=== PATIENT | female | born 1995 | race Caucasian/White ===

== ENCOUNTER 2017-07-06 20:31 | Inpatient (IN) | payer SELFPAY ==
[2017-07-06] MEDS ORDERED: NORMAL SALINE 1000 ML 1,000 ML IV PRN (21:15)
--- NOTE | 2017-07-06 21:25 | ER Document Report ---
ED Blood Sugar Problem - General Chief Complaint: High Blood Sugar Stated Complaint: BLOOD SUGAR PROBLEMS Time Seen by Provider: 07/06/17 21:23 Mode of Arrival: Ambulatory Information source: Patient TRAVEL OUTSIDE OF THE [place] IN LAST 30 DAYS: No - HPI Patient complains to provider of: Elevated blood sugar Onset: This morning Quality of pain: No pain Associated symptoms: Increased thirst, Frequent urination, Nausea Similar symptoms previously: Yes Recently seen / treated by doctor: Yes Notes: Patient is a 21-year-old female with a history of type 1 diabetes since age 7, who presents to the emergency room today complaining of elevated blood sugar which she knows is elevated because she is increased thirst and urination, feels tired and cold, she does not have glucose test strips at home so she does not know what her blood sugar actually is, she did take 20 units of NovoLog today and 20 units of Lantus yesterday evening, patient recently moved to the area from [place], has an appointment with the [facility] on July 29, and this is now her third visit to the emergency room for elevated blood sugar with on admission within the past week as well - Related Data Allergies/Adverse Reactions: latex Allergy (Verified 07/01/17 11:09) Sulfa (Sulfonamide Antibiotics) Allergy (Verified 07/01/17 11:09) Past Medical History - General Information source: Patient - Social History Smoking Status: Current Every Day Smoker Family History: Reviewed & Not Pertinent Patient has suicidal ideation: No Patient has homicidal ideation: No Endocrine Medical History: Reports: Hx Diabetes Mellitus Type 1 Renal/ Medical History: Denies: Hx Peritoneal Dialysis Psychiatric Medical History: Reports: Hx Bipolar Disorder, Hx Depression, Hx Post Traumatic Stress Disorder Past Surgical History: Reports: Other - bilateral hernia repair as a child - Immunizations Hx Diphtheria, Pertussis, Tetanus Vaccination: Yes Review of Systems - Review of Systems Constitutional: No symptoms reported EENT: No symptoms reported Cardiovascular: No symptoms reported Respiratory: No symptoms reported Gastrointestinal: No symptoms reported Genitourinary: See HPI Female Genitourinary: No symptoms reported Musculoskeletal: No symptoms reported Skin: No symptoms reported Hematologic/Lymphatic: No symptoms reported Neurological/Psychological: No symptoms reported -: Yes All other systems reviewed and negative Physical Exam - Vital signs Vitals: Temp Pulse Resp BP Pulse Ox 98.1 F 91 18 131/82 H 100 07/06/17 20:34 07/06/17 20:34 07/06/17 20:34 07/06/17 20:34 07/06/17 20:34 Interpretation: Normal - General General appearance: Appears well, Alert - HEENT Head: Normocephalic, Atraumatic Eyes: Normal Pupils: PERRL - Respiratory Respiratory status: No respiratory distress Chest status: Nontender Breath sounds: Normal Chest palpation: Normal - Cardiovascular Rhythm: Regular Heart sounds: Normal auscultation Murmur: No - Abdominal Inspection: Normal Distension: No distension Bowel sounds: Normal Tenderness: Nontender Organomegaly: No organomegaly - Back Back: Normal, Nontender - Extremities General upper extremity: Normal inspection, Nontender, Normal color, Normal ROM , Normal temperature General lower extremity: Normal inspection, Nontender, Normal color, Normal ROM , Normal temperature, Normal weight bearing. No: Stuart's sign - Neurological Neuro grossly intact: Yes Cognition: Normal Orientation: AAOx4 [place] Coma Scale Eye Opening: Spontaneous [place] Coma Scale Verbal: Oriented [place] Coma Scale Motor: Obeys Commands [place] Coma Scale Total: 15 Speech: Normal Motor strength normal: LUE, RUE, LLE, RLE Sensory: Normal - Psychological Associated symptoms: Tearful - Skin Skin Temperature: Warm Skin Moisture: Dry Skin Color: Normal Course - Re-evaluation Re-evalutation: 07/06/17 22:51 Patient with signs and symptoms of diabetic ketoacidosis, lab values confirm this, insulin drip is started and patient will be admitted to the hospitalist service for further evaluation and treatment - Vital Signs Vital signs: Temp Pulse Resp BP Pulse Ox 98.1 F 91 18 131/82 H 100 07/06/17 20:34 07/06/17 20:34 07/06/17 20:34 07/06/17 20:34 07/06/17 20:34 - Laboratory Result Diagrams: 07/06/17 21:20 07/06/17 21:20 Laboratory results interpreted by me: 07/06/17 07/06/17 07/06/17 21:20 21:20 21:20 MCV 102 H D MCHC 31.8 L Plt Count 138 L VBG pH VBG HCO3 Sodium 125.8 L Chloride 85 L Carbon Dioxide 17 L Anion Gap 24 H Glucose 1189 H* Serum Osmolality 327 H Urine Glucose (UA) Urine Ketones 07/06/17 07/06/17 21:20 21:35 MCV MCHC Plt Count VBG pH 7.28 L VBG HCO3 16.2 L Sodium Chloride Carbon Dioxide Anion Gap Glucose Serum Osmolality Urine Glucose (UA) >=500 H Urine Ketones TRACE H Discharge - Discharge Clinical Impression: Diabetic ketoacidosis Qualifiers: Diabetes mellitus type: type 1 Diabetes mellitus complication detail: without coma Qualified Code(s): E10.10 - Type 1 diabetes mellitus with ketoacidosis without coma Condition: Fair Disposition: ADMITTED INPATIENT Admitting Provider: Hospitalist Unit Admitted: IMCU
[2017-07-06 21:47] LABS: ALANINE AMINOTRANSFERASE 31 U/L (9-52); ALKALINE PHOSPHATASE 114 U/L (38-126); ASPARTATE AMINO TRANSFERASE 31 U/L (14-36); BILIRUBIN,DIRECT 0.4 mg/dL (0.0-0.4); BILIRUBIN,TOTAL 0.9 mg/dL (0.2-1.3); BLOOD UREA NITROGEN 16 mg/dL (7-20); CALCIUM 9.7 mg/dL (8.4-10.2); CARBON DIOXIDE 17 mmol/L (22-30); CHLORIDE 85 mmol/L (98-107); CREATININE RESULT 0.77 mg/dL (0.52-1.25); POTASSIUM 4.2 mmol/L (3.6-5.0); SODIUM 125.8 mmol/L (137-145); TOTAL PROTEIN 7.7 g/dL (6.3-8.2)
[2017-07-06 21:49] LABS: VENOUS BLOOD BASE EXCESS -9.6 mmol/L; VENOUS BLOOD HCO3 16.2 mmol/L (20-32); VENOUS BLOOD PCO2 35.1 mmHg (35-63); VENOUS BLOOD PH 7.28 (7.30-7.42)
[2017-07-06 21:50] LABS: ABSOLUTE EOSINOPHILS # (AUTO) 0.1 10^3/uL (0.0-0.6); ABSOLUTE LYMPHOCYTES (AUTO) 1.7 10^3/uL (0.5-4.7); ABSOLUTE MONOCYTES (AUTO) 0.4 10^3/uL (0.1-1.4); ABSOLUTE NEUT (AUTO) 3.3 10^3/uL (1.7-8.2); BASOPHILS % (AUTO) 0.7 % (0-2); HEMATOCRIT 46.2 % (36.0-47.0); HEMOGLOBIN 14.7 g/dL (12.0-15.5); HGB HCT DIFFERENCE -2.1; LYMPHOCYTES % (AUTO) 30.6 % (13-45); MEAN CORPUSCULAR HEMOGLOBIN 32.6 pg (27.0-33.4); MEAN CORPUSCULAR HGB CONC 31.8 g/dL (32.0-36.0); MONOCYTES % (AUTO) 6.4 % (3-13); RED BLOOD COUNT 4.51 10^6/uL (3.72-5.28); RED CELL DISTRIBUTION WIDTH 13.5 % (11.5-14.0); SEGMENTED NEUTROPHILS % (AUTO) 61.3 % (42-78); WHITE BLOOD COUNT 5.4 10^3/uL (4.0-10.5)
[2017-07-06 21:54] LABS: MEAN CORPUSCULAR VOLUME 102 fl (80-97)
[2017-07-06 22:16] LABS: ANION GAP 24 (5-19)
[2017-07-06 22:17] LABS: GLUCOSE 1189 mg/dL (75-110)
[2017-07-06] MEDS ORDERED: NORMAL SALINE 100 ML with INSULIN REGULAR, HUMAN 100 UNIT IV PRN ×4 (22:19→22:26)
[2017-07-06] MEDS ORDERED: DEXTROSE 50%-WATER 25 GM/50 ML DISP.SYRIN IV PRN ×4 (22:19→22:26)
[2017-07-06] MEDS ORDERED: GLUCAGON,HUMAN RECOMB 1 MG INJ IM PRN ×2 (22:19→22:26)
[2017-07-06] MEDS ORDERED: DEXTROSE 40% GEL 15 GM TUBE PO PRN ×4 (22:19→22:26)
[2017-07-06] MEDS ORDERED: MAG HYDROX/AL HYDROX/SIMETH SUSP 30 ML UDCUP PO PRN (22:26)
[2017-07-06] MEDS ORDERED: ACETAMINOPHEN 325 MG TABLET PO PRN (22:26)
[2017-07-06] MEDS ORDERED: IPRATROPIUM/ALBUTEROL 0.5-2.5 MG/3 ML AMPUL NEB PRN (22:26)
[2017-07-06 22:35] LABS: APPEARANCE,URINE CLEAR; BILIRUBIN,URINE NEGATIVE (NEGATIVE); GLUCOSE, URINE >=500 mg/dL (NEGATIVE); KETONES,URINE TRACE mg/dL (NEGATIVE); LEUKOCYTE ESTERASE,URINE NEGATIVE (NEGATIVE); NITRITE,URINE NEGATIVE (NEGATIVE); PROTEIN,URINE NEGATIVE (NEGATIVE); URINE SPECIFIC GRAVITY 1.026; UROBILINOGEN,URINE NEGATIVE mg/dL (<2.0)
[2017-07-06] MEDS ORDERED: (PENDING PHARMACY ID) (Aripiprazole [Abilify 15 Mg Tablet] 15 MG) PO SCH (22:45)
[2017-07-06] MEDS ORDERED: INSULIN REG, HUMAN 100 UNIT/ML 3 ML VIAL (PYX) ONE (22:49)
[2017-07-06] MEDS ORDERED: TOPIRAMATE 100 MG TABLET PO ONE (23:00)
[2017-07-06] MEDS ORDERED: ARIPIPRAZOLE 5 MG TABLET PO ONE (23:00)
[2017-07-06] MEDS ORDERED: TOPIRAMATE 100 MG TABLET ONE (23:10)
[2017-07-06] MEDS ORDERED: ARIPIPRAZOLE 5 MG TABLET ONE (23:10)
[2017-07-06] MEDS: NORMAL SALINE 1000 ML 1,000 ML IV SCH (23:14)
[2017-07-06] MEDS ORDERED: HALOPERIDOL LACTATE INJ 5 MG/1 ML VIAL IV ONE (23:24)
[2017-07-06] MEDS ORDERED: HALOPERIDOL LACTATE INJ 5 MG/1 ML VIAL ONE (23:30)
[2017-07-06] MEDS ORDERED: POTASSIUM CHLORIDE 10 MEQ TABLET.SA PO ONE (23:43)
[2017-07-07 00:49] LABS: ANION GAP 14 (5-19); BLOOD UREA NITROGEN 11 mg/dL (7-20); CALCIUM 8.9 mg/dL (8.4-10.2); CARBON DIOXIDE 20 mmol/L (22-30); CHLORIDE 103 mmol/L (98-107); CREATININE RESULT 0.56 mg/dL (0.52-1.25); SODIUM 137.1 mmol/L (137-145)
[2017-07-07 01:11] LABS: GLUCOSE 394 mg/dL (75-110)
[2017-07-07] MEDS ORDERED: POTASSIUM CHLORIDE 10 MEQ TABLET.SA PO ONE (01:26)
[2017-07-07] MEDS: NORMAL SALINE 1000 ML 1,000 ML IV SCH (01:51)
[2017-07-07] MEDS: POTASSI CL 20 MEQ/50 ML RIDER 20 MEQ/50 ML RTUPB IV SCH ×2 (02:14→03:11)
[2017-07-07 05:00] LABS: ABSOLUTE EOSINOPHILS # (AUTO) 0.2 10^3/uL (0.0-0.6); ABSOLUTE LYMPHOCYTES (AUTO) 3.1 10^3/uL (0.5-4.7); ABSOLUTE MONOCYTES (AUTO) 0.6 10^3/uL (0.1-1.4); ABSOLUTE NEUT (AUTO) 2.2 10^3/uL (1.7-8.2); BASOPHILS % (AUTO) 0.7 % (0-2); EOSINOPHILS % (AUTO) 2.5 % (0-6); HEMATOCRIT 33.8 % (36.0-47.0); HGB HCT DIFFERENCE 1.9; LYMPHOCYTES % (AUTO) 51.1 % (13-45); MEAN CORPUSCULAR HEMOGLOBIN 32.5 pg (27.0-33.4); MEAN CORPUSCULAR HGB CONC 35.1 g/dL (32.0-36.0); MONOCYTES % (AUTO) 9.9 % (3-13); RED BLOOD COUNT 3.66 10^6/uL (3.72-5.28); RED CELL DISTRIBUTION WIDTH 12.2 % (11.5-14.0); SEGMENTED NEUTROPHILS % (AUTO) 35.8 % (42-78); WHITE BLOOD COUNT 6.1 10^3/uL (4.0-10.5)
[2017-07-07 05:13] LABS: MEAN CORPUSCULAR VOLUME 93 fl (80-97)
[2017-07-07 05:15] LABS: ANION GAP 10 (5-19); BLOOD UREA NITROGEN 10 mg/dL (7-20); CALCIUM 8.4 mg/dL (8.4-10.2); CARBON DIOXIDE 18 mmol/L (22-30); CHLORIDE 112 mmol/L (98-107); GLUCOSE 197 mg/dL (75-110); HEMOGLOBIN 11.9 g/dL (12.0-15.5); SODIUM 139.7 mmol/L (137-145)
[2017-07-07] MEDS ORDERED: DEXTROSE 40% GEL 15 GM TUBE PO PRN ×2 (05:39)
[2017-07-07] MEDS ORDERED: INSULIN LISPRO 100 UNIT/ML 3 ML VIAL SUBCUT PRN (05:39)
[2017-07-07] MEDS ORDERED: DEXTROSE 50%-WATER 25 GM/50 ML DISP.SYRIN IV PRN ×2 (05:39)
[2017-07-07] MEDS ORDERED: GLUCAGON,HUMAN RECOMB 1 MG INJ IM PRN (05:39)
[2017-07-07] MEDS ORDERED: HUM INSULIN NPH/REG INSULIN HM 100 UNIT/1 ML 3 ML SUBCUT ONE (05:43)
--- NOTE | 2017-07-07 06:01 | PDOC H&P ---
History of Present Illness Admission Date/PCP: 07/06/17 22:26 Patient complains of: Nausea History of Present Illness: RONIT FELIPE is a 21 year old female with a past medical history of insulin-dependent diabetes from age 7, bipolar depression and tobacco. She is recently relocated to the area and unable to fill prescriptions for insulin or diabetic supplies. Over the last 10 days she has had polyuria polydipsia and nausea prompting her to seek evaluation emergency room where she was hospitalized for severe hyperglycemia and hyperosmolar state on July 01 and discharged July 02. However she is been unsuccessful in filling her NovoLog insulin which she requires 20 units q. before meals 3 times daily. She returns with similar symptoms and found to have a blood sugar of 1189 and metabolic acidosis. She started on IV insulin and referred to the hospitalist for admission. At which time she states she hates the hospital and is leaving AGAINST MEDICAL ADVICE. Given her history of bipolar, recent outpatient failure and current critical illness of DKA and hyperosmolar state she is administered Haldol 5 mg IV 1 and warned for involuntary commitment. Patient agrees to stay overnight. She otherwise denies fever, cough, back pain or dysuria. She admits recent hospitalization for diabetic ketoacidosis. Past Medical History Cardiac Medical History: Reports: None Pulmonary Medical History: Reports: None Neurological Medical History: Reports: None Endocrine Medical History: Reports: Diabetes Mellitus Type 1 Renal/ Medical History: Reports: None Malignancy Medical History: Reports: None GI Medical History: Reports: None Musculoskeltal Medical History: Reports: None Skin Medical History: Reports: None Psychiatric Medical History: Reports: Bipolar Disorder, Depression, Post Traumatic Stress Disorder Traumatic Medical History: Reports: None Hematology: Reports: None Infectious Medical History: Reports: None Past Surgical History Past Surgical History: Reports: Other - bilateral hernia repair as a child Social History Information Source: Patient Smoking Status: Current Every Day Smoker Cigarettes Packs Per Day: 1 Frequency of Alcohol Use: None Hx Recreational Drug Use: No Drugs: None Hx Prescription Drug Abuse: No - Advance Directive Resuscitation Status: Full Code Family History 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 Parental Family History Reviewed: Yes Children Family History Reviewed: Yes Sibling(s) Family History Reviewed.: Yes Medication/Allergy Home Medications: Insulin Aspart [Novolog Flexpen] 0 unit SUBCUT .SLD SCALE #1 pen 06/27/17 Aripiprazole [Abilify 15 mg Tablet] 15 mg PO QHS 07/01/17 Insulin Glargine,Hum.rec.anlog [Lantus Solostar] 20 units SQ QHS 07/01/17 Topiramate [Topamax] 200 mg PO BID 07/01/17 Blood Sugar Diagnostic [True Metrix Glucose Test Strip] 1 each [facility] #120 strip 07/02/17 Allergies/Adverse Reactions: latex Allergy (Verified 07/01/17 11:09) Sulfa (Sulfonamide Antibiotics) Allergy (Verified 07/01/17 11:09) Review of Systems Constitutional: PRESENT: as per HPI, fatigue. ABSENT: fever(s), headache(s) Eyes: ABSENT: visual disturbances Ears: ABSENT: hearing changes Cardiovascular: ABSENT: chest pain, dyspnea on exertion, edema, orthropnea, palpitations Respiratory: ABSENT: cough, hemoptysis Gastrointestinal: ABSENT: abdominal pain, constipation, diarrhea, hematemesis, hematochezia, nausea, vomiting Genitourinary: ABSENT: dysuria, hematuria Musculoskeletal: ABSENT: joint swelling Integumentary: ABSENT: rash, wounds Neurological: ABSENT: abnormal gait, abnormal speech, confusion, dizziness, focal weakness, syncope Psychiatric: PRESENT: depression Endocrine: PRESENT: as per HPI, polydipsia, polyphagia, polyuria. ABSENT: cold intolerance, heat intolerance Hematologic/Lymphatic: ABSENT: easy bleeding, easy bruising Physical Exam Vital Signs: Temp Pulse Resp BP Pulse Ox 98.0 F 72 20 91/52 L 99 07/07/17 04:46 07/07/17 04:46 07/07/17 04:46 07/07/17 04:46 07/07/17 04:46 Intake & Output 07/05/17 07/06/17 07/07/17 11:59 11:59 11:59 Weight 50.8 kg General appearance: PRESENT: no acute distress, well-developed, well-nourished Head exam: PRESENT: atraumatic, normocephalic Eye exam: PRESENT: conjunctiva pink, EOMI, PERRLA. ABSENT: scleral icterus Ear exam: PRESENT: normal external ear exam Mouth exam: PRESENT: moist, tongue midline Neck exam: ABSENT: carotid bruit, JVD, lymphadenopathy, thyromegaly Respiratory exam: PRESENT: clear to auscultation hui. ABSENT: rales, rhonchi, wheezes Cardiovascular exam: PRESENT: RRR. ABSENT: diastolic murmur, rubs, systolic murmur Pulses: PRESENT: normal dorsalis pedis pul Vascular exam: PRESENT: normal capillary refill GI/Abdominal exam: PRESENT: normal bowel sounds, soft. ABSENT: distended, guarding, mass, organolmegaly, rebound, tenderness Rectal exam: PRESENT: deferred Extremities exam: PRESENT: full ROM. ABSENT: calf tenderness, clubbing, pedal edema Neurological exam: PRESENT: alert, awake, oriented to person, oriented to place , oriented to time, oriented to situation, CN II-XII grossly intact. ABSENT: motor sensory deficit Psychiatric exam: PRESENT: appropriate affect, normal mood. ABSENT: homicidal ideation, suicidal ideation Skin exam: PRESENT: dry, intact, warm. ABSENT: cyanosis, rash Results Laboratory Results: 07/07/17 04:18 07/07/17 04:18 07/07/17 07/07/17 07/07/17 00:24 00:24 04:18 WBC RBC Hgb Hct MCV MCH MCHC RDW Plt Count Seg Neutrophils % Lymphocytes % Monocytes % Eosinophils % Basophils % Absolute Neutrophils Absolute Lymphocytes Absolute Monocytes Absolute Eosinophils Absolute Basophils Sodium 137.1 139.7 Potassium 3.0 L* D 4.0 D Chloride 103 112 H Carbon Dioxide 20 L 18 L Anion Gap 14 10 BUN 11 10 Creatinine 0.56 0.50 L Est GFR ( Amer) > 60 > 60 Est GFR (Non-Af Amer) > 60 > 60 Glucose 394 H 197 H Calcium 8.9 8.4 Magnesium 1.8 07/07/17 04:18 WBC 6.1 RBC 3.66 L Hgb 11.9 L D Hct 33.8 L MCV 93 D MCH 32.5 MCHC 35.1 RDW 12.2 Plt Count 115 L Seg Neutrophils % 35.8 L Lymphocytes % 51.1 H Monocytes % 9.9 Eosinophils % 2.5 Basophils % 0.7 Absolute Neutrophils 2.2 Absolute Lymphocytes 3.1 Absolute Monocytes 0.6 Absolute Eosinophils 0.2 Absolute Basophils 0.0 Sodium Potassium Chloride Carbon Dioxide Anion Gap BUN Creatinine Est GFR ( Amer) Est GFR (Non-Af Amer) Glucose Calcium Magnesium Assessment & Plan - Diagnosis (1) Diabetic ketoacidosis Qualifiers: Diabetes mellitus type: type 1 Diabetes mellitus complication detail: without coma Qualified Code(s): E10.10 - Type 1 diabetes mellitus with ketoacidosis without coma Is this a current diagnosis for this admission?: Yes Plan: Diabetic ketoacidosis patient has had some degree of polyuria polydipsia with nausea and uncontrolled hyperglycemia with supporting labs. Patient will receive IV fluids IV insulin serial chemistries every 6 hours for evaluation for electrolyte repletion. Continued evaluation for underlying cause if not found Patient will require diabetic education and consideration of mental health evaluation given poor insight, recurrent admission and A1c greater than 14. (2) Dehydration Is this a current diagnosis for this admission?: Yes Plan: IV fluid hydration follow-up chemistry (3) Hyperglycemia Is this a current diagnosis for this admission?: Yes Plan: With hyperosmolar state, IV fluids IV insulin serial chemistries every 6 hours for evaluation for electrolyte repletion. Continued evaluation for underlying cause if not found Patient will require diabetic education and consideration of mental health evaluation. (4) Hyponatremia Is this a current diagnosis for this admission?: Yes Plan: Pseudohyponatremia secondary to severe hyperglycemia reevaluate with following chemistry for correction (5) Bipolar 1 disorder Is this a current diagnosis for this admission?: Yes Plan: Abi Servin consult mental health ordered (6) Tobacco abuse Is this a current diagnosis for this admission?: Yes Plan: Tobacco Dependence patient received tobacco cessation counseling and offered nicotine replacement options - Time Time Spent: 50 to 70 Minutes - Inpatient Certification Medical Necessity: Need Close Monitoring Due to Risk of Patient Decompensation
[2017-07-07] MEDS: HEPARIN SOD (PORCINE) 5,000 UNIT/ML 1 ML SYRINGE SUBCUT SCH ×2 (06:24→14:33)
[2017-07-07] MEDS: INSULIN LISPRO 100 UNIT/ML 3 ML VIAL SUBCUT SCH ×2 (08:00→12:07)
[2017-07-07] MEDS ORDERED: TOPIRAMATE 100 MG TABLET PO SCH ×2 (10:00)
[2017-07-07] MEDS ORDERED: (PENDING PHARMACY ID) (Topiramate [Topamax] 200 MG) PO SCH (10:00)
[2017-07-07] MEDS ORDERED: DOCUSATE SODIUM 100 MG CAPSULE PO SCH (10:00)
[2017-07-07] MEDS ORDERED: INSULIN GLARGINE,HUM.REC.ANLOG 300 UNIT/3 ML INSULN.PEN SUBCUT ONE (15:00)
--- NOTE | 2017-07-07 15:06 | PDOC DISCHARGE SUMMARY ---
General - Admit/Disc Date/PCP Admission Date/Primary Care Provider: 07/06/17 22:26 Discharge Date: 07/07/17 - Discharge Diagnosis (1) Diabetic ketoacidosis Is this a current diagnosis for this admission?: Yes (2) Dehydration Is this a current diagnosis for this admission?: Yes (3) Bipolar 1 disorder Is this a current diagnosis for this admission?: Yes - Additional Information Resuscitation Status: Full Code Discharge Diet: Diabetic Discharge Activity: Activity As Tolerated Home Medications: Aripiprazole [Abilify 15 mg Tablet] 15 mg PO QHS 07/07/17 Insulin Aspart [Novolog Insulin (Aspart) 100 unit/mL] 0 unit SUBCUT .SLD SCALE 07/07/17 Insulin Glargine,Hum.rec.anlog [Lantus Solostar] 20 unit SQ QHS #1 insuln.pen Topiramate [Topamax] 200 mg PO BID 07/07/17 History of Present Illness History of Present Illness: RONIT FELIPE is a 21 year old female with a history of type 1 diabetes since age 7 as well as bipolar depression who presented with complaints of polyuria and polydipsia along with nausea and vomiting. The patient has been unable to afford her insulin or diabetic supplies. The patient recently was admitted on July 01 discharge July 02 with hyperosmolar state. Patient did not have any fevers or chills. Patient has no evidence for infection and is admitted for IV fluids as well as insulin. Hospital Course Hospital Course: 21-year-old female with type 1 diabetes who presented with diabetic ketoacidosis. The patient had not been taking her medicine for the last several days because of inability to afford them. She was given IV fluids along with IV insulin and had resolution of her DKA. The patient has been instructed to go to the [facility] for help with her medications. Discharge planning also suggested that she apply for Medicaid. The patient is tolerating p.o. well and her dehydration has resolved. We will give her the Lantus pen that she used here and will be discharged home. Physical Exam Vital Signs: Temp Pulse Resp BP Pulse Ox 98.8 F 76 18 90/48 L 100 07/07/17 12:24 07/07/17 12:24 07/07/17 12:24 07/07/17 12:24 07/07/17 12:24 Intake & Output 07/06/17 07/07/17 07/08/17 06:59 06:59 06:59 Intake Total 50 591 Output Total 0 Balance 50 591 Weight 52.3 kg General appearance: PRESENT: no acute distress Eye exam: PRESENT: conjunctiva pink. ABSENT: scleral icterus Neck exam: ABSENT: JVD Respiratory exam: PRESENT: clear to auscultation hui. ABSENT: rales, rhonchi, wheezes Cardiovascular exam: PRESENT: RRR. ABSENT: diastolic murmur, rubs, systolic murmur GI/Abdominal exam: PRESENT: normal bowel sounds, soft. ABSENT: distended, guarding, mass, organolmegaly, rebound, tenderness Neurological exam: PRESENT: alert, awake, oriented to person, oriented to place , oriented to time, oriented to situation, CN II-XII grossly intact. ABSENT: motor sensory deficit Skin exam: PRESENT: dry, intact, warm. ABSENT: cyanosis, rash Results Laboratory Results: 07/07/17 04:18 07/07/17 04:18 07/07/17 07/07/17 07/07/17 00:24 00:24 04:18 WBC RBC Hgb Hct MCV MCH MCHC RDW Plt Count Seg Neutrophils % Lymphocytes % Monocytes % Eosinophils % Basophils % Absolute Neutrophils Absolute Lymphocytes Absolute Monocytes Absolute Eosinophils Absolute Basophils Sodium 137.1 139.7 Potassium 3.0 L* D 4.0 D Chloride 103 112 H Carbon Dioxide 20 L 18 L Anion Gap 14 10 BUN 11 10 Creatinine 0.56 0.50 L Est GFR ( Amer) > 60 > 60 Est GFR (Non-Af Amer) > 60 > 60 Glucose 394 H 197 H Calcium 8.9 8.4 Magnesium 1.8 07/07/17 04:18 WBC 6.1 RBC 3.66 L Hgb 11.9 L D Hct 33.8 L MCV 93 D MCH 32.5 MCHC 35.1 RDW 12.2 Plt Count 115 L Seg Neutrophils % 35.8 L Lymphocytes % 51.1 H Monocytes % 9.9 Eosinophils % 2.5 Basophils % 0.7 Absolute Neutrophils 2.2 Absolute Lymphocytes 3.1 Absolute Monocytes 0.6 Absolute Eosinophils 0.2 Absolute Basophils 0.0 Sodium Potassium Chloride Carbon Dioxide Anion Gap BUN Creatinine Est GFR ( Amer) Est GFR (Non-Af Amer) Glucose Calcium Magnesium Qualifiers [place] BEING DISCHARGED WITH ANY OF THE FOLLOWING DIAGNOSIS?: No Plan Discharge Plan: Patient is discharged home. [facility]. Time Spent: Less than 30 Minutes
[2017-07-07 15:21] VITALS: BP 100/56
[2017-07-07] MEDS ORDERED: INSULIN GLARGINE,HUM.REC.ANLOG 300 UNIT/3 ML INSULN.PEN SUBCUT SCH (22:00)
[2017-07-07] MEDS ORDERED: ARIPIPRAZOLE 5 MG TABLET PO SCH (22:00)
[2017-07-08] MEDS ORDERED: INSULIN GLARGINE,HUM.REC.ANLOG 300 UNIT/3 ML INSULN.PEN SUBCUT SCH (10:00)
== END 2017-07-07 15:59 | disposition home or self-care (01) | DRG 638 ==
LOC: ER 20:31 → EH 22:26 → UNDOADMIN 22:30 → EH 22:30 → 3W 07-07 00:45
PROVIDERS: ADMIT Internal Medicine; ATTEND Internal Medicine
DX: E10.10 Type 1 diabetes mellitus with ketoacidosis without coma (principal); E87.1 Hypo-osmolality and hyponatremia; T38.3X6A Underdosing of insulin and oral hypoglycemic [antidiabetic] drugs, initial encounter; E86.0 Dehydration; F32.9 Major depressive disorder, single episode, unspecified; Z79.4 Long term (current) use of insulin; Z59.7 Insufficient social insurance and welfare support; Z91.138 Patient's unintentional underdosing of medication regimen for other reason; F43.10 Post-traumatic stress disorder, unspecified; F17.210 Nicotine dependence, cigarettes, uncomplicated; Z88.2 Allergy status to sulfonamides; Z91.040 Latex allergy status
CPT/HCPCS: 36415; 80048; 80053; 81001; 81025; 82803; 82962; 83735; 83930; 85025; 96360; 99285; J1630; J1815; J3480; J3490; J7030

== ENCOUNTER 2017-07-22 20:54 | Emergency (ER) | payer SELFPAY ==
[2017-07-22] MEDS ORDERED: RINGERS SOLUTION,LACTATED 2,000 ML IV ONE (22:24)
[2017-07-22] MEDS ORDERED: FLUCONAZOLE 100 MG TABLET PO ONE (22:40)
--- NOTE | 2017-07-22 22:40 | ER Document Report ---
ED General - General Chief Complaint: High Blood Sugar Stated Complaint: BLOOD SUGAR PROBLEM Time Seen by Provider: 07/22/17 22:24 Notes: Patient is a 21-year-old female with past medical history of insulin-dependent type 1 diabetes who presents with hypoglycemia. Patient states that her blood sugars have been reading high at home and she was concerned about again going into diabetic ketoacidosis that she has come back to the hospital. She states that she has been rationing her insulin as she does not have access to insurance and is concerned that she will run out. She does note that she has had some mild dysuria but otherwise denies any focal complaints. Nothing improves or worsens or dysuria. She denies any fever, vomiting, flank pain, headache or neck pain. She does also state that she think she currently has a yeast infection. She has a scheduled appointment at the end of the week with the [facility]. TRAVEL OUTSIDE OF THE [place] 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 HENT: Negative for sore throat. Eyes: Negative for visual changes. Cardiovascular: Negative for chest pain. Respiratory: Negative for shortness of breath. Gastrointestinal: Negative for abdominal pain, vomiting or diarrhea. Genitourinary: Positive for dysuria. Musculoskeletal: Negative for back pain. Skin: Negative for rash. Neurological: Negative for headaches, weakness or numbness. 10 point ROS negative except as marked above and in HPI. Physical Exam - Vital signs Vitals: Temp Pulse Resp BP Pulse Ox 97.6 F 99 18 116/71 95 07/22/17 21:14 07/22/17 21:14 07/22/17 21:14 07/22/17 21:14 07/22/17 21:14 Notes: PHYSICAL EXAMINATION: GENERAL: Well-appearing, well-nourished and in no acute distress. HEAD: Atraumatic, normocephalic. EYES: Pupils equal round and reactive to light, extraocular movements intact, sclera anicteric, conjunctiva are normal. ENT: nares patent, oropharynx clear without exudates. Moist mucous membranes. NECK: Normal range of motion, supple without lymphadenopathy LUNGS: Breath sounds clear to auscultation bilaterally and equal. No wheezes rales or rhonchi. HEART: Regular rate and rhythm without murmurs ABDOMEN: Soft, nontender, normoactive bowel sounds. No guarding, no rebound. No masses appreciated. EXTREMITIES: Normal range of motion, no pitting or edema. No cyanosis. NEUROLOGICAL: No focal neurological deficits. Moves all extremities spontaneously and on command. PSYCH: Normal mood, normal affect. SKIN: Warm, Dry, normal turgor, no rashes or lesions noted. Course - Re-evaluation Re-evalutation: 07/22/17 22:39 Patient presents with hyperglycemia and associated dysuria as well as concerns of having a yeast infection. Patient knows that she is rationing her insulin and she does not have medical insurance and is trying to extend the insulin she does have to prevent herself from going back into diabetic ketoacidosis. Patient is overall nontoxic appearance, vitals within normal limits and she is in no distress. She does appear mildly dehydrated. Will obtain laboratories to evaluate for diabetic ketoacidosis as well as concern of possible urinary tract infection. Patient does report that she has symptoms of a yeast infections will treat with a single dose of fluconazole. Will begin rehydration with 2 L of IV lactated Ringer's. 07/23/17 00:44 Blood sugar is elevated at 798 although there is no evidence of diabetic ketoacidosis, blood gas is normal. Will administer 15 units of IV regular insulin, continue with fluids and recheck 07/23/17 02:21 Blood sugar has reduced down to 430. Patient has continued to tolerate oral intake. Urinalysis does show findings consistent with a possible urinary tract infection and patient will be started on cephalexin. Urine culture has been sent. Patient has been instructed to follow-up with the clinic with which she has a scheduled appointment to continue management of her chronic diabetes. We have also provided her with lancets so that she can test her blood sugar at home. I have instructed her not to ration her insulin intake and as directed. At this time will discharge with return precautions and follow-up recommendations. Verbal discharge instructions given a the bedside and opportunity for questions given. Medication warnings reviewed. Patient is in agreement with this plan and has verbalized understanding of return precautions and the need for primary care follow-up in the next 24-72 hours. - Vital Signs Vital signs: Temp Pulse Resp BP Pulse Ox 97.6 F 74 18 114/62 97 07/22/17 21:14 07/23/17 02:50 07/23/17 02:50 07/23/17 02:50 07/23/17 02:50 - Laboratory Result Diagrams: 07/22/17 23:03 07/23/17 00:05 Laboratory results interpreted by me: 07/22/17 07/22/17 07/23/17 21:19 23:03 00:05 MCV 101 H D MCHC 31.4 L Plt Count 131 L Sodium 128.6 L Chloride 95 L Carbon Dioxide 15 L BUN 28 H Glucose 794 H* POC Glucose Urine Glucose (UA) >=500 H Urine Ketones 20 H Urine Blood LARGE H 07/23/17 02:14 MCV MCHC Plt Count Sodium Chloride Carbon Dioxide BUN Glucose POC Glucose 431 H* Urine Glucose (UA) Urine Ketones Urine Blood Discharge - Discharge Clinical Impression: Hyperglycemia, Yeast infection of the vagina, Dehydration Urinary tract infection Qualifiers: Urinary tract infection type: acute cystitis Hematuria presence: without hematuria Qualified Code(s): N30.00 - Acute cystitis without hematuria Condition: Good Disposition: HOME, SELF-CARE Additional Instructions: Your urine shows findings consistent with a urinary tract infection. Please take all the antibiotics as directed even if your symptoms have improved. Please follow-up with your primary care physician as needed. Return to emergency room if you develop fever >101F, persistent vomiting, become lethargic , have severe pain in your sides, or any other symptoms that are concerning to you. You need to followup urgently with your primary care doctor as your blood sugars were dangerously high today. You did not have any evidence of a dangerous condition associated with these blood sugars at this time. However, it is very important that you get your blood sugars under control. Please take all of your medications exactly as directed. You should avoid foods that are high in carbohydrates and sugary foods. Please return to emergency department immediately if you develop weakness, persistent vomiting, confusion, or any other symptoms that are concerning to you. Prescriptions: Cephalexin Monohydrate [Keflex 500 mg Capsule] 500 mg PO Q6H 5 Days capsule
[2017-07-22 23:17] LABS: VENOUS BLOOD BASE EXCESS -5.7 mmol/L; VENOUS BLOOD HCO3 20.2 mmol/L (20-32); VENOUS BLOOD PH 7.31 (7.30-7.42)
[2017-07-22 23:25] LABS: ABSOLUTE EOSINOPHILS # (AUTO) 0.1 10^3/uL (0.0-0.6); ABSOLUTE MONOCYTES (AUTO) 0.5 10^3/uL (0.1-1.4); BASOPHILS % (AUTO) 0.6 % (0-2)
[2017-07-22 23:28] LABS: APPEARANCE,URINE SLIGHTLY-CLOUDY; BILIRUBIN,URINE NEGATIVE (NEGATIVE); GLUCOSE, URINE >=500 mg/dL (NEGATIVE); KETONES,URINE 20 mg/dL (NEGATIVE); LEUKOCYTE ESTERASE,URINE NEGATIVE (NEGATIVE); NITRITE,URINE NEGATIVE (NEGATIVE); PROTEIN,URINE NEGATIVE (NEGATIVE); URINE SPECIFIC GRAVITY 1.027; UROBILINOGEN,URINE NEGATIVE mg/dL (<2.0)
[2017-07-22 23:38] LABS: ABSOLUTE NEUT (AUTO) 4.6 10^3/uL (1.7-8.2); EOSINOPHILS % (AUTO) 0.8 % (0-6); HEMATOCRIT 44.9 % (36.0-47.0); HEMOGLOBIN 14.1 g/dL (12.0-15.5); HGB HCT DIFFERENCE -2.6; LYMPHOCYTES % (AUTO) 27.8 % (13-45); MEAN CORPUSCULAR HEMOGLOBIN 31.7 pg (27.0-33.4); MEAN CORPUSCULAR HGB CONC 31.4 g/dL (32.0-36.0); MONOCYTES % (AUTO) 7.2 % (3-13); RED BLOOD COUNT 4.45 10^6/uL (3.72-5.28); RED CELL DISTRIBUTION WIDTH 13.5 % (11.5-14.0); SEGMENTED NEUTROPHILS % (AUTO) 63.6 % (42-78); WHITE BLOOD COUNT 7.2 10^3/uL (4.0-10.5)
[2017-07-22 23:43] LABS: MEAN CORPUSCULAR VOLUME 101 fl (80-97)
[2017-07-23 00:31] LABS: ANION GAP 19 (5-19); BLOOD UREA NITROGEN 28 mg/dL (7-20); CARBON DIOXIDE 15 mmol/L (22-30); CHLORIDE 95 mmol/L (98-107); CREATININE RESULT 0.76 mg/dL (0.52-1.25); POTASSIUM 4.4 mmol/L (3.6-5.0); SODIUM 128.6 mmol/L (137-145)
[2017-07-23 00:43] LABS: GLUCOSE 794 mg/dL (75-110)
[2017-07-23] MEDS ORDERED: INSULIN REG, HUMAN 100 UNIT/ML 3 ML VIAL (PYX) IV ONE (00:43)
[2017-07-23] MEDS ORDERED: CEPHALEXIN 500 MG CAPSULE PO ONE (02:22)
[2017-07-23 02:50] VITALS: BP 114/62
== END 2017-07-23 02:50 | disposition home or self-care (01) ==
LOC: ER 20:54
DX: N30.00 Acute cystitis without hematuria (principal); E10.65 Type 1 diabetes mellitus with hyperglycemia; B37.3 Candidiasis of vulva and vagina; E86.0 Dehydration; R30.0 Dysuria
CPT/HCPCS: 99285; 96365; 96366; 36415; 87086; 82962; 85025; 81025; 80048; 81001; 82803; J1815; J7120

== ENCOUNTER 2017-07-25 21:29 | Emergency (ER) | payer OTHER ==
[2017-07-25] MEDS ORDERED: HYDROCODONE/ACETAMINOPHEN 5-325 MG TABLET PO ONE (23:14)
[2017-07-26 00:10] LABS: APPEARANCE,URINE CLEAR; BILIRUBIN,URINE NEGATIVE (NEGATIVE); GLUCOSE, URINE >=500 mg/dL (NEGATIVE); KETONES,URINE 80 mg/dL (NEGATIVE); LEUKOCYTE ESTERASE,URINE NEGATIVE (NEGATIVE); NITRITE,URINE NEGATIVE (NEGATIVE); PROTEIN,URINE NEGATIVE (NEGATIVE); URINE SPECIFIC GRAVITY 1.023; UROBILINOGEN,URINE NEGATIVE mg/dL (<2.0)
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
[2017-07-26 01:19] LABS: URINE BARBITURATES SCREEN NEGATIVE; URINE METHADONE SCREEN NEGATIVE; URINE OPIATES LOW NEGATIVE; URINE PHENCYCLIDINE SCREEN NEGATIVE
[2017-07-26 01:36] VITALS: BP 134/97
== END 2017-07-26 01:37 | disposition home or self-care (01) ==
LOC: ER 21:29
DX: F41.9 Anxiety disorder, unspecified (principal); M54.2 Cervicalgia; M54.9 Dorsalgia, unspecified; V87.7XXA Person injured in collision between other specified motor vehicles (traffic), initial encounter
CPT/HCPCS: 99284; 81025; 81001; 80307; 72125; 72128; 72131; L0120

== ENCOUNTER 2017-08-07 11:11 | Emergency (ER) | payer SELFPAY ==
[2017-08-07 11:19] VITALS: BP 113/69
--- NOTE | 2017-08-07 11:41 | ER Document Report ---
ED GI/ - General Chief Complaint: STD Exposure Stated Complaint: STD CHECK Time Seen by Provider: 08/07/17 11:18 Mode of Arrival: Ambulatory Information source: Patient Notes: 21-year-old female presents to ED for complaint of STD exposure. She states she has a fishy odor from her vaginal area. She states she does not have any is itching or discharge. TRAVEL OUTSIDE OF THE [place] IN LAST 30 DAYS: No - HPI Patient complains to provider of: Other - Vaginal discharge Onset: Other - Several days Quality of pain: No pain Pain Level: Denies Vaginal bleeding (Compared to normal period): None Sexual history: Active, Unprotected intercourse, STD exposure Associated symptoms: Other - Vaginal odor Exacerbated by: Denies Relieved by: Denies Similar symptoms previously: Yes Recently seen / treated by doctor: No - Related Data Allergies/Adverse Reactions: latex Allergy (Verified 07/22/17 21:14) Sulfa (Sulfonamide Antibiotics) Allergy (Verified 07/22/17 21:14) Past Medical History - General Information source: Patient - Social History Smoking Status: Current Every Day Smoker Cigarette use (# per day): Yes - 2 cigarettes a day Chew tobacco use (# tins/day): No Smoking Education Provided: Yes - Less than 1 minute Frequency of alcohol use: Social Drug Abuse: None Occupation: None Lives with: Spouse/Significant other Family 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, 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 Patient has suicidal ideation: No Patient has homicidal ideation: No - Past Medical History Cardiac Medical History: Reports: None Pulmonary Medical History: Reports: None EENT Medical History: Reports: None Neurological Medical History: Reports: None Endocrine Medical History: Reports: Hx Diabetes Mellitus Type 1 Renal/ Medical History: Reports: None Malignancy Medical History: Reports: None GI Medical History: Reports: None Musculoskeltal Medical History: Reports None Skin Medical History: Reports None Psychiatric Medical History: Reports: Hx Anxiety, Hx Bipolar Disorder, Hx Depression, Hx Post Traumatic Stress Disorder Traumatic Medical History: Reports: None Past Surgical History: Reports: Hx Inguinal Hernia - Immunizations Immunizations up to date: Yes Hx Diphtheria, Pertussis, Tetanus Vaccination: Yes Review of Systems - Review of Systems Constitutional: No symptoms reported EENT: No symptoms reported Cardiovascular: No symptoms reported Respiratory: No symptoms reported Gastrointestinal: No symptoms reported Genitourinary: No symptoms reported Female Genitourinary: Vaginal odor Musculoskeletal: No symptoms reported Skin: No symptoms reported Hematologic/Lymphatic: No symptoms reported Neurological/Psychological: No symptoms reported -: Yes All other systems reviewed and negative Physical Exam - Vital signs Vitals: Temp Pulse BP Pulse Ox 97.8 F 80 113/69 97 08/07/17 11:16 12 11:16 08/07/17 11:16 08/07/17 11:16 Interpretation: Normal - General General appearance: Appears well, Alert - HEENT Head: Normocephalic, Atraumatic Eyes: Normal Pupils: PERRL - Respiratory Respiratory status: No respiratory distress Chest status: Nontender Breath sounds: Normal Chest palpation: Normal - Cardiovascular Rhythm: Regular Heart sounds: Normal auscultation Murmur: No - Abdominal Inspection: Normal Distension: No distension Bowel sounds: Normal Tenderness: Nontender. No: Tender - No pelvic tenderness either Organomegaly: No organomegaly - Genitourinary External exam: Normal Speculum exam: Other - Patient did self swabs for GC and chlamydia and wet mount - Back Back: Normal, Nontender - Extremities General upper extremity: Normal inspection, Nontender, Normal color, Normal ROM , Normal temperature General lower extremity: Normal inspection, Nontender, Normal color, Normal ROM , Normal temperature, Normal weight bearing. No: Stuart's sign - Neurological Neuro grossly intact: Yes Cognition: Normal Orientation: AAOx4 [place] Coma Scale Eye Opening: Spontaneous Shira Coma Scale Verbal: Oriented [place] Coma Scale Motor: Obeys Commands [place] Coma Scale Total: 15 Speech: Normal Motor strength normal: LUE, RUE, LLE, RLE Sensory: Normal - Psychological Associated symptoms: Normal affect, Normal mood - Skin Skin Temperature: Warm Skin Moisture: Dry Skin Color: Normal Course - Vital Signs Vital signs: Temp Pulse Resp BP Pulse Ox 97.8 F 80 113/69 97 08/07/17 11:16 08/07/17 11:16 08/07/17 11:16 08/07/17 11:16 - Laboratory Laboratory results interpreted by me: 08/07/17 11:35 Urine Glucose (UA) >=500 H Urine Ketones TRACE H Urine Nitrite POSITIVE H Discharge - Discharge Clinical Impression: Vaginitis Qualifiers: Chronicity: acute Qualified Code(s): N76.0 - Acute vaginitis UTI (urinary tract infection) Qualifiers: Urinary tract infection type: acute cystitis Hematuria presence: with hematuria Qualified Code(s): N30.01 - Acute cystitis with hematuria Condition: Stable Disposition: HOME, SELF-CARE Instructions: Family Physicians / Practices, [facility] Additional Instructions: VAGINITIS: Your exam shows that you have vaginitis, a vaginal infection. The infection can be caused by a many different organisms, including trichomonas or Gardnerella. The usual symptoms are vaginal irritation and discharge. The treatment is usually antibiotics such as Flagyl. Laboratory tests can determine which germ is responsible. Use the medication as prescribed. Because this infection can be transmitted sexually, your sexual partner may need to be checked and treated also. If your physician has not discussed this with you, please check before resuming sexual relations. If a culture shows gonorrhea or chlamydia, the infection must be reported to the health department. Call the doctor if you develop pelvic pain, fever, or problems with urination, or if you don't improve as expected. VAGINOSIS, BACTERIAL: Your exam shows you have bacterial vaginosis. This condition is due to an overgrowth of bacteria in the vagina. Symptoms may include vaginal itching or pain, a smelly discharge, and sometimes burning with urination. Normally this is not transmitted by sexual contact. Vaginosis can be treated with oral or topical antibiotics. Metronidazole ( Flagyl) pills are usually effective. Topical vaginal creams include Cleocin and Metro-Gel. You should avoid sexual contact until your symptoms are all better. Call the doctor if you develop pelvic pain, fever, or problems with urination, or if you don't improve as expected. CEPHALOSPORINS: An antibiotic of the cephalosporin class has been prescribed. This type of antibiotic covers a wide variety of infections, including those of the skin, lungs, middle ear, and urinary tract. This antibiotic is somewhat similar to the penicillin family. In rare cases , a person who is allergic to penicillin will also be allergic to this medication. If you have had a severe allergic reaction to penicillin, and have not taken this antibiotic since that time, notify your doctor. Antibiotics which cover many germs ("broad spectrum" antibiotics) are more likely to cause diarrhea or "yeast" infections. Women prone to vaginal yeast problems may suffer an attack after taking this antibiotic. In infants, oral thrush (white spots "stuck" on the cheek) or yeast diaper rash may result. See your doctor if these problems occur. Call the doctor at once if you develop hives, itching, shortness of breath , or lightheadedness. DOXYCYCLINE: Doxycycline (Vibramycin, Doryx) is an antibiotic of the tetracycline family. This type of drug is useful for infections of the respiratory tract and genital tract, and is sometimes used for intestinal infections. Unlike most tetracyclines, doxycycline can be taken with food. It is longer acting, and (usually) less prone to side effects than regular tetracycline. Tetracycline antibiotics can stain immature teeth and SHOULD NOT BE TAKEN BY CHILDREN, NURSING MOTHERS, OR WOMEN. Tetracyclines can make you more prone to sunburn. Abdominal cramping, nausea, and diarrhea are occasional side effects. Women may experience vaginal yeast infections. Call the doctor at once if you develop hives, itching, shortness of breath , or lightheadedness. AZITHROMYCIN: Azithromycin (Zithromax) is a broad spectrum antibiotic in the same class as erythromycin. It can treat a variety of bacterial infections, but is most frequently used for respiratory infections. Azithromycin is extremely long-lasting. It accumulates in body tissues and continues to kill bacteria for many days. In order to improve absorption, Azithromycin should be taken at least one hour before or two hours after a meal. It does not have the same strong tendency to upset the stomach as erythromycin and is usually very well tolerated. Patients who have had a rash or other true allergic reactions to erythromycin should not take this medication. Call if you develop gastrointestinal distress, severe diarrhea, rash, hives, itching, or shortness of breath. METRONIDAZOLE: Metronidazole (Flagyl) has been prescribed. This medication is used to kill a type of bacteria called anaerobes, and protozoan parasites such as trichomonas and Giardia. Flagyl often causes a metallic taste in the mouth and mild nausea. Do not use alcohol in any form with Flagyl (including alcohol in medication elixirs). Flagyl interacts with alcohol to cause flushing, palpitations, headache, stomach cramps, and vomiting. Do not use Flagyl if you are taking Antabuse (disulfiram). Call the doctor at once if you develop rash, shortness of breath, itching, or lightheadedness. FOLLOW-UP CARE: If you have been referred to a physician for follow-up care, call the physician s office for an appointment as you were instructed or within the next two days. If you experience worsening or a significant change in your symptoms, notify the physician immediately or return to the Emergency Department at any time for re-evaluation. Prescriptions: Promethazine HCl [Phenergan 25 mg Tablet] 25 mg PO Q6HP PRN #10 tablet PRN Reason: Ciprofloxacin HCl [Cipro 500 mg Tablet] 500 mg PO BID #20 tablet Nitrofurantoin/Nitrofuran Mac [Macrobid 100 mg Capsule] 1 tab PO BID #20 capsule Referrals: [facility] [Provider Group] - Follow up as needed
[2017-08-07 11:53] LABS: AMORPHOUS SEDIMENT,URINE TRACE /HPF; APPEARANCE,URINE CLOUDY; BILIRUBIN,URINE NEGATIVE (NEGATIVE); GLUCOSE, URINE >=500 mg/dL (NEGATIVE); KETONES,URINE TRACE mg/dL (NEGATIVE); LEUKOCYTE ESTERASE,URINE NEGATIVE (NEGATIVE); NITRITE,URINE POSITIVE (NEGATIVE); PROTEIN,URINE NEGATIVE (NEGATIVE); URINE SPECIFIC GRAVITY 1.021; UROBILINOGEN,URINE NEGATIVE mg/dL (<2.0)
[2017-08-07] MEDS ORDERED: AZITHROMYCIN 250 MG TABLET PO ONE (11:53)
[2017-08-07] MEDS ORDERED: CEFTRIAXONE INJ 250 MG VIAL IM ONE (11:53)
[2017-08-07] MEDS ORDERED: LIDOCAINE 1% INJ-PF (10 MG/ML) 30 ML SDV INJ ONE (11:53)
[2017-08-07] MEDS ORDERED: NITROFURANTOIN MONOHYD/M-CRYST 100 MG CAPSULE PO ONE (11:54)
[2017-08-07] MEDS ORDERED: METRONIDAZOLE 500 MG TABLET PO ONE (11:56)
== END 2017-08-07 12:18 | disposition home or self-care (01) ==
LOC: ER 11:11
DX: N76.0 Acute vaginitis (principal); N30.01 Acute cystitis with hematuria; Z20.2 Contact with and (suspected) exposure to infections with a predominantly sexual mode of transmission; E10.9 Type 1 diabetes mellitus without complications; F17.210 Nicotine dependence, cigarettes, uncomplicated; Z71.6 Tobacco abuse counseling; Z91.040 Latex allergy status; Z88.2 Allergy status to sulfonamides
CPT/HCPCS: 99283; 96372; 87210; 81025; 81001; 87491; 87591; J3490; J0696; J8499

== ENCOUNTER 2017-08-15 11:16 | Inpatient (IN) | payer SELFPAY ==
[2017-08-15] MEDS ORDERED: NORMAL SALINE 1000 ML 1,000 ML IV ONE ×2 (11:57→21:47)
[2017-08-15] MEDS ORDERED: RINGERS SOLUTION,LACTATED 1,000 ML IV ONE (11:57)
--- NOTE | 2017-08-15 11:59 | ER Document Report ---
ED General - General Chief Complaint: High Blood Sugar Stated Complaint: BLOOD SUGAR ISSUES Time Seen by Provider: 08/15/17 11:56 Mode of Arrival: Medic Information source: Patient Notes: This is a 21-year-old female with a history of type 1 diabetes, PTSD, bipolar affective disorder who presents to the emergency room with elevated blood sugar. Patient states she ran out of her insulin yesterday (does not have insurance). Patient denies any recent illnesses. She does state she had 2 beers and a few shots last night and vomited on her friend's rug. Allergies: Sulfa and latex TRAVEL OUTSIDE OF THE [place] IN LAST 30 DAYS: No - HPI Onset: Just prior to arrival Onset/Duration: Gradual Quality of pain: No pain Severity: None Pain Level: Denies Associated symptoms: Nausea, Vomiting Exacerbated by: Denies Relieved by: Denies Similar symptoms previously: Yes Recently seen / treated by doctor: No - Related Data Allergies/Adverse Reactions: latex Allergy (Verified 07/22/17 21:14) Sulfa (Sulfonamide Antibiotics) Allergy (Verified 07/22/17 21:14) Home Medications: Current Home Medications Aripiprazole [Abilify 15 mg Tablet] 7.5 mg PO DAILY 08/15/17 [History] Insulin Aspart [Novolog Flexpen] 0 unit SUBCUT .SLD SCALE 08/15/17 [History] Insulin Glargine,Hum.rec.anlog [Lantus Solostar] 15 unit SUBCUT QHS 08/15/17 [ History] Topiramate [Topamax 100 Mg Tablet] 200 mg PO Q12 08/15/17 [History] Past Medical History - General Information source: Patient - Social History Smoking Status: Never Smoker Cigarette use (# per day): No Chew tobacco use (# tins/day): No Frequency of alcohol use: Occasional Drug Abuse: None Lives with: Friend Family 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, 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 Patient has suicidal ideation: No Patient has homicidal ideation: No Endocrine Medical History: Reports: Hx Diabetes Mellitus Type 1 Renal/ Medical History: Denies: Hx Peritoneal Dialysis Psychiatric Medical History: Reports: Hx Anxiety, Hx Bipolar Disorder, Hx Depression, Hx Post Traumatic Stress Disorder Past Surgical History: Reports: Hx Abdominal Surgery - hernia repair, Hx Inguinal Hernia - Immunizations Immunizations up to date: Yes Hx Diphtheria, Pertussis, Tetanus Vaccination: Yes Review of Systems - Review of Systems Constitutional: denies: Chills, Fever EENT: No symptoms reported Cardiovascular: No symptoms reported Respiratory: No symptoms reported Gastrointestinal: See HPI Genitourinary: No symptoms reported Female Genitourinary: No symptoms reported Musculoskeletal: No symptoms reported Skin: No symptoms reported Hematologic/Lymphatic: No symptoms reported Neurological/Psychological: No symptoms reported Physical Exam - Vital signs Vitals: Resp BP Pulse Ox 18 120/84 98 08/15/17 11:34 08/15/17 11:34 08/15/17 11:34 Notes: Physical exam: GENERAL: A 1-year-old female, alert and oriented 3, appears dehydrated HEAD: Atraumatic, normocephalic. EYES: Pupils equal round and reactive to light, extraocular movements intact, sclera anicteric, conjunctiva are normal. ENT: TMs normal, nares patent, oropharynx clear without exudates. Dry mucous membranes. NECK: Normal range of motion, supple without obvious mass or JVD. LUNGS: Breath sounds clear to auscultation bilaterally and equal. No wheezes rales or rhonchi. HEART: Regular rate and rhythm without murmurs, rubs or gallops. ABDOMEN: Soft, normoactive bowel sounds. No tenderness to palpation. No guarding, no rebound. No masses appreciated. EXTREMITIES: Normal range of motion, no pitting or edema. No clubbing or cyanosis. NEUROLOGICAL: Cranial nerves II through XII grossly intact. Normal speech, moving all extremities. PSYCH: Normal mood, normal affect. SKIN: Warm, Dry, normal turgor, no rashes or lesions noted. Course - Re-evaluation Re-evalutation: 08/15/17 13:37 The patient is given 20 cc/kg of IV fluids. Her potassium is 4.9. She has been started on an insulin drip. The plan will be admitted to the hospitalist. - Vital Signs Vital signs: Temp Pulse Resp BP Pulse Ox 98.1 F 110 H 18 117/64 97 08/15/17 16:09 08/15/17 16:40 08/15/17 16:09 08/15/17 16:09 08/15/17 16:09 - Laboratory Result Diagrams: 08/15/17 12:25 08/15/17 18:03 Laboratory results interpreted by me: 08/15/17 08/15/17 08/15/17 12:25 12:25 12:25 Hgb 15.9 H Hct 48.5 H MCV 99 H Plt Count 149 L Seg Neutrophils % 86.4 H Lymphocytes % 8.8 L VBG pH 7.13 L* VBG HCO3 14.4 L Carbon Dioxide 8 L* Anion Gap 36 H Glucose 589 H* Calcium 10.4 H AST 37 H Total Protein 8.9 H Albumin 5.4 H Urine Glucose (UA) Urine Ketones 08/15/17 12:31 Hgb Hct MCV Plt Count Seg Neutrophils % Lymphocytes % VBG pH VBG HCO3 Carbon Dioxide Anion Gap Glucose Calcium AST Total Protein Albumin Urine Glucose (UA) >=500 H Urine Ketones 80 H Critical Care Note - Critical Care Note Total time excluding time spent on procedures (mins): 60 Discharge - Discharge Clinical Impression: DKA Condition: Serious Disposition: ADMITTED INPATIENT Admitting Provider: Hospitalist - Dr Zepeda Unit Admitted: [facility]
[2017-08-15 12:34] LABS: VENOUS BLOOD BASE EXCESS -14.6 mmol/L; VENOUS BLOOD HCO3 14.4 mmol/L (20-32); VENOUS BLOOD PCO2 44.8 mmHg (35-63)
[2017-08-15 12:36] LABS: VENOUS BLOOD PH 7.13 (7.30-7.42)
[2017-08-15 12:38] LABS: ABSOLUTE BASOPHILS # (AUTO) 0.1 10^3/uL (0.0-0.2); ABSOLUTE LYMPHOCYTES (AUTO) 0.8 10^3/uL (0.5-4.7); ABSOLUTE MONOCYTES (AUTO) 0.4 10^3/uL (0.1-1.4); ABSOLUTE NEUT (AUTO) 8.1 10^3/uL (1.7-8.2); BASOPHILS % (AUTO) 0.6 % (0-2); EOSINOPHILS % (AUTO) 0.1 % (0-6); HEMATOCRIT 48.5 % (36.0-47.0); HEMOGLOBIN 15.9 g/dL (12.0-15.5); HGB HCT DIFFERENCE -0.8; LYMPHOCYTES % (AUTO) 8.8 % (13-45); MEAN CORPUSCULAR HEMOGLOBIN 32.4 pg (27.0-33.4); MEAN CORPUSCULAR HGB CONC 32.8 g/dL (32.0-36.0); MEAN CORPUSCULAR VOLUME 99 fl (80-97); MONOCYTES % (AUTO) 4.1 % (3-13); RED BLOOD COUNT 4.91 10^6/uL (3.72-5.28); RED CELL DISTRIBUTION WIDTH 13.6 % (11.5-14.0); SEGMENTED NEUTROPHILS % (AUTO) 86.4 % (42-78); WHITE BLOOD COUNT 9.3 10^3/uL (4.0-10.5)
[2017-08-15 12:48] LABS: APPEARANCE,URINE CLEAR; BILIRUBIN,URINE NEGATIVE (NEGATIVE); GLUCOSE, URINE >=500 mg/dL (NEGATIVE); KETONES,URINE 80 mg/dL (NEGATIVE); LEUKOCYTE ESTERASE,URINE NEGATIVE (NEGATIVE); NITRITE,URINE NEGATIVE (NEGATIVE); PROTEIN,URINE NEGATIVE (NEGATIVE); URINE SPECIFIC GRAVITY 1.026; UROBILINOGEN,URINE NEGATIVE mg/dL (<2.0)
[2017-08-15 12:51] LABS: ALANINE AMINOTRANSFERASE 48 U/L (9-52); ALBUMIN 5.4 g/dL (3.5-5.0); ALKALINE PHOSPHATASE 116 U/L (38-126); ASPARTATE AMINO TRANSFERASE 37 U/L (14-36); BILIRUBIN,DIRECT 0.4 mg/dL (0.0-0.4); BILIRUBIN,TOTAL 0.5 mg/dL (0.2-1.3); BLOOD UREA NITROGEN 18 mg/dL (7-20); CALCIUM 10.4 mg/dL (8.4-10.2); CHLORIDE 101 mmol/L (98-107); CREATININE RESULT 0.75 mg/dL (0.52-1.25); POTASSIUM 4.9 mmol/L (3.6-5.0); TOTAL PROTEIN 8.9 g/dL (6.3-8.2)
[2017-08-15 13:01] LABS: ANION GAP 36 (5-19); GLUCOSE 589 mg/dL (75-110)
[2017-08-15 13:02] LABS: CARBON DIOXIDE 8 mmol/L (22-30)
[2017-08-15] MEDS ORDERED: NORMAL SALINE 100 ML with INSULIN REGULAR, HUMAN 100 UNIT IV PRN ×2 (13:18)
[2017-08-15] MEDS ORDERED: NORMAL SALINE 1000 ML 1,000 ML IV PRN ×2 (14:42→21:47)
[2017-08-15] MEDS ORDERED: METOCLOPRAMIDE HCL INJ/PF 10 MG/2 ML SDV IV PRN (14:42)
[2017-08-15] MEDS ORDERED: ACETAMINOPHEN 325 MG TABLET PO PRN (14:42)
[2017-08-15] MEDS ORDERED: DEXTROSE 50%-WATER 25 GM/50 ML DISP.SYRIN IV PRN ×2 (14:49)
[2017-08-15] MEDS ORDERED: GLUCAGON,HUMAN RECOMB 1 MG INJ IM PRN (14:49)
[2017-08-15] MEDS ORDERED: DEXTROSE 40% GEL 15 GM TUBE PO PRN ×2 (14:49)
[2017-08-15] MEDS ORDERED: DEXTROSE 5%-1/2 NORMAL SALINE 1,000 ML IV ONE (15:12)
[2017-08-15] MEDS ORDERED: DEXTROSE 5%-NORMAL SALINE 1,000 ML IV PRN (15:17)
[2017-08-15] MEDS ORDERED: POTASSI CL 20 MEQ/D5-1/2NS 1L 1000 ML IV PRN (16:18)
[2017-08-15] MEDS ORDERED: INSULIN, REGULAR 100 UNIT/100 ML NORMAL SALINE IV PRN ×2 (16:18)
--- NOTE | 2017-08-15 16:18 | PDOC H&P ---
History of Present Illness Admission Date/PCP: 08/15/17 13:45 History of Present Illness: RONIT FELIPE is a 21 year old white female with a past medical history of type 1 diabetes mellitus who presents with DKA. The patient states that she began throwing up early this morning. She went out last night with some friends of hers and had a couple of beers and a couple of shots. She states that she has not been sick with any fevers or chills. She denies any diarrhea, chest pain or shortness of breath. She states that she is no longer nauseous and has not thrown up. She recently moved here from [place] about a month ago. She ran out of her insulin as of yesterday. Past Medical History Endocrine Medical History: Reports: Diabetes Mellitus Type 1 Psychiatric Medical History: Reports: Bipolar Disorder, Depression, Post Traumatic Stress Disorder Past Surgical History Past Surgical History: Reports: Herniorrhaphy Social History Information Source: Patient Smoking Status: Never Smoker Frequency of Alcohol Use: None Hx Recreational Drug Use: No Drugs: None Hx Prescription Drug Abuse: No - Advance Directive Resuscitation Status: Do Not Resuscitate Family History Family 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, Other - OPERATIONS ASST malignancy Parental Family History Reviewed: Yes Children Family History Reviewed: NA Sibling(s) Family History Reviewed.: Yes Medication/Allergy Home Medications: Aripiprazole [Abilify 15 mg Tablet] 7.5 mg PO DAILY 08/15/17 Insulin Aspart [Novolog Flexpen] 0 unit SUBCUT .SLD SCALE 08/15/17 Insulin Glargine,Hum.rec.anlog [Lantus Solostar] 15 unit SUBCUT QHS 08/15/17 Topiramate [Topamax 100 Mg Tablet] 200 mg PO Q12 08/15/17 Allergies/Adverse Reactions: latex Allergy (Verified 07/22/17 21:14) Sulfa (Sulfonamide Antibiotics) Allergy (Verified 07/22/17 21:14) Review of Systems Review of Systems: Patient admits to chills. She denies fevers. She has nausea and vomiting but this has subsided. She denies blood in the urine, blood in the stool, coughing up blood or throwing up blood. She has not been around any sick contacts. She denies constipation or diarrhea or abdominal pain. She denies chest pain but reports some occasional shortness of breath. She denies loss of appetite and feels that she has lost weight but cannot quantify how much. Physical Exam Vital Signs: Temp Pulse Resp BP Pulse Ox 23 H 99/60 L 97 08/15/17 14:01 08/15/17 14:01 08/15/17 14:01 GENERAL: This is a well-developed well-nourished thin white female resting in bed currently in no acute distress. HEENT normocephalic atraumatic. Trachea is midline. Moist mucous membranes. Sclera are anicteric. HEART: Tachycardic. No murmurs, rubs or gallops. LUNGS: Clear to auscultation bilaterally with equal rise and fall of the chest. ABDOMEN: Soft, nontender, nondistended with normoactive bowel sounds EXTREMETIES: No clubbing, cyanosis or edema. 2+ peripheral pulses bilaterally. NEURO: Awake, alert and oriented 3. Cranial nerves II through XII are grossly intact. Psych: Disgruntled Assessment & Plan - Diagnosis (1) Diabetic ketoacidosis Qualifiers: Diabetes mellitus type: type 1 Diabetes mellitus complication detail: without coma Qualified Code(s): E10.10 - Type 1 diabetes mellitus with ketoacidosis without coma Is this a current diagnosis for this admission?: Yes Plan: Begin DKA protocol. Every hour Accu-Cheks with every 2 hour BMPs. Continue insulin drip on the floor. Monitor electrolytes. (2) Bipolar 1 disorder Is this a current diagnosis for this admission?: Yes - Time Time Spent: 50 to 70 Minutes
[2017-08-15 16:43] LABS: BLOOD UREA NITROGEN 14 mg/dL (7-20); CALCIUM 9.1 mg/dL (8.4-10.2); CHLORIDE 102 mmol/L (98-107); CREATININE RESULT 0.52 mg/dL (0.52-1.25); GLUCOSE 293 mg/dL (75-110); POTASSIUM 4.4 mmol/L (3.6-5.0); SODIUM 137.1 mmol/L (137-145)
[2017-08-15 16:59] LABS: ANION GAP 15 (5-19)
[2017-08-15 17:02] LABS: CARBON DIOXIDE 20 mmol/L (22-30)
[2017-08-15] MEDS ORDERED: INFLUENZA ADLT QUAD (36MOS+) 2017-18 VAC 0.5 ML SYR IM PRN (17:22)
[2017-08-15 18:24] LABS: ANION GAP 16 (5-19); BLOOD UREA NITROGEN 15 mg/dL (7-20); CARBON DIOXIDE 19 mmol/L (22-30); CHLORIDE 100 mmol/L (98-107); CREATININE RESULT 0.67 mg/dL (0.52-1.25); POTASSIUM 4.6 mmol/L (3.6-5.0); SODIUM 134.8 mmol/L (137-145)
[2017-08-15 18:42] LABS: GLUCOSE 535 mg/dL (75-110)
[2017-08-15 20:52] LABS: ANION GAP 18 (5-19); BLOOD UREA NITROGEN 14 mg/dL (7-20); CALCIUM 9.2 mg/dL (8.4-10.2); CARBON DIOXIDE 16 mmol/L (22-30); CHLORIDE 103 mmol/L (98-107); CREATININE RESULT 0.62 mg/dL (0.52-1.25); GLUCOSE 341 mg/dL (75-110); POTASSIUM 4.3 mmol/L (3.6-5.0); SODIUM 136.9 mmol/L (137-145)
[2017-08-15] MEDS: TOPIRAMATE 100 MG TABLET PO SCH (22:35)
[2017-08-16] MEDS: POTASSI CL 20 MEQ/D5-1/2NS 1L 1,000 ML IV PRN ×2 (00:12→05:19)
[2017-08-16 01:04] LABS: ANION GAP 11 (5-19); BLOOD UREA NITROGEN 13 mg/dL (7-20); CARBON DIOXIDE 21 mmol/L (22-30); CHLORIDE 107 mmol/L (98-107); CREATININE RESULT 0.51 mg/dL (0.52-1.25); GLUCOSE 134 mg/dL (75-110); SODIUM 138.8 mmol/L (137-145)
[2017-08-16 01:23] LABS: POTASSIUM 3.3 mmol/L (3.6-5.0)
[2017-08-16 06:00] LABS: HEMATOCRIT 34.4 % (36.0-47.0); HGB HCT DIFFERENCE 1.6; MEAN CORPUSCULAR HEMOGLOBIN 32.4 pg (27.0-33.4); MEAN CORPUSCULAR HGB CONC 34.9 g/dL (32.0-36.0); RED BLOOD COUNT 3.69 10^6/uL (3.72-5.28); RED CELL DISTRIBUTION WIDTH 13.6 % (11.5-14.0); WHITE BLOOD COUNT 7.1 10^3/uL (4.0-10.5)
[2017-08-16 06:06] LABS: MEAN CORPUSCULAR VOLUME 93 fl (80-97)
[2017-08-16 06:16] LABS: ANION GAP 10 (5-19); BLOOD UREA NITROGEN 11 mg/dL (7-20); CALCIUM 8.5 mg/dL (8.4-10.2); CARBON DIOXIDE 22 mmol/L (22-30); CHLORIDE 108 mmol/L (98-107); CREATININE RESULT 0.55 mg/dL (0.52-1.25); GLUCOSE 133 mg/dL (75-110); POTASSIUM 3.6 mmol/L (3.6-5.0); SODIUM 140.4 mmol/L (137-145)
[2017-08-16] MEDS ORDERED: ARIPIPRAZOLE 7.5 MG PO SCH (10:00)
[2017-08-16] MEDS ORDERED: ARIPIPRAZOLE 5 MG TABLET PO SCH ×2 (10:00→22:00)
[2017-08-16 10:17] LABS: ANION GAP 10 (5-19); BLOOD UREA NITROGEN 8 mg/dL (7-20); CARBON DIOXIDE 18 mmol/L (22-30); CHLORIDE 113 mmol/L (98-107); CREATININE RESULT 0.56 mg/dL (0.52-1.25); GLUCOSE 119 mg/dL (75-110); POTASSIUM 3.3 mmol/L (3.6-5.0); SODIUM 141.4 mmol/L (137-145)
[2017-08-16] MEDS ORDERED: POTASSI CL 20 MEQ/50 ML RIDER 20 MEQ/50 ML RTUPB IV ONE (11:12)
--- NOTE | 2017-08-16 12:35 | PDOC PROGRESS REPORT ---
Subjective Progress Note for:: 08/16/17 Subjective:: There is a follow-up visit for DKA. The patient's gap has closed at this point. Blood sugars are in the 100s. The patient usually takes Lantus 20 in the evening as well as sliding scale insulin throughout the day at meals. She tells me that she will not be able to afford Lantus on discharge and that she can likely afford 70/30. The patient is hungry and would like to eat. Reason For Visit: DKA Physical Exam Vital Signs: Temp Pulse Resp BP Pulse Ox 97.9 F 94 18 107/66 98 08/16/17 12:24 08/16/17 12:24 08/16/17 12:24 08/16/17 12:24 08/16/17 12:24 Intake & Output 08/15/17 08/16/17 08/17/17 06:59 06:59 06:59 Intake Total 4606 Output Total 1200 Balance 3406 Weight 50.3 kg GENERAL: This is a well-developed well-nourished thin white female resting in bed currently in no acute distress. HEENT normocephalic atraumatic. Trachea is midline. Moist mucous membranes. Sclera are anicteric. HEART: Tachycardic. No murmurs, rubs or gallops. LUNGS: Clear to auscultation bilaterally with equal rise and fall of the chest. ABDOMEN: Soft, nontender, nondistended with normoactive bowel sounds EXTREMETIES: No clubbing, cyanosis or edema. 2+ peripheral pulses bilaterally. NEURO: Awake, alert and oriented 3. Cranial nerves II through XII are grossly intact. Psych: Disgruntled Results Laboratory Results: 08/16/17 04:25 08/16/17 09:17 08/15/17 08/15/17 08/15/17 16:15 18:03 20:28 WBC RBC Hgb Hct MCV MCH MCHC RDW Plt Count Sodium 137.1 134.8 L 136.9 L Potassium 4.4 4.6 4.3 Chloride 102 100 103 Carbon Dioxide 20 L D 19 L 16 L Anion Gap 15 16 18 BUN 14 15 14 Creatinine 0.52 0.67 0.62 Est GFR ( Amer) > 60 > 60 > 60 Est GFR (Non-Af Amer) > 60 > 60 > 60 Glucose 293 H 535 H* 341 H Calcium 9.1 9.0 9.2 Magnesium TSH 08/16/17 08/16/17 08/16/17 00:30 04:25 04:25 WBC 7.1 RBC 3.69 L Hgb 12.0 D Hct 34.4 L MCV 93 D MCH 32.4 MCHC 34.9 RDW 13.6 Plt Count 115 L Sodium 138.8 140.4 Potassium 3.3 L D 3.6 Chloride 107 108 H Carbon Dioxide 21 L 22 Anion Gap 11 10 BUN 13 11 Creatinine 0.51 L 0.55 Est GFR ( Amer) > 60 > 60 Est GFR (Non-Af Amer) > 60 > 60 Glucose 134 H 133 H Calcium 9.0 8.5 Magnesium 2.0 TSH 08/16/17 08/16/17 04:25 09:17 WBC RBC Hgb Hct MCV MCH MCHC RDW Plt Count Sodium 141.4 Potassium 3.3 L Chloride 113 H Carbon Dioxide 18 L Anion Gap 10 BUN 8 Creatinine 0.56 Est GFR ( Amer) > 60 Est GFR (Non-Af Amer) > 60 Glucose 119 H Calcium 9.0 Magnesium TSH 0.86 Assessment & Plan - Diagnosis (1) Diabetic ketoacidosis Qualifiers: Diabetes mellitus type: type 1 Diabetes mellitus complication detail: without coma Qualified Code(s): E10.10 - Type 1 diabetes mellitus with ketoacidosis without coma Is this a current diagnosis for this admission?: Yes Plan: Discontinue insulin and discontinue IV fluids. Replace potassium. The patient may have an ADA diet. Monitor blood sugars before meals at bedtime. We will need to decide about what type of insulin for long-acting control to use considering the patient's finances. (2) Bipolar 1 disorder Is this a current diagnosis for this admission?: Yes Plan: Continue Abilify in the evening. The patient states that she does not have her Abilify that her bipolar will get so out of control that she will start to feel as though she would like to kill herself. - Time Time Spent with patient: 15-24 minutes Anticipated discharge: Home Within: within 24 hours
[2017-08-16] MEDS: INSULIN REG, HUMAN 100 UNIT/ML 3 ML VIAL (PYX) SUBCUT PRN ×3 (13:22→22:11)
[2017-08-16] MEDS: TOPIRAMATE 100 MG TABLET PO SCH ×2 (13:30→21:44)
[2017-08-16 15:11] LABS: ANION GAP 14 (5-19); BLOOD UREA NITROGEN 10 mg/dL (7-20); CALCIUM 8.7 mg/dL (8.4-10.2); CARBON DIOXIDE 16 mmol/L (22-30); CHLORIDE 107 mmol/L (98-107); SODIUM 137.3 mmol/L (137-145)
[2017-08-16 15:32] LABS: GLUCOSE 446 mg/dL (75-110); POTASSIUM 5.3 mmol/L (3.6-5.0)
[2017-08-16] MEDS ORDERED: HUM INSULIN NPH/REG INSULIN HM 100 UNIT/1 ML 3 ML SUBCUT SCH (16:00)
[2017-08-17 06:40] LABS: ANION GAP 15 (5-19); BLOOD UREA NITROGEN 17 mg/dL (7-20); CALCIUM 9.6 mg/dL (8.4-10.2); CARBON DIOXIDE 16 mmol/L (22-30); CHLORIDE 104 mmol/L (98-107); CREATININE RESULT 0.65 mg/dL (0.52-1.25); MAGNESIUM 2.1 mg/dL (1.6-2.3)
[2017-08-17] MEDS ORDERED: INSULIN REG, HUMAN 100 UNIT/ML 3 ML VIAL (PYX) IV ONE (06:45)
[2017-08-17 07:08] LABS: GLUCOSE 570 mg/dL (75-110)
[2017-08-17] MEDS: HUM INSULIN NPH/REG INSULIN HM 100 UNIT/1 ML 3 ML SUBCUT SCH ×2 (08:24→16:59)
[2017-08-17] MEDS: TOPIRAMATE 100 MG TABLET PO SCH (09:22)
[2017-08-17] MEDS: INSULIN REG, HUMAN 100 UNIT/ML 3 ML VIAL (PYX) SUBCUT PRN (12:05)
[2017-08-17 12:38] LABS: APPEARANCE,URINE CLOUDY; BILIRUBIN,URINE NEGATIVE (NEGATIVE); GLUCOSE, URINE >=500 mg/dL (NEGATIVE); KETONES,URINE 20 mg/dL (NEGATIVE); LEUKOCYTE ESTERASE,URINE LARGE (NEGATIVE); NITRITE,URINE NEGATIVE (NEGATIVE); PROTEIN,URINE NEGATIVE (NEGATIVE); URINE SPECIFIC GRAVITY 1.029; UROBILINOGEN,URINE NEGATIVE mg/dL (<2.0)
--- NOTE | 2017-08-17 16:23 | PDOC DISCHARGE SUMMARY ---
General - Admit/Disc Date/PCP Admission Date/Primary Care Provider: 08/15/17 13:45 - Discharge Diagnosis (1) Diabetic ketoacidosis Is this a current diagnosis for this admission?: Yes (2) Bipolar 1 disorder Is this a current diagnosis for this admission?: Yes - Additional Information Resuscitation Status: Do Not Resuscitate Prescriptions: Aripiprazole [Abilify 15 mg Tablet] 7.5 mg PO DAILY #30 tablet Hum Insulin NPH/Reg Insulin Hm [Insulin 70-30 (NPH/Reg) 100 unit/mL] 10 unit SUBCUT BIDACBS #100 Topiramate [Topamax 100 mg Tablet] 200 mg PO Q12 #60 tablet Home Medications: Aripiprazole [Abilify 15 mg Tablet] 7.5 mg PO DAILY #30 tablet 08/17/17 Hum Insulin NPH/Reg Insulin Hm [Insulin 70-30 (NPH/Reg) 100 unit/mL] 10 unit SUBCUT BIDACBS #100 08/17/17 Topiramate [Topamax 100 mg Tablet] 200 mg PO Q12 #60 tablet 08/17/17 History of Present Illness History of Present Illness: RONIT FELIPE is a 21 year old white female with a past medical history of type 1 diabetes mellitus who presents with DKA. The patient states that she began throwing up early this morning. She went out last night with some friends of hers and had a couple of beers and a couple of shots. She states that she has not been sick with any fevers or chills. She denies any diarrhea, chest pain or shortness of breath. She states that she is no longer nauseous and has not thrown up. She recently moved here from [place] about a month ago. She ran out of her insulin as of yesterday. Hospital Course Hospital Course: Patient was admitted to the service and started on an insulin drip. Her anion gap closed and she was able to be weaned off the drip. Unfortunately the patient still had high blood sugars at times. Unfortunately we could not start her back on her home Lantus due to financial reasons. So the patient was started on 10 units of 70/30 twice daily. By the end of the day of discharge her blood sugar was down to 290. She was provided a prescription for glucometer , lancets and strips. She was also provided a prescription for her Abilify, insulin 70/30, and topiramate. The patient was [facility]. Patient was very disgruntled while she was here. Most of it was related to wanting to eat and then wanting to be discharged. My concern for this patient is that she will quite easily bounced back due to lack of insulin and noncompliance. I hope that she does well. She was told to return through the emergency room if she has any difficulties. Physical Exam Vital Signs: Temp Pulse Resp BP Pulse Ox 98.3 F 93 17 104/59 L 99 08/17/17 08:16 08/17/17 08:16 08/17/17 08:16 08/17/17 08:16 08/17/17 08:16 Intake & Output 08/16/17 08/17/17 08/18/17 06:59 06:59 06:59 Intake Total 4606 2846 Output Total 1200 Balance 3406 2846 Weight 50.3 kg 48.2 kg GENERAL: This is a well-developed well-nourished thin white female resting in bed currently in no acute distress. HEENT normocephalic atraumatic. Trachea is midline. Moist mucous membranes. Sclera are anicteric. HEART: RRR. No murmurs, rubs or gallops. LUNGS: Clear to auscultation bilaterally with equal rise and fall of the chest. ABDOMEN: Soft, nontender, nondistended with normoactive bowel sounds EXTREMETIES: No clubbing, cyanosis or edema. 2+ peripheral pulses bilaterally. NEURO: Awake, alert and oriented 3. Cranial nerves II through XII are grossly intact. Psych: Disgruntled Results Laboratory Results: 08/17/17 06:18 08/17/17 06:18 08/16/17 08/16/17 08/17/17 09:17 14:39 06:18 WBC Cancelled RBC Cancelled Hgb Cancelled Hct Cancelled MCV Cancelled MCH Cancelled MCHC Cancelled RDW Cancelled Plt Count Cancelled Seg Neutrophils % Cancelled Lymphocytes % Cancelled Monocytes % Cancelled Eosinophils % Cancelled Basophils % Cancelled Absolute Neutrophils Cancelled Absolute Lymphocytes Cancelled Absolute Monocytes Cancelled Absolute Eosinophils Cancelled Absolute Basophils Cancelled Sodium 141.4 137.3 Potassium 3.3 L 5.3 H D Chloride 113 H 107 Carbon Dioxide 18 L 16 L Anion Gap 10 14 BUN 8 10 Creatinine 0.56 0.80 Est GFR ( Amer) > 60 > 60 Est GFR (Non-Af Amer) > 60 > 60 Glucose 119 H 446 H* Calcium 9.0 8.7 Magnesium 08/17/17 06:18 WBC RBC Hgb Hct MCV MCH MCHC RDW Plt Count Seg Neutrophils % Lymphocytes % Monocytes % Eosinophils % Basophils % Absolute Neutrophils Absolute Lymphocytes Absolute Monocytes Absolute Eosinophils Absolute Basophils Sodium 135.0 L Potassium 5.0 Chloride 104 Carbon Dioxide 16 L Anion Gap 15 BUN 17 Creatinine 0.65 Est GFR ( Amer) > 60 Est GFR (Non-Af Amer) > 60 Glucose 570 H* Calcium 9.6 Magnesium 2.1 Qualifiers PATEINT BEING DISCHARGED WITH ANY OF THE FOLLOWING DIAGNOSIS?: No Plan Time Spent: Less than 30 Minutes
[2017-08-17 16:45] VITALS: BP 120/84
== END 2017-08-17 17:00 | disposition home or self-care (01) | DRG 639 ==
LOC: ER 11:16 → EH 13:45 → 3N 15:50
PROVIDERS: ADMIT Hospitalist; ATTEND Hospitalist
PROC: 3E0234Z Introduction of Serum, Toxoid and Vaccine into Muscle, Percutaneous Approach (ICD-10-PCS; principal; 2017-08-17)
DX: E10.10 Type 1 diabetes mellitus with ketoacidosis without coma (principal); T38.3X6A Underdosing of insulin and oral hypoglycemic [antidiabetic] drugs, initial encounter; F43.10 Post-traumatic stress disorder, unspecified; F31.9 Bipolar disorder, unspecified; Z91.120 Patient's intentional underdosing of medication regimen due to financial hardship; Y92.9 Unspecified place or not applicable; Z88.2 Allergy status to sulfonamides; Z91.040 Latex allergy status; Z79.4 Long term (current) use of insulin; Z79.899 Other long term (current) drug therapy; Z23 Encounter for immunization
CPT/HCPCS: 36415; 80048; 80053; 80307; 81001; 81025; 82803; 82962; 83735; 84443; 85025; 85027; 90686; 96360; 99291; J1815; J3480; J3490; J7030

== ENCOUNTER 2017-08-26 23:23 | Emergency (ER) | payer SELFPAY ==
[2017-08-26 23:39] VITALS: BP 123/80
[2017-08-26 23:56] LABS: APPEARANCE,URINE SLIGHTLY-CLOUDY; BILIRUBIN,URINE NEGATIVE (NEGATIVE); COLOR,URINE COLORLESS; GLUCOSE, URINE >=500 mg/dL (NEGATIVE); KETONES,URINE 80 mg/dL (NEGATIVE); LEUKOCYTE ESTERASE,URINE SMALL (NEGATIVE); NITRITE,URINE NEGATIVE (NEGATIVE); PROTEIN,URINE NEGATIVE (NEGATIVE); URINE SPECIFIC GRAVITY 1.018; UROBILINOGEN,URINE NEGATIVE mg/dL (<2.0)
[2017-08-26] MEDS ORDERED: FLUCONAZOLE 100 MG TABLET PO ONE (23:59)
--- NOTE | 2017-08-27 00:07 | ER Document Report ---
HPI - HPI Pain Level: 3 Notes: Patient is a 21-year-old female with a history of type 1 diabetes who presents the ED complaining of urinary burning, urgency, frequency, and an occasional dull ache in her flanks. Patient states that she believes she has a UTI which she gets regularly. Patient states that she also may have a yeast infection as she gets these very repeatedly bc of her diabetes. Patient states that there is a 'whitish' discharge and some irritation. Patient states that she usually gets Diflucan while in the ED because she does not have insurance. Patient states that she has no concern of STD or STI otherwise. Patient states that she does not wish to have a pelvic exam as she is going to be seeing her PCM in about 10 days. Patient states that she is otherwise eating and drinking without any difficulties. She is having normal bowel movements as well. No other concerns or complaints at this time. Denies any other recent illness. Denies any headache, fever, URI, sore throat, chest pain, palpitations, syncope , cough, shortness of breath, wheeze, dyspnea, abdominal pain, nausea/vomiting/ diarrhea, urinary retention, or rash. Pt reports being admitted to the ED about 2 weeks ago for DKA. - ROS Notes: REVIEW OF SYSTEMS: CONSTITUTIONAL : Denies fever, chills, or sweats. Denies recent illness. EENT: Denies eye, ear, throat, or mouth pain or symptoms. Denies nasal or sinus congestion or discharge. Denies throat, tongue, or mouth swelling or difficulty swallowing. CARDIOVASCULAR: Denies chest pain. Denies palpitations or racing or irregular heart beat. RESPIRATORY: Denies cough, cold, or chest congestion. Denies shortness of breath, difficulty breathing, or wheezing. GASTROINTESTINAL: Denies abdominal pain or distention. Denies nausea, vomiting , or diarrhea. Denies blood in vomitus, stools, or per rectum. Denies black, tarry stools. Denies constipation. GENITOURINARY: see hpi FEMALE GENITOURINARY: see hpi MUSCULOSKELETAL: Denies back or neck pain or stiffness. Denies joint pain or swelling. SKIN: Denies rash, lesions or sores. NEUROLOGICAL: Denies dizziness or lightheadedness. Denies headache. ALL OTHER SYSTEMS REVIEWED AND NEGATIVE. 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 Patient has suicidal ideation: No Patient has homicidal ideation: No Endocrine Medical History: Reports: Hx Diabetes Mellitus Type 1 Renal/ Medical History: Denies: Hx Peritoneal Dialysis Psychiatric Medical History: Reports: Hx Anxiety, Hx Bipolar Disorder, Hx Depression, Hx Post Traumatic Stress Disorder Past Surgical History: Reports: Hx Abdominal Surgery - hernia repair, Hx Herniorrhaphy, Hx Inguinal Hernia - Immunizations Immunizations up to date: Yes Hx Diphtheria, Pertussis, Tetanus Vaccination: Yes Vertical Provider Document - CONSTITUTIONAL Agree With Documented VS: Yes Notes: PHYSICAL EXAMINATION: GENERAL: Well-appearing, well-nourished and in no acute distress. A&Ox4 LUNGS: Breath sounds clear to auscultation bilaterally and equal. No wheezes rales or rhonchi. HEART: Regular rate and rhythm without murmurs, rubs, gallops. ABDOMEN: Soft, nontender, nondistended abdomen. No guarding, no rebound. No masses appreciated. Normal bowel sounds present. + CVA tenderness bilaterally. : Pt declined. I did offer a self-swab, but pt also declined as she is "confident it is a yeast infection." Extremities: No cyanosis, clubbing, or edema b/l. Peripheral pulses 2+. Capillary refill less than 3 seconds. NEUROLOGICAL: Cranial nerves grossly intact. Normal speech, normal gait. Normal sensory, motor exams PSYCH: Normal mood, normal affect. SKIN: Warm, Dry, normal turgor, no rashes or lesions noted. - INFECTION CONTROL TRAVEL OUTSIDE OF THE [place] IN LAST 30 DAYS: No - RESPIRATORY O2 Sat by Pulse Oximetry: 97 Course - Re-evaluation Re-evalutation: 08/27/17 00:10 Patient is an afebrile, well-hydrated, 21-year-old female who presents the ED with an UTI and elevated glucose on accucheck. Pt also had ketones in her urine. See urine dip results, urine cultures pending. Vitals are currently stable. PE is otherwise unremarkable. Urine hCG was negative. CBC, CMP, VBG, EKG, Saline lock, Saline ordered. Per protocol, lab work ordered to further investigate. Currently, patient repeatedly has said that she will not be admitted to the hospital. 08/27/17 00:41 Pt care being transferred to the main-side with Dr. Infante. - Vital Signs Vital signs: Temp Pulse Resp BP Pulse Ox 98.3 F 111 H 16 123/80 97 08/26/17 23:37 08/26/17 23:37 08/26/17 23:37 08/26/17 23:37 08/26/17 23:37 - Laboratory Result Diagrams: 08/27/17 00:35 08/27/17 00:35 Laboratory results interpreted by me: 08/26/17 23:40 Urine Glucose (UA) >=500 H Urine Ketones 80 H Urine Blood SMALL H Ur Leukocyte Esterase SMALL H Discharge - Discharge Clinical Impression: Hyperglycemia, Type 1 diabetes, Urinary tract infection, Dehydration Condition: Fair Disposition: HOME, SELF-CARE Additional Instructions: You need to followup urgently with your primary care doctor as your blood sugars were dangerously high today. You did not have any evidence of a dangerous condition associated with these blood sugars at this time. However, it is very important that you get your blood sugars under control. Please take all of your medications exactly as directed. You should avoid foods that are high in carbohydrates and sugary foods Please return to emergency department immediately if you develop weakness, persistent vomiting, confusion, or any other symptoms that are concerning to you. Your urine shows findings consistent with a urinary tract infection. Please take all the antibiotics as directed even if your symptoms have improved. Please follow-up with your primary care physician as needed. Return to emergency room if you develop fever >101F, persistent vomiting, become lethargic , have severe pain in your sides, or any other symptoms that are concerning to you. Prescriptions: Cephalexin Monohydrate [Keflex 500 mg Capsule] 500 mg PO Q6H 5 Days capsule
[2017-08-27] MEDS ORDERED: NORMAL SALINE 1000 ML 1,000 ML IV ONE ×2 (00:23→01:51)
[2017-08-27 00:56] LABS: VENOUS BLOOD BASE EXCESS -10.5 mmol/L; VENOUS BLOOD PCO2 28.2 mmHg (35-63); VENOUS BLOOD PH 7.32 (7.30-7.42)
[2017-08-27 00:57] LABS: ABSOLUTE LYMPHOCYTES (AUTO) 1.2 10^3/uL (0.5-4.7); ABSOLUTE MONOCYTES (AUTO) 0.5 10^3/uL (0.1-1.4); EOSINOPHILS % (AUTO) 0.1 % (0-6); LYMPHOCYTES % (AUTO) 18.2 % (13-45); TOTAL CELLS COUNTED % (AUTO) 100 %; WHITE BLOOD COUNT 6.7 10^3/uL (4.0-10.5)
[2017-08-27 01:02] LABS: BASOPHILS % (AUTO) 0.6 % (0-2); HEMATOCRIT 43.1 % (36.0-47.0); HEMOGLOBIN 14.2 g/dL (12.0-15.5); MEAN CORPUSCULAR HEMOGLOBIN 32.1 pg (27.0-33.4); MEAN CORPUSCULAR HGB CONC 32.9 g/dL (32.0-36.0); MEAN CORPUSCULAR VOLUME 98 fl (80-97); PLATELET COUNT 151 10^3/uL (150-450); RED BLOOD COUNT 4.42 10^6/uL (3.72-5.28); RED CELL DISTRIBUTION WIDTH 13.5 % (11.5-14.0); SEGMENTED NEUTROPHILS % (AUTO) 74.1 % (42-78)
[2017-08-27 01:14] LABS: ALANINE AMINOTRANSFERASE 32 U/L (9-52); ALBUMIN 4.9 g/dL (3.5-5.0); ALKALINE PHOSPHATASE 120 U/L (38-126); ASPARTATE AMINO TRANSFERASE 29 U/L (14-36); BILIRUBIN,DIRECT 0.3 mg/dL (0.0-0.4); BILIRUBIN,TOTAL 0.6 mg/dL (0.2-1.3); BLOOD UREA NITROGEN 11 mg/dL (7-20); CALCIUM 10.5 mg/dL (8.4-10.2); CARBON DIOXIDE 13 mmol/L (22-30); CHLORIDE 90 mmol/L (98-107); POTASSIUM 4.6 mmol/L (3.6-5.0); SODIUM 129.6 mmol/L (137-145)
[2017-08-27] MEDS ORDERED: CEFTRIAXONE 1 GM/D5W RTU 1 GM/50 ML RTUPB IV ONE (01:31)
[2017-08-27 01:48] LABS: GLUCOSE 649 mg/dL (75-110)
[2017-08-27] MEDS ORDERED: INSULIN REG, HUMAN 100 UNIT/ML 3 ML VIAL (PYX) IV ONE (02:09)
[2017-08-27 02:10] LABS: ANION GAP 27 (5-19)
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
--- NOTE | 2017-08-28 12:16 | EKG REPORT ---
SEVERITY:- OTHERWISE NORMAL ECG - SINUS RHYTHM VENTRICULAR PREMATURE COMPLEX ST ELEV, PROBABLE NORMAL EARLY REPOL PATTERN : Confirmed by: Cyndy Hauser MD 28-Aug-2017 12:15:42
== END 2017-08-27 02:58 | disposition left against medical advice (07) ==
LOC: ER 23:23
DX: N30.00 Acute cystitis without hematuria (principal); E10.65 Type 1 diabetes mellitus with hyperglycemia; E86.0 Dehydration; R10.2 Pelvic and perineal pain; R30.0 Dysuria; R10.9 Unspecified abdominal pain; Z79.4 Long term (current) use of insulin
CPT/HCPCS: 93005; 99283; 96361; 96365; 36415; 87086; 82962; 85025; 81025; 87088; 80053; 81001; 87186; 82803; 93010; J1815; J7030; J0696

== ENCOUNTER 2017-09-01 17:00 | Inpatient (IN) | payer OTHER ==
[2017-09-01] MEDS ORDERED: NORMAL SALINE 1000 ML 2,000 ML IV ONE (18:11)
--- NOTE | 2017-09-01 18:12 | ER Document Report ---
ED Medical Screen (RME) - General Chief Complaint: High Blood Sugar Stated Complaint: BLOOD SUGAR ISSUE Time Seen by Provider: 09/01/17 18:10 Notes: Patient is a type I diabetic who is supposed to be on NovoLog and 70/30. She states she cannot afford NovoLog so she only takes her 70/30. However she states this is not controlling her blood sugars and they have been over 600 today. She also has pain when she urinates. TRAVEL OUTSIDE OF THE [place] IN LAST 30 DAYS: No - Related Data Allergies/Adverse Reactions: latex Allergy (Verified 09/01/17 17:03) Sulfa (Sulfonamide Antibiotics) Allergy (Verified 09/01/17 17:03) Past Medical History - Social History Chew tobacco use (# tins/day): No Frequency of alcohol use: Occasional Drug Abuse: None Endocrine Medical History: Reports: Hx Diabetes Mellitus Type 1 Renal/ Medical History: Denies: Hx Peritoneal Dialysis Psychiatric Medical History: Reports: Hx Anxiety, Hx Bipolar Disorder, Hx Depression, Hx Post Traumatic Stress Disorder Past Surgical History: Reports: Hx Abdominal Surgery - double hernia repair, Hx Herniorrhaphy, Hx Inguinal Hernia - Immunizations Immunizations up to date: Yes Hx Diphtheria, Pertussis, Tetanus Vaccination: Yes History of Influenza Vaccine for 05/2017 - 10/2017 Season: No Physical Exam - Vital signs Vitals: Temp Pulse Resp BP Pulse Ox 97.9 F 116 H 20 126/76 H 99 09/01/17 17:17 09/01/17 17:17 09/01/17 17:17 09/01/17 17:17 09/01/17 17:17 Course - Vital Signs Vital signs: Temp Pulse Resp BP Pulse Ox 97.9 F 116 H 20 126/76 H 99 09/01/17 17:17 09/01/17 17:17 09/01/17 17:52 09/01/17 17:17 09/01/17 17:17
[2017-09-01 18:48] LABS: ABSOLUTE BASOPHILS # (AUTO) 0.1 10^3/uL (0.0-0.2); ABSOLUTE MONOCYTES (AUTO) 0.4 10^3/uL (0.1-1.4); ABSOLUTE NEUT (AUTO) 4.8 10^3/uL (1.7-8.2); BASOPHILS % (AUTO) 0.8 % (0-2); EOSINOPHILS % (AUTO) 0.6 % (0-6); HEMATOCRIT 44.1 % (36.0-47.0); HEMOGLOBIN 14.5 g/dL (12.0-15.5); LYMPHOCYTES % (AUTO) 26.7 % (13-45); MEAN CORPUSCULAR VOLUME 97 fl (80-97); MONOCYTES % (AUTO) 6.1 % (3-13); PLATELET COUNT 200 10^3/uL (150-450); RED BLOOD COUNT 4.55 10^6/uL (3.72-5.28); RED CELL DISTRIBUTION WIDTH 13.3 % (11.5-14.0); SEGMENTED NEUTROPHILS % (AUTO) 65.8 % (42-78); TOTAL CELLS COUNTED % (AUTO) 100 %; WHITE BLOOD COUNT 7.4 10^3/uL (4.0-10.5)
[2017-09-01 19:02] LABS: ALANINE AMINOTRANSFERASE 31 U/L (9-52); ALBUMIN 5.1 g/dL (3.5-5.0); ALKALINE PHOSPHATASE 114 U/L (38-126); ASPARTATE AMINO TRANSFERASE 41 U/L (14-36); BILIRUBIN,DIRECT 0.3 mg/dL (0.0-0.4); BILIRUBIN,TOTAL 0.7 mg/dL (0.2-1.3); BLOOD UREA NITROGEN 13 mg/dL (7-20); CALCIUM 10.4 mg/dL (8.4-10.2); TOTAL PROTEIN 8.3 g/dL (6.3-8.2)
[2017-09-01 19:13] LABS: CARBON DIOXIDE 16 mmol/L (22-30); CHLORIDE 91 mmol/L (98-107); POTASSIUM 4.7 mmol/L (3.6-5.0); SODIUM 135.4 mmol/L (137-145)
--- NOTE | 2017-09-01 19:34 | ER Document Report ---
ED General - General Chief Complaint: High Blood Sugar Stated Complaint: BLOOD SUGAR ISSUE Time Seen by Provider: 09/01/17 18:10 Notes: 21-year-old female with poorly controlled diabetes, uninsured presents with "I have a UTI" which consists of burning when she pees and frequent urination for 2 days associated with [id number] blood sugars. Minimal abdominal pain no back pain, positive nausea but no vomiting. Denies fevers or chills. Blood sugar at triage was greater than 600. TRAVEL OUTSIDE OF THE [place] IN LAST 30 DAYS: No - Related Data Allergies/Adverse Reactions: latex Allergy (Verified 09/01/17 17:03) Sulfa (Sulfonamide Antibiotics) Allergy (Verified 09/01/17 17:03) Past Medical History - Social History Smoking Status: Current Some Day Smoker Chew tobacco use (# tins/day): No Frequency of alcohol use: Occasional Drug Abuse: None Family 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, Other - [employer] malignancy Patient has suicidal ideation: No Patient has homicidal ideation: No Endocrine Medical History: Reports: Hx Diabetes Mellitus Type 1 Renal/ Medical History: Denies: Hx Peritoneal Dialysis Psychiatric Medical History: Reports: Hx Anxiety, Hx Bipolar Disorder, Hx Depression, Hx Post Traumatic Stress Disorder Past Surgical History: Reports: Hx Abdominal Surgery - double hernia repair, Hx Herniorrhaphy, Hx Inguinal Hernia - Immunizations Immunizations up to date: Yes Hx Diphtheria, Pertussis, Tetanus Vaccination: Yes Review of Systems - Review of Systems Notes: REVIEW OF SYSTEMS GEN: Denies fever, chills, weight loss ENT: Denies sore throat, nasal discharge, ear pain EYES: Denies blurry vision, eye pain, discharge CV: Denies chest pain, palpitations, edema RESP: Denies cough, shortness of breath, wheezing GI: Abdominal pain and nausea MSK: Denies joint pain/swelling, edema, SKIN: Denies rash, skin lesions LYMPH: Denies swollen glands/lymph nodes NEURO: Denies headache, focal weakness or numbness, dizziness PSYCH: Denies depression, suicidal or homicidal ideation PHYSICAL EXAMINATION General: No acute distress, well-nourished Head: Atraumatic, normocephalic ENT: Mouth normal, oropharynx moist, no exudates or tonsillar enlargement Eyes: Conjunctiva normal, pupils equal, lids normal Neck: No JVD, supple, no guarding CVS: Tacky cardiac, regular rhythm, no murmurs Resp: No resp distress, equal and normal breath sounds bilaterally GI: Nondistended, soft, no tenderness to palpation, no rebound or guarding Ext: No deformities, no edema, normal range of motion in upper and lower ext Back: No CVA or midline TTP Skin: No rash, warm Lymphatic: No lymphadeopathy noted Neuro: Awake, alert. Face symmetric. GCS 15. Physical Exam - Vital signs Vitals: Temp Pulse Resp BP Pulse Ox 97.9 F 116 H 20 126/76 H 99 09/01/17 17:17 09/01/17 17:17 09/01/17 17:17 09/01/17 17:17 09/01/17 17:17 Course - Re-evaluation Re-evalutation: 09/01/17 19:34 21-year-old female with diabetes presents with clinical dehydration tachycardia and UTI symptoms. [place] includes cystitis pyelonephritis dehydration diabetic ketoacidosis hyperglycemia and sepsis. Labs were ordered at triage. Patient be given fluids. We will withhold insulin until I see her gap. 09/01/17 20:27 Patient's lab testing shows diabetic ketoacidosis with a high anion gap and high blood sugar. Her potassium is normal. I had a talk with her offered antibiotics and fluids and an insulin drip with admission. She is tearful and wants to leave AGAINST MEDICAL ADVICE. We had a lengthy discussion regarding the risks and benefits of this strategy, we compromised, I offered to treat her for a few hours in the emergency department, recheck her labs and symptoms and then she could leave AMA with antibiotics for UTI. Prescribed ceftriaxone in the ED and insulin drip and will recheck. 09/01/17 20:59 Patient's urinalysis is actually clean which he received Rocephin. She is now decided to stay. I discussed her case with Dr. Boucher who will admit. - Vital Signs Vital signs: Temp Pulse Resp BP Pulse Ox 97.9 F 116 H 20 126/76 H 99 09/01/17 17:17 09/01/17 17:17 09/01/17 17:52 09/01/17 17:17 09/01/17 17:17 - Laboratory Result Diagrams: 09/01/17 18:30 09/01/17 18:30 Laboratory results interpreted by me: 09/01/17 09/01/17 18:30 19:50 Sodium 135.4 L Chloride 91 L Carbon Dioxide 16 L Anion Gap 28 H Glucose 586 H* Calcium 10.4 H AST 41 H Total Protein 8.3 H Albumin 5.1 H Urine Glucose (UA) >=500 H Urine Ketones 80 H Critical Care Note - Critical Care Note Total time excluding time spent on procedures (mins): 40 Comments: The above patient is critically ill. Not including procedures, but including direct re-evaluations, speaking with patient and/or consultants, interpreting results, and documenting, I spent the total amount of minute listed listed above on critical care time Discharge - Discharge Clinical Impression: Diabetic ketoacidosis associated with type 1 diabetes mellitus Qualifiers: Diabetes mellitus complication detail: without coma Qualified Code(s): E10.10 - Type 1 diabetes mellitus with ketoacidosis without coma Condition: Critical Disposition: ADMITTED INPATIENT Admitting Provider: Hospitalist Unit Admitted: [facility]
[2017-09-01 19:37] LABS: ANION GAP 28 (5-19)
[2017-09-01 19:39] LABS: GLUCOSE 586 mg/dL (75-110)
[2017-09-01] MEDS ORDERED: INSULIN REG, HUMAN 100 UNIT/ML 3 ML VIAL (PYX) IV ONE ×2 (19:50→19:51)
[2017-09-01] MEDS ORDERED: CEFTRIAXONE INJ 1000 MG VIAL IV ONE (19:56)
[2017-09-01 20:05] LABS: APPEARANCE,URINE CLEAR; BILIRUBIN,URINE NEGATIVE (NEGATIVE); COLOR,URINE COLORLESS; GLUCOSE, URINE >=500 mg/dL (NEGATIVE); KETONES,URINE 80 mg/dL (NEGATIVE); LEUKOCYTE ESTERASE,URINE NEGATIVE (NEGATIVE); NITRITE,URINE NEGATIVE (NEGATIVE); PROTEIN,URINE NEGATIVE (NEGATIVE); URINE SPECIFIC GRAVITY 1.023; UROBILINOGEN,URINE NEGATIVE mg/dL (<2.0)
[2017-09-01] MEDS: RINGERS SOLUTION,LACTATED 1,000 ML IV PRN ×2 (20:41→20:45)
[2017-09-01] MEDS ORDERED: GLUCAGON,HUMAN RECOMB 1 MG INJ IM PRN (21:50)
[2017-09-01] MEDS ORDERED: ZOLPIDEM TARTRATE 5 MG TABLET PO PRN (21:50)
[2017-09-01] MEDS ORDERED: DEXTROSE 40% GEL 15 GM TUBE PO PRN ×4 (21:50)
[2017-09-01] MEDS ORDERED: ACETAMINOPHEN 325 MG TABLET PO PRN (21:50)
[2017-09-01] MEDS ORDERED: DEXTROSE 50%-WATER 25 GM/50 ML DISP.SYRIN IV PRN ×4 (21:50)
[2017-09-01] MEDS ORDERED: IPRATROPIUM/ALBUTEROL 0.5-2.5 MG/3 ML AMPUL NEB PRN (21:50)
[2017-09-01] MEDS ORDERED: MAG HYDROX/AL HYDROX/SIMETH SUSP 30 ML UDCUP PO PRN (21:50)
[2017-09-01] MEDS ORDERED: GLUCAGON,HUMAN RECOMB 1 MG INJ SUBCUT PRN (21:50)
[2017-09-02 00:17] LABS: URINE AMPHETAMINES SCREEN NEGATIVE; URINE BARBITURATES SCREEN NEGATIVE; URINE BENZODIAZEPINES SCREEN NEGATIVE; URINE COCAINE SCREEN NEGATIVE; URINE MARIJUANA (THC) SCREEN NEGATIVE; URINE METHADONE SCREEN NEGATIVE; URINE PHENCYCLIDINE SCREEN NEGATIVE
[2017-09-02] MEDS: HEPARIN SOD (PORCINE) 5,000 UNIT/ML 1 ML SYRINGE SUBCUT SCH ×4 (00:39→21:58)
[2017-09-02] MEDS: POTASSI CL 20 MEQ/D5-1/2NS 1L 1,000 ML IV PRN ×3 (00:39→20:54)
[2017-09-02 00:52] LABS: ANION GAP 10 (5-19); BLOOD UREA NITROGEN 7 mg/dL (7-20); CALCIUM 8.9 mg/dL (8.4-10.2); CARBON DIOXIDE 25 mmol/L (22-30); CHLORIDE 103 mmol/L (98-107); GLUCOSE 147 mg/dL (75-110); SODIUM 138.4 mmol/L (137-145)
[2017-09-02 01:07] LABS: POTASSIUM 3.2 mmol/L (3.6-5.0)
[2017-09-02] MEDS ORDERED: DEXTROSE 40% GEL 15 GM TUBE PO PRN ×2 (02:52)
[2017-09-02] MEDS ORDERED: GLUCAGON,HUMAN RECOMB 1 MG INJ IM PRN (02:52)
[2017-09-02] MEDS ORDERED: DEXTROSE 50%-WATER 25 GM/50 ML DISP.SYRIN IV PRN ×2 (02:52)
[2017-09-02] MEDS ORDERED: INSULIN LISPRO 100 UNIT/ML 3 ML VIAL SUBCUT PRN (02:52)
[2017-09-02] MEDS ORDERED: POTASSIUM CHLORIDE 10 MEQ TABLET.SA PO ONE (04:05)
--- NOTE | 2017-09-02 04:14 | PDOC H&P ---
History of Present Illness Admission Date/PCP: 09/01/17 21:11 Patient complains of: Abdominal pain and hyperglycemia History of Present Illness: RONIT FELIPE is a 21 year old female with a past medical history of insulin-dependent diabetes from age 7, bipolar depression, tobacco and recurrent AMA discharges. Patient recently relocated to the area and unable to fill prescriptions for insulin and diabetic supplies. Over the last 3 days she has had polyuria polydipsia and uncontrolled hyperglycemia prompting evaluation emergency room. She is found to have uncontrolled hyperglycemia, metabolic acidosis started on IV fluids and insulin then referred to the hospitalist for admission. Patient denies recent illness but admits to noncompliance with insulin regiment secondary to financial barriers. Past Medical History Endocrine Medical History: Reports: Diabetes Mellitus Type 1 Psychiatric Medical History: Reports: Bipolar Disorder, Depression, Post Traumatic Stress Disorder Past Surgical History Past Surgical History: Reports: Herniorrhaphy Social History Information Source[facility] Smoking Status: Current Some Day Smoker Frequency of Alcohol Use: Social Hx Recreational Drug Use: No Drugs: None Hx Prescription Drug Abuse: No - Advance Directive Resuscitation Status: Full Code Family History Family 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, Other - [employer] malignancy Parental Family History Reviewed: Yes Children Family History Reviewed: Yes Sibling(s) Family History Reviewed.: Yes Medication/Allergy Home Medications: Aripiprazole [Abilify 15 mg Tablet] 7.5 mg PO DAILY #30 tablet 08/17/17 Topiramate [Topamax 100 mg Tablet] 200 mg PO Q12 #60 tablet 08/17/17 Hum Insulin NPH/Reg Insulin Hm [Insulin 70-30 (NPH/Reg) 100 unit/mL] See Protocol SUBCUT BIDACBS 09/02/17 Zolpidem Tartrate [Ambien] 10 mg PO QHS 09/02/17 Allergies/Adverse Reactions: latex Allergy (Verified 09/01/17 17:03) Sulfa (Sulfonamide Antibiotics) Allergy (Verified 09/01/17 17:03) Review of Systems Constitutional: ABSENT: chills, fever(s), headache(s), weight gain, weight loss Eyes: ABSENT: visual disturbances Ears: ABSENT: hearing changes Cardiovascular: ABSENT: chest pain, dyspnea on exertion, edema, orthropnea, palpitations Respiratory: ABSENT: cough, hemoptysis Gastrointestinal: ABSENT: abdominal pain, constipation, diarrhea, hematemesis, hematochezia, nausea, vomiting Genitourinary: ABSENT: dysuria, hematuria Musculoskeletal: ABSENT: joint swelling Integumentary: ABSENT: rash, wounds Neurological: ABSENT: abnormal gait, abnormal speech, confusion, dizziness, focal weakness, syncope Psychiatric: ABSENT: anxiety, depression, homidical ideation, suicidal ideation Endocrine: ABSENT: cold intolerance, heat intolerance, polydipsia, polyuria Hematologic/Lymphatic: ABSENT: easy bleeding, easy bruising Physical Exam Vital Signs: Temp Pulse Resp BP Pulse Ox 97.9 F 116 H 19 102/65 96 09/01/17 17:17 09/01/17 17:17 09/02/17 03:01 09/02/17 03:01 09/02/17 03:01 General appearance: PRESENT: cooperative, disheveled, mild distress, thin Head exam: PRESENT: atraumatic, normocephalic Eye exam: PRESENT: conjunctiva pink, EOMI, PERRLA. ABSENT: scleral icterus Ear exam: PRESENT: normal external ear exam Mouth exam: PRESENT: moist, tongue midline Neck exam: ABSENT: carotid bruit, JVD, lymphadenopathy, thyromegaly Respiratory exam: PRESENT: clear to auscultation hui, tachypnea. ABSENT: rales , rhonchi, wheezes Cardiovascular exam: PRESENT: RRR. ABSENT: diastolic murmur, rubs, systolic murmur Pulses: PRESENT: normal dorsalis pedis pul Vascular exam: PRESENT: normal capillary refill GI/Abdominal exam: PRESENT: hyperactive bowel sounds, soft, tenderness Rectal exam: PRESENT: deferred Extremities exam: PRESENT: full ROM. ABSENT: calf tenderness, clubbing, pedal edema Neurological exam: PRESENT: alert, awake, oriented to person, oriented to place , oriented to time, oriented to situation, CN II-XII grossly intact. ABSENT: motor sensory deficit Psychiatric exam: PRESENT: unusual affect Focused psych exam: PRESENT: restlessness Skin exam: PRESENT: dry, intact, warm. ABSENT: cyanosis, rash Results Laboratory Results: 09/02/17 00:30 09/02/17 00:30 Sodium 138.4 Potassium 3.2 L D Chloride 103 Carbon Dioxide 25 Anion Gap 10 BUN 7 Creatinine 0.41 L Est GFR ( Amer) > 60 Est GFR (Non-Af Amer) > 60 Glucose 147 H Calcium 8.9 Assessment & Plan - Diagnosis (1) Diabetic ketoacidosis associated with type 1 diabetes mellitus Qualifiers: Diabetes mellitus complication detail: without coma Qualified Code(s): E10.10 - Type 1 diabetes mellitus with ketoacidosis without coma Is this a current diagnosis for this admission?: Yes Plan: Diabetic ketoacidosis patient has had some degree of polyuria polydipsia with nausea and uncontrolled hyperglycemia with supporting labs. Patient will receive IV fluids IV insulin serial chemistries every 6 hours for evaluation for electrolyte repletion. Continued evaluation for underlying cause if not found Patient will require diabetic education and consideration of mental health evaluation. (2) Bipolar 1 disorder Is this a current diagnosis for this admission?: Yes Plan: Depression Patient denies homicidal or suicidal ideation. I Will evaluate education reconciliation, TSH and obtain urine drug screen, consider SSRI and or mental health consultation. (3) Dehydration Is this a current diagnosis for this admission?: Yes Plan: IV fluid resuscitation follow-up chemistry (4) Tobacco abuse Is this a current diagnosis for this admission?: Yes Plan: Tobacco Dependence patient received tobacco cessation counseling and offered nicotine replacement options - Time Time Spent: 50 to 70 Minutes - Inpatient Certification Medical Necessity: Need Close Monitoring Due to Risk of Patient Decompensation
[2017-09-02 04:58] LABS: ABSOLUTE BASOPHILS # (AUTO) 0.1 10^3/uL (0.0-0.2); ABSOLUTE EOSINOPHILS # (AUTO) 0.1 10^3/uL (0.0-0.6); ABSOLUTE LYMPHOCYTES (AUTO) 2.5 10^3/uL (0.5-4.7); ABSOLUTE MONOCYTES (AUTO) 0.5 10^3/uL (0.1-1.4); ABSOLUTE NEUT (AUTO) 1.8 10^3/uL (1.7-8.2); BASOPHILS % (AUTO) 1.3 % (0-2); EOSINOPHILS % (AUTO) 2.3 % (0-6); HEMATOCRIT 35.4 % (36.0-47.0); LYMPHOCYTES % (AUTO) 49.7 % (13-45); MEAN CORPUSCULAR HEMOGLOBIN 32.2 pg (27.0-33.4); MEAN CORPUSCULAR HGB CONC 34.1 g/dL (32.0-36.0); MEAN CORPUSCULAR VOLUME 94 fl (80-97); MONOCYTES % (AUTO) 9.4 % (3-13); PLATELET COUNT 150 10^3/uL (150-450); RED BLOOD COUNT 3.75 10^6/uL (3.72-5.28); SEGMENTED NEUTROPHILS % (AUTO) 37.3 % (42-78); TOTAL CELLS COUNTED % (AUTO) 100 %; WHITE BLOOD COUNT 4.9 10^3/uL (4.0-10.5)
[2017-09-02 05:00] LABS: HEMOGLOBIN 12.1 g/dL (12.0-15.5)
[2017-09-02 05:11] LABS: ANION GAP 11 (5-19); BLOOD UREA NITROGEN 11 mg/dL (7-20); CALCIUM 9.1 mg/dL (8.4-10.2); CARBON DIOXIDE 25 mmol/L (22-30); CHLORIDE 101 mmol/L (98-107); CHOLESTEROL 205.92 mg/dL (0-200); SODIUM 137.4 mmol/L (137-145); TRIGLYCERIDES 245 mg/dL (<150)
[2017-09-02 05:22] LABS: DIRECT LDL 136 mg/dL (<100)
[2017-09-02] MEDS: HUM INSULIN NPH/REG INSULIN HM 100 UNIT/1 ML 3 ML SUBCUT SCH ×2 (05:37→17:10)
[2017-09-02 05:38] LABS: POTASSIUM 4.4 mmol/L (3.6-5.0)
[2017-09-02 05:40] LABS: GLUCOSE 532 mg/dL (75-110)
[2017-09-02 08:57] LABS: ANION GAP 14 (5-19); BLOOD UREA NITROGEN 12 mg/dL (7-20); CALCIUM 9.3 mg/dL (8.4-10.2); CARBON DIOXIDE 23 mmol/L (22-30); CHLORIDE 100 mmol/L (98-107); GLUCOSE 201 mg/dL (75-110); SODIUM 136.7 mmol/L (137-145)
[2017-09-02] MEDS: ARIPIPRAZOLE 5 MG TABLET PO SCH (09:25)
[2017-09-02] MEDS: TOPIRAMATE 100 MG TABLET PO SCH ×2 (09:25→21:51)
[2017-09-02] MEDS: DOCUSATE SODIUM 100 MG CAPSULE PO SCH ×2 (09:26→18:10)
[2017-09-02] MEDS ORDERED: ARIPIPRAZOLE 7.5 MG PO SCH (10:00)
--- NOTE | 2017-09-02 10:20 | PDOC PROGRESS REPORT ---
Subjective Progress Note for:: 09/02/17 Subjective:: Patient feels well this morning she is hungry No nausea no vomiting no abdominal pain Labs have improved and the gap is closed The insulin drip has been discontinued Reason For Visit: DKA Physical Exam Vital Signs: Temp Pulse Resp BP Pulse Ox 97.9 F 116 H 20 112/79 98 09/01/17 17:17 09/01/17 17:17 09/02/17 06:01 09/02/17 06:01 09/02/17 06:01 General appearance: PRESENT: no acute distress, well-developed, well-nourished Head exam: PRESENT: atraumatic, normocephalic Eye exam: PRESENT: conjunctiva pink, EOMI, PERRLA. ABSENT: scleral icterus Ear exam: PRESENT: normal external ear exam Mouth exam: PRESENT: moist, tongue midline Neck exam: ABSENT: carotid bruit, JVD, lymphadenopathy, thyromegaly Respiratory exam: PRESENT: clear to auscultation hui. ABSENT: rales, rhonchi, wheezes Cardiovascular exam: PRESENT: RRR. ABSENT: diastolic murmur, rubs, systolic murmur Pulses: PRESENT: normal dorsalis pedis pul Vascular exam: PRESENT: normal capillary refill GI/Abdominal exam: PRESENT: normal bowel sounds, soft. ABSENT: distended, guarding, mass, organolmegaly, rebound, tenderness Rectal exam: PRESENT: deferred Extremities exam: PRESENT: full ROM. ABSENT: calf tenderness, clubbing, pedal edema Neurological exam: PRESENT: alert, awake, oriented to person, oriented to place , oriented to time, oriented to situation, CN II-XII grossly intact. ABSENT: motor sensory deficit Psychiatric exam: PRESENT: appropriate affect, normal mood. ABSENT: homicidal ideation, suicidal ideation Skin exam: PRESENT: dry, intact, warm. ABSENT: cyanosis, rash Results Laboratory Results: 09/02/17 04:45 09/02/17 08:25 09/02/17 09/02/17 09/02/17 00:30 04:45 04:45 WBC 4.9 RBC 3.75 Hgb 12.1 D Hct 35.4 L MCV 94 MCH 32.2 MCHC 34.1 RDW 13.0 Plt Count 150 Seg Neutrophils % 37.3 L Lymphocytes % 49.7 H Monocytes % 9.4 Eosinophils % 2.3 Basophils % 1.3 Absolute Neutrophils 1.8 Absolute Lymphocytes 2.5 Absolute Monocytes 0.5 Absolute Eosinophils 0.1 Absolute Basophils 0.1 Sodium 138.4 137.4 Potassium 3.2 L D 4.4 D Chloride 103 101 Carbon Dioxide 25 25 Anion Gap 10 11 BUN 7 11 Creatinine 0.41 L 0.68 Est GFR ( Amer) > 60 > 60 Est GFR (Non-Af Amer) > 60 > 60 Glucose 147 H 532 H* Calcium 8.9 9.1 Triglycerides 245 H Cholesterol 205.92 H LDL Cholesterol Direct 136 H VLDL Cholesterol 49.0 H HDL Cholesterol 43 09/02/17 08:25 WBC RBC Hgb Hct MCV MCH MCHC RDW Plt Count Seg Neutrophils % Lymphocytes % Monocytes % Eosinophils % Basophils % Absolute Neutrophils Absolute Lymphocytes Absolute Monocytes Absolute Eosinophils Absolute Basophils Sodium 136.7 L Potassium 4.0 Chloride 100 Carbon Dioxide 23 Anion Gap 14 BUN 12 Creatinine 0.55 Est GFR ( Amer) > 60 Est GFR (Non-Af Amer) > 60 Glucose 201 H Calcium 9.3 Triglycerides Cholesterol LDL Cholesterol Direct VLDL Cholesterol HDL Cholesterol Assessment & Plan - Diagnosis (1) Diabetic ketoacidosis associated with type 1 diabetes mellitus Qualifiers: Diabetes mellitus complication detail: without coma Qualified Code(s): E10.10 - Type 1 diabetes mellitus with ketoacidosis without coma Is this a current diagnosis for this admission?: Yes (2) Bipolar 1 disorder Is this a current diagnosis for this admission?: Yes (3) Urinary tract infection Qualifiers: Urinary tract infection type: acute cystitis Hematuria presence: without hematuria Qualified Code(s): N30.00 - Acute cystitis without hematuria Is this a current diagnosis for this admission?: Yes Plan: Patient states that she had a urinary tract infection and it might have triggered the diabetic ketoacidosis urine analysis was normal she has no fever no leukocytosis We will send for urine culture patient to be treated only if the urine is positive Switch patient to insulin 70/30 She will receive 20 units this morning 10 units tonight and 10 every 12 initiate lispro coverage If blood sugars are better controlled ,patient may be discharged later today
[2017-09-02] MEDS ORDERED: HUM INSULIN NPH/REG INSULIN HM 100 UNIT/1 ML 3 ML SUBCUT ONE ×2 (11:00→17:30)
[2017-09-02 12:57] LABS: ANION GAP 15 (5-19); BLOOD UREA NITROGEN 10 mg/dL (7-20); CALCIUM 9.4 mg/dL (8.4-10.2); CARBON DIOXIDE 20 mmol/L (22-30); CHLORIDE 101 mmol/L (98-107); GLUCOSE 371 mg/dL (75-110); POTASSIUM 4.3 mmol/L (3.6-5.0); SODIUM 135.5 mmol/L (137-145)
[2017-09-02] MEDS ORDERED: (PENDING PHARMACY ID) (Zolpidem Tartrate [Ambien] 10 MG) PO SCH (22:00)
[2017-09-02] MEDS ORDERED: ZOLPIDEM TARTRATE 5 MG TABLET PO SCH (22:00)
[2017-09-02] MEDS: INSULIN LISPRO 100 UNIT/ML 3 ML VIAL SUBCUT PRN (22:03)
[2017-09-02 23:51] LABS: ANION GAP 15 (5-19); BLOOD UREA NITROGEN 16 mg/dL (7-20); CALCIUM 9.8 mg/dL (8.4-10.2); CARBON DIOXIDE 16 mmol/L (22-30); CHLORIDE 106 mmol/L (98-107); GLUCOSE 360 mg/dL (75-110); POTASSIUM 4.3 mmol/L (3.6-5.0); SODIUM 136.9 mmol/L (137-145)
[2017-09-03 03:42] LABS: ANION GAP 11 (5-19); BLOOD UREA NITROGEN 14 mg/dL (7-20); CALCIUM 9.8 mg/dL (8.4-10.2); CARBON DIOXIDE 18 mmol/L (22-30); CHLORIDE 112 mmol/L (98-107); GLUCOSE 214 mg/dL (75-110); POTASSIUM 4.4 mmol/L (3.6-5.0); SODIUM 140.8 mmol/L (137-145)
[2017-09-03] MEDS: HEPARIN SOD (PORCINE) 5,000 UNIT/ML 1 ML SYRINGE SUBCUT SCH ×2 (05:47→14:26)
[2017-09-03 08:03] LABS: ANION GAP 12 (5-19); BLOOD UREA NITROGEN 14 mg/dL (7-20); CALCIUM 9.6 mg/dL (8.4-10.2); CARBON DIOXIDE 15 mmol/L (22-30); CHLORIDE 109 mmol/L (98-107); GLUCOSE 347 mg/dL (75-110); POTASSIUM 4.4 mmol/L (3.6-5.0); SODIUM 135.9 mmol/L (137-145)
[2017-09-03] MEDS: INSULIN LISPRO 100 UNIT/ML 3 ML VIAL SUBCUT PRN ×2 (10:08→12:49)
[2017-09-03] MEDS: TOPIRAMATE 100 MG TABLET PO SCH (10:08)
[2017-09-03] MEDS: HUM INSULIN NPH/REG INSULIN HM 100 UNIT/1 ML 3 ML SUBCUT SCH (10:08)
[2017-09-03] MEDS: ARIPIPRAZOLE 5 MG TABLET PO SCH (10:09)
[2017-09-03] MEDS: DOCUSATE SODIUM 100 MG CAPSULE PO SCH (10:11)
[2017-09-03 12:45] LABS: BLOOD UREA NITROGEN 14 mg/dL (7-20); CALCIUM 10.4 mg/dL (8.4-10.2); CARBON DIOXIDE 12 mmol/L (22-30); CHLORIDE 104 mmol/L (98-107); POTASSIUM 4.4 mmol/L (3.6-5.0)
[2017-09-03 12:59] LABS: ANION GAP 20 (5-19); SODIUM 136.1 mmol/L (137-145)
[2017-09-03] MEDS ORDERED: HUM INSULIN NPH/REG INSULIN HM 100 UNIT/1 ML 3 ML SUBCUT ONE (13:00)
[2017-09-03 13:03] LABS: GLUCOSE 482 mg/dL (75-110)
--- NOTE | 2017-09-03 16:31 | PDOC DISCHARGE SUMMARY ---
General - Admit/Disc Date/PCP Admission Date/Primary Care Provider: 09/01/17 21:11 Discharge Date: 09/03/17 - Follow-up with the [facility] - Discharge Diagnosis (1) Diabetic ketoacidosis associated with type 1 diabetes mellitus Is this a current diagnosis for this admission?: Yes (2) Bipolar 1 disorder Is this a current diagnosis for this admission?: Yes (3) Hypercholesterolemia Is this a current diagnosis for this admission?: Yes - Additional Information Resuscitation Status: Full Code Discharge Diet: Diabetic Discharge Activity: Activity As Tolerated Prescriptions: Atorvastatin Calcium [Lipitor 20 mg Tablet] 20 mg PO QHS #30 tablet Hum Insulin NPH/Reg Insulin Hm [Insulin 70-30 (NPH/Reg) 100 unit/mL] 20 unit SUBCUT BIDACBS 30 Days #1 bottle Insulin Lispro [Humalog Kwikpen U-200] 0 unit SQ ASDIR PRN #1 insuln.pen PRN Reason: Home Medications: Aripiprazole [Abilify 15 mg Tablet] 7.5 mg PO DAILY #30 tablet 08/17/17 Topiramate [Topamax 100 mg Tablet] 200 mg PO Q12 #60 tablet 08/17/17 Zolpidem Tartrate [Ambien] 10 mg PO QHS 09/02/17 Atorvastatin Calcium [Lipitor 20 mg Tablet] 20 mg PO QHS #30 tablet 09/03/17 Hum Insulin NPH/Reg Insulin Hm [Insulin 70-30 (NPH/Reg) 100 unit/mL] 20 unit SUBCUT BIDACBS 30 Days #1 bottle 09/03/17 Insulin Lispro [Humalog Kwikpen U-200] 0 unit SQ ASDIR PRN #1 insuln.pen History of Present Illness Patient complains of: Abdominal pain hyperglycemia History of Present Illness: RONIT FELIPE is a 21 year old female with a past medical history of insulin-dependent diabetes from age 7, bipolar depression, tobacco and recurrent AMA discharges. Patient recently relocated to the area and unable to fill prescriptions for insulin and diabetic supplies. Over the last 3 days she has had polyuria polydipsia and uncontrolled hyperglycemia prompting evaluation emergency room. She is found to have uncontrolled hyperglycemia, metabolic acidosis started on IV fluids and insulin then referred to the hospitalist for admission. Patient denies recent illness but admits to noncompliance with insulin regiment secondary to financial barriers. Hospital Course Hospital Course: (1) Diabetic ketoacidosis associated with type 1 diabetes mellitus Qualifiers: Diabetes mellitus complication detail: without coma Qualified Code(s): E10.10 - Type 1 diabetes mellitus with ketoacidosis without coma Is this a current diagnosis for this admission?: Yes patient was admitted with diabetic ketoacidosis Protocol was followed Gap closed within 24 hours ; then patient was placed back on insulin 70/30 and lispro coverage patient cannot afford lispro at home as she has no medical coverage She was referred to the [facility] Dosage of insulin 70/30 was increased as her blood sugars were still running high on the day of discharge We increased it to 20 units twice a day (2) Bipolar 1 disorder Is this a current diagnosis for this admission?: Yes patient did look depressed but she stated she did not want to speak with the psych worker There was no evidence of urinary tract infection; urine analysis was normal; she was she has had no fever or leukocytosis 3 hypercholesterolemia Patient was started on Lipitor Physical Exam Vital Signs: Temp Pulse Resp BP Pulse Ox 98.4 F 109 H 16 121/66 99 09/03/17 11:39 09/03/17 14:00 09/03/17 11:41 09/03/17 11:39 09/03/17 11:41 Intake & Output 09/02/17 09/03/17 09/04/17 00:59 00:59 00:59 Intake Total 1300 Output Total 0 Balance 1300 General appearance: PRESENT: no acute distress, well-developed, well-nourished Head exam: PRESENT: atraumatic, normocephalic Eye exam: PRESENT: conjunctiva pink, EOMI, PERRLA. ABSENT: scleral icterus Ear exam: PRESENT: normal external ear exam Mouth exam: PRESENT: moist, tongue midline Neck exam: ABSENT: carotid bruit, JVD, lymphadenopathy, thyromegaly Respiratory exam: PRESENT: clear to auscultation hui. ABSENT: rales, rhonchi, wheezes Cardiovascular exam: PRESENT: RRR. ABSENT: diastolic murmur, rubs, systolic murmur Pulses: PRESENT: normal dorsalis pedis pul Vascular exam: PRESENT: normal capillary refill GI/Abdominal exam: PRESENT: normal bowel sounds, soft. ABSENT: distended, guarding, mass, organolmegaly, rebound, tenderness Rectal exam: PRESENT: deferred Extremities exam: PRESENT: full ROM. ABSENT: calf tenderness, clubbing, pedal edema Neurological exam: PRESENT: alert, awake, oriented to person, oriented to place , oriented to time, oriented to situation, CN II-XII grossly intact. ABSENT: motor sensory deficit Psychiatric exam: PRESENT: appropriate affect, normal mood. ABSENT: homicidal ideation, suicidal ideation Skin exam: PRESENT: dry, intact, warm. ABSENT: cyanosis, rash Results Laboratory Results: 09/02/17 04:45 09/03/17 11:54 09/02/17 09/03/17 09/03/17 23:25 03:19 07:20 Sodium 136.9 L 140.8 135.9 L Potassium 4.3 4.4 4.4 Chloride 106 112 H 109 H Carbon Dioxide 16 L 18 L 15 L Anion Gap 15 11 12 BUN 16 14 14 Creatinine 0.62 0.55 0.51 L Est GFR ( Amer) > 60 > 60 > 60 Est GFR (Non-Af Amer) > 60 > 60 > 60 Glucose 360 H 214 H 347 H Calcium 9.8 9.8 9.6 09/03/17 11:54 Sodium 136.1 L Potassium 4.4 Chloride 104 Carbon Dioxide 12 L Anion Gap 20 H BUN 14 Creatinine 0.60 Est GFR ( Amer) > 60 Est GFR (Non-Af Amer) > 60 Glucose 482 H* Calcium 10.4 H Plan Discharge Plan: Patient was discharged home with follow-up at the clinic Time Spent: Less than 30 Minutes
[2017-09-03 17:11] VITALS: BP 101/56
== END 2017-09-03 17:44 | disposition home or self-care (01) | DRG 639 ==
LOC: ER 17:00 → EH 21:11 → 3S 09-02 19:35
PROVIDERS: ADMIT Internal Medicine; ATTEND Internal Medicine
DX: E10.10 Type 1 diabetes mellitus with ketoacidosis without coma (principal); F31.9 Bipolar disorder, unspecified; E78.00 Pure hypercholesterolemia, unspecified; F17.200 Nicotine dependence, unspecified, uncomplicated; F43.10 Post-traumatic stress disorder, unspecified; Z79.4 Long term (current) use of insulin; Z88.2 Allergy status to sulfonamides; Z91.040 Latex allergy status
CPT/HCPCS: 36415; 80048; 80053; 80061; 80307; 81001; 81025; 82962; 85025; 96361; 96365; 99285; J0696; J1644; J1815; J3480; J3490; J7030; J7120

== ENCOUNTER 2017-09-08 18:11 | Inpatient (IN) | payer OTHER ==
[2017-09-08] MEDS ORDERED: NORMAL SALINE 1000 ML 1,000 ML IV ONE ×2 (19:37→21:51)
--- NOTE | 2017-09-08 19:40 | ER Document Report ---
ED Medical Screen (RME) - General Chief Complaint: High Blood Sugar Stated Complaint: BLOOD SUGAR PROBLEMS Time Seen by Provider: 09/08/17 19:36 Mode of Arrival: Ambulatory Information source: Patient Notes: Pt is a 21 year old female who presents to the ER today for high blood sugar. She states she checked it this morning and it was HIGH on the meter. She denies any n/v/d. She is a type 1 DM. She was just discharged from the hospital having had DKA a few days ago per pt. TRAVEL OUTSIDE OF THE [place] IN LAST 30 DAYS: No - Related Data Allergies/Adverse Reactions: latex Allergy (Verified 09/08/17 18:12) Sulfa (Sulfonamide Antibiotics) Allergy (Verified 09/08/17 18:12) Past Medical History - General Information source: Patient Endocrine Medical History: Reports: Hx Diabetes Mellitus Type 1 Renal/ Medical History: Denies: Hx Peritoneal Dialysis Psychiatric Medical History: Reports: Hx Anxiety, Hx Bipolar Disorder, Hx Depression, Hx Post Traumatic Stress Disorder Past Surgical History: Reports: Hx Abdominal Surgery - double hernia repair, Hx Herniorrhaphy, Hx Inguinal Hernia - Immunizations Immunizations up to date: Yes Hx Diphtheria, Pertussis, Tetanus Vaccination: Yes History of Influenza Vaccine for 05/2017 - 10/2017 Season: Refused Review of Systems - Review of Systems Hematologic/Lymphatic: See HPI Physical Exam - Vital signs Vitals: Temp Pulse Resp BP Pulse Ox 98.5 F 98 16 114/68 97 09/08/17 18:20 09/08/17 18:20 09/08/17 18:20 09/08/17 18:20 09/08/17 18:20 - Notes Notes: General: well appearing, NAD Course - Vital Signs Vital signs: Temp Pulse Resp BP Pulse Ox 98.5 F 98 16 114/68 97 09/08/17 18:20 09/08/17 18:20 09/08/17 18:20 09/08/17 18:20 09/08/17 18:20
[2017-09-08 20:51] LABS: ABSOLUTE BASOPHILS # (AUTO) 0.1 10^3/uL (0.0-0.2); ABSOLUTE MONOCYTES (AUTO) 0.3 10^3/uL (0.1-1.4); EOSINOPHILS % (AUTO) 0.3 % (0-6); TOTAL CELLS COUNTED % (AUTO) 100 %
[2017-09-08 20:54] LABS: ABSOLUTE LYMPHOCYTES (AUTO) 1.8 10^3/uL (0.5-4.7); ABSOLUTE NEUT (AUTO) 5.3 10^3/uL (1.7-8.2); HEMATOCRIT 44.6 % (36.0-47.0); HEMOGLOBIN 14.5 g/dL (12.0-15.5); LYMPHOCYTES % (AUTO) 24.1 % (13-45); MEAN CORPUSCULAR HEMOGLOBIN 32.2 pg (27.0-33.4); MEAN CORPUSCULAR HGB CONC 32.5 g/dL (32.0-36.0); MONOCYTES % (AUTO) 3.8 % (3-13); PLATELET COUNT 180 10^3/uL (150-450); RED BLOOD COUNT 4.51 10^6/uL (3.72-5.28); RED CELL DISTRIBUTION WIDTH 13.9 % (11.5-14.0); SEGMENTED NEUTROPHILS % (AUTO) 70.8 % (42-78); WHITE BLOOD COUNT 7.5 10^3/uL (4.0-10.5)
[2017-09-08 20:57] LABS: MEAN CORPUSCULAR VOLUME 99 fl (80-97)
[2017-09-08 21:14] LABS: ALANINE AMINOTRANSFERASE 47 U/L (9-52); ALBUMIN 5.5 g/dL (3.5-5.0); ALKALINE PHOSPHATASE 139 U/L (38-126); ASPARTATE AMINO TRANSFERASE 47 U/L (14-36); BILIRUBIN,DIRECT 0.5 mg/dL (0.0-0.4); BILIRUBIN,TOTAL 0.8 mg/dL (0.2-1.3); BLOOD UREA NITROGEN 13 mg/dL (7-20); CALCIUM 10.3 mg/dL (8.4-10.2); CHLORIDE 93 mmol/L (98-107); POTASSIUM 5.1 mmol/L (3.6-5.0); SODIUM 136.2 mmol/L (137-145); TOTAL PROTEIN 8.6 g/dL (6.3-8.2)
[2017-09-08 21:32] LABS: CARBON DIOXIDE 10 mmol/L (22-30); GLUCOSE 698 mg/dL (75-110)
[2017-09-08 22:16] LABS: ANION GAP 33 (5-19)
[2017-09-08 22:45] LABS: VENOUS BLOOD HCO3 10.9 mmol/L (20-32); VENOUS BLOOD PH 7.14 (7.30-7.42)
--- NOTE | 2017-09-08 23:01 | ER Document Report ---
ED Blood Sugar Problem - General Mode of Arrival: Ambulatory Information source: Patient TRAVEL OUTSIDE OF THE [place] IN LAST 30 DAYS: No - HPI Patient complains to provider of: Elevated blood sugar Onset: This evening Associated symptoms: Other - see notes above <CATA FOX - Last Filed: 09/09/17 02:04> <THERESA VELASQUEZ - Last Filed: 09/09/17 03:55> - General Chief Complaint: High Blood Sugar Stated Complaint: BLOOD SUGAR PROBLEMS Time Seen by Provider: 09/08/17 19:36 Notes: 21 year old female with history of diabetes mellitus type I presents to the ED complaining of elevated blood sugar that started earlier today. Patient reports that she was here on 09/01/2017, admitted for DKA, and discharged on 2017. Patient denies vomiting or diarrhea. Patient reports taking her insulin as prescribed, but states that her 'body rejects it' and that it isn't working. Patient has an appointment at the [facility] tomorrow. Patient reports she doesn't have insurance and can't afford an insulin pump. When asked if she would like to talk to a social media community manager regarding finances, the patient refuses and states that she doesn't want to be admitted and would like to leave. 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 malignancy Patient has suicidal ideation: No Patient has homicidal ideation: No Endocrine Medical History: Reports: Hx Diabetes Mellitus Type 1 Renal/ Medical History: Denies: Hx Peritoneal Dialysis Psychiatric Medical History: Reports: Hx Anxiety, Hx Bipolar Disorder, Hx Depression, Hx Post Traumatic Stress Disorder Past Surgical History: Reports: Hx Abdominal Surgery - double hernia repair, Hx Herniorrhaphy, Hx Inguinal Hernia - Immunizations Immunizations up to date: Yes Hx Diphtheria, Pertussis, Tetanus Vaccination: Yes <CATA FOX - Last Filed: 09/09/17 02:04> Review of Systems - Review of Systems Constitutional: See HPI, Other - elevated blood glucose level EENT: No symptoms reported Cardiovascular: No symptoms reported Respiratory: No symptoms reported Gastrointestinal: No symptoms reported. denies: Diarrhea, Vomiting Genitourinary: No symptoms reported Female Genitourinary: No symptoms reported Musculoskeletal: No symptoms reported Skin: No symptoms reported Hematologic/Lymphatic: No symptoms reported Neurological/Psychological: No symptoms reported <FOXCATA MARTINEZ - Last Filed: 09/09/17 02:04> Physical Exam - Vital signs Interpretation: Tachycardic, Tachypneic - General General appearance: Alert, Other - uncooperative In distress: None - HEENT Head: Normocephalic, Atraumatic Eyes: Normal Extraocular movements intact: Yes Pupils: PERRL Mucous membranes: Dry - Respiratory Respiratory status: Tachypnea Breath sounds: Normal - Cardiovascular Rhythm: Regular, Tachycardia Heart sounds: Normal auscultation - Abdominal Inspection: Normal - Back Back: Normal - Extremities General upper extremity: Normal inspection, Normal ROM General lower extremity: Normal inspection, Normal ROM - Neurological Neuro grossly intact: Yes Cognition: Normal Orientation: AAOx4 [place] Coma Scale Eye Opening: Spontaneous [place] Coma Scale Verbal: Oriented [place] Coma Scale Motor: Obeys Commands [place] Coma Scale Total: 15 Speech: Normal - Psychological Associated symptoms: Tearful, Uncooperative - Skin Skin Temperature: Warm Skin Moisture: Dry Skin Color: Normal <CATA FOX - Last Filed: 09/09/17 02:04> - Vital signs Vitals: Temp Pulse Resp BP Pulse Ox 98.5 F 98 16 114/68 97 09/08/17 18:20 09/08/17 18:20 09/08/17 18:20 09/08/17 18:20 09/08/17 18:20 Course - Laboratory Result Diagrams: 09/08/17 20:32 09/08/17 20:32 <CATA FOX - Last Filed: 09/09/17 02:04> - Laboratory Result Diagrams: 09/08/17 20:32 09/08/17 20:32 <THERESA VELASQUEZ - Last Filed: 09/09/17 03:55> - Re-evaluation Re-evalutation: 09/08/17 Patient is a 21-year-old female who is a noncompliant diabetic who presents with high blood sugar. Patient denies any nausea vomiting or diarrhea. Patient states that she has been using her insulin at home but it does not work for her. Patient has a glucose of over 600 and is found to be in DKA. Patient has been fluid resuscitated and started on insulin drip. Patient initially stated that she did not want to stay in the hospital and she did not want an IV any placement in her neck. Patient was informed that an IV would preferably be placed in her arm. She was told that if she goes home and her blood sugar continues to go up she could go into a coma and . Patient is agreeable to staying in the hospital and has been discussed with the hospitalist service. Stable at time of admission to the ICU. (THERESA VELASQUEZ) - Vital Signs Vital signs: Temp Pulse Resp BP Pulse Ox 98.3 F 98 21 H 123/81 100 09/09/17 03:35 09/08/17 18:20 09/09/17 03:00 09/09/17 00:00 09/09/17 03:00 - Laboratory Laboratory results interpreted by me: 09/08/17 09/08/17 09/08/17 20:32 20:32 22:36 MCV 99 H D VBG pH 7.14 L* VBG pCO2 33.0 L VBG HCO3 10.9 L Sodium 136.2 L Potassium 5.1 H Chloride 93 L Carbon Dioxide 10 L* Anion Gap 33 H Glucose 698 H* Calcium 10.3 H Direct Bilirubin 0.5 H AST 47 H Alkaline Phosphatase 139 H Total Protein 8.6 H Albumin 5.5 H Urine Glucose (UA) Urine Ketones Ur Leukocyte Esterase 09/08/17 22:50 MCV VBG pH VBG pCO2 VBG HCO3 Sodium Potassium Chloride Carbon Dioxide Anion Gap Glucose Calcium Direct Bilirubin AST Alkaline Phosphatase Total Protein Albumin Urine Glucose (UA) >=500 H Urine Ketones 80 H Ur Leukocyte Esterase TRACE H Critical Care Note - Critical Care Note Total time excluding time spent on procedures (mins): 45 - Evaluation and management of hyperglycemia, DKA, multiple re-evaluations, coordination of admission, counseling of patient <THERESA VELASQUEZ - Last Filed: 09/09/17 03:55> Discharge <CATA FOX - Last Filed: 09/09/17 02:04> - Discharge Admitting Provider: Hospitalist Unit Admitted: ICU - [place] <THERESA VELASQUEZ - Last Filed: 09/09/17 03:55> - Discharge Clinical Impression: Diabetic ketoacidosis associated with type 1 diabetes mellitus Qualifiers: Diabetes mellitus complication detail: without coma Qualified Code(s): E10.10 - Type 1 diabetes mellitus with ketoacidosis without coma Condition: Stable Disposition: ADMITTED INPATIENT Scribe Attestation: 09/09/17 03:55 I personally performed the services described in the documentation, reviewed and edited the documentation which was dictated to the scribe in my presence, and it accurately records my words and actions. (THERESA VELASQUEZ) Scribe Documentation - Scribe Written by Scribe:: Eric Blackwood, 09/08/2017 [id number] acting as scribe for :: Rula <CATA FOX - Last Filed: 09/09/17 02:04>
[2017-09-08 23:14] LABS: APPEARANCE,URINE CLEAR; BILIRUBIN,URINE NEGATIVE (NEGATIVE); COLOR,URINE STRAW; GLUCOSE, URINE >=500 mg/dL (NEGATIVE); KETONES,URINE 80 mg/dL (NEGATIVE); LEUKOCYTE ESTERASE,URINE TRACE (NEGATIVE); NITRITE,URINE NEGATIVE (NEGATIVE); PROTEIN,URINE NEGATIVE (NEGATIVE); URINE SPECIFIC GRAVITY 1.027; UROBILINOGEN,URINE NEGATIVE mg/dL (<2.0)
[2017-09-09] MEDS ORDERED: DEXTROSE 50%-WATER 25 GM/50 ML DISP.SYRIN IV PRN ×6 (00:05→15:34)
[2017-09-09] MEDS ORDERED: KETOROLAC TROMETHAMINE INJ/PF 30 MG/1 ML SDV IV ONE (00:05)
[2017-09-09] MEDS ORDERED: DEXTROSE 40% GEL 15 GM TUBE PO PRN ×6 (00:05→15:48)
[2017-09-09] MEDS ORDERED: GLUCAGON,HUMAN RECOMB 1 MG INJ IM PRN ×2 (00:05→15:34)
[2017-09-09] MEDS ORDERED: NORMAL SALINE 100 ML with INSULIN REGULAR, HUMAN 100 UNIT IV PRN ×4 (00:05→00:19)
[2017-09-09] MEDS ORDERED: ONDANSETRON HCL INJ/PF 4 MG/2 ML SDV IV PRN ×2 (00:16→09:00)
[2017-09-09] MEDS ORDERED: NORMAL SALINE 1000 ML 1,000 ML IV PRN (00:16)
[2017-09-09] MEDS ORDERED: ACETAMINOPHEN 325 MG TABLET PO PRN (00:16)
[2017-09-09] MEDS ORDERED: GLUCAGON,HUMAN RECOMB 1 MG INJ SUBCUT PRN (00:16)
[2017-09-09] MEDS ORDERED: INSULIN REG, HUMAN 100 UNIT/ML 3 ML VIAL (PYX) ONE (00:57)
[2017-09-09] MEDS ORDERED: NORMAL SALINE 1000 ML 2,000 ML IV ONE (00:59)
[2017-09-09] MEDS ORDERED: IBUPROFEN 600 MG TABLET PO PRN (00:59)
[2017-09-09 03:43] LABS: BLOOD UREA NITROGEN 11 mg/dL (7-20); GLUCOSE 369 mg/dL (75-110); POTASSIUM 4.9 mmol/L (3.6-5.0)
[2017-09-09 03:54] LABS: CHLORIDE 111 mmol/L (98-107); SODIUM 145.1 mmol/L (137-145)
[2017-09-09 04:00] LABS: CARBON DIOXIDE < 5 mmol/L (22-30)
[2017-09-09] MEDS ORDERED: SODIUM BICARBONATE 8.4% INJ 50 MEQ/50 ML DISP.SYRIN IV ONE (05:22)
[2017-09-09 07:59] LABS: BLOOD UREA NITROGEN 8 mg/dL (7-20); CHLORIDE 114 mmol/L (98-107); GLUCOSE 129 mg/dL (75-110); SODIUM 139.1 mmol/L (137-145)
[2017-09-09 08:12] LABS: ANION GAP 11 (5-19); CARBON DIOXIDE 14 mmol/L (22-30); POTASSIUM 3.5 mmol/L (3.6-5.0)
[2017-09-09] MEDS ORDERED: POTASSI CL 20 MEQ/D5-1/2NS 1L 1,000 ML IV PRN (08:28)
--- NOTE | 2017-09-09 08:35 | PDOC H&P ---
History of Present Illness Admission Date/PCP: 09/08/17 23:51 [facility] History of Present Illness: RONIT FELIPE is a 21 year old female with history of type 1 diabetes, bipolar 1, PTSD who presents to the emergency department with complaints of blood sugar problems. Patient is found to be in DKA. It is only after much cajoling that she permits the nursing staff to start IVs and give fluids. She had multiple times refuses laboratory. Patient then threatens to leave AGAINST MEDICAL ADVICE if she is not permitted to eat. This patient has had 4 hospitalizations for DKA prior to this since 07/01/17. She reports that 7030 insulin does not "work for my body". Patient has had weekly ER encounters for blood sugar difficulties. Past Medical History Cardiac Medical History: Reports: Hyperlipidema Endocrine Medical History: Reports: Diabetes Mellitus Type 1 Psychiatric Medical History: Reports: Bipolar Disorder, Depression, Post Traumatic Stress Disorder Past Surgical History Past Surgical History: Reports: Herniorrhaphy Social History Smoking Status: Former Smoker Frequency of Alcohol Use: Occasional Hx Recreational Drug Use: No Drugs: None Hx Prescription Drug Abuse: No - Advance Directive Resuscitation Status: Full Code Surrogate healthcare decision maker:: lyle Aguayofriendebra Family History Family 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, Other - FIRE EQUIPMENT INSPECTOR malignancy Parental Family History Reviewed: Yes Children Family History Reviewed: NA Sibling(s) Family History Reviewed.: Unknown Medication/Allergy Allergies/Adverse Reactions: latex Allergy (Verified 09/08/17 18:12) Sulfa (Sulfonamide Antibiotics) Allergy (Verified 09/08/17 18:12) Review of Systems Constitutional: ABSENT: chills, fever(s), headache(s), weight gain, weight loss Eyes: ABSENT: visual disturbances Ears: ABSENT: hearing changes Cardiovascular: ABSENT: chest pain, dyspnea on exertion, edema, orthropnea, palpitations Respiratory: ABSENT: cough, hemoptysis Gastrointestinal: PRESENT: abdominal pain, nausea, vomiting. ABSENT: constipation, diarrhea, hematemesis, hematochezia Genitourinary: ABSENT: dysuria, hematuria Musculoskeletal: ABSENT: joint swelling Integumentary: ABSENT: rash, wounds Neurological: ABSENT: abnormal gait, abnormal speech, confusion, dizziness, focal weakness, syncope Psychiatric: ABSENT: anxiety, depression, homidical ideation, suicidal ideation Endocrine: ABSENT: cold intolerance, heat intolerance, polydipsia, polyuria Hematologic/Lymphatic: ABSENT: easy bleeding, easy bruising Physical Exam Vital Signs: Temp Pulse Resp BP Pulse Ox 98.8 F 98 20 102/50 L 100 09/09/17 07:06 09/08/17 18:20 09/09/17 07:01 09/09/17 07:00 09/09/17 07:01 General appearance: PRESENT: mild distress, thin Head exam: PRESENT: atraumatic, normocephalic Eye exam: PRESENT: conjunctival injection, conjunctiva pink, EOMI, PERRLA. ABSENT: scleral icterus Ear exam: PRESENT: normal external ear exam Mouth exam: PRESENT: dry mucosa, tongue midline Neck exam: ABSENT: JVD, lymphadenopathy, thyromegaly, tracheal deviation Respiratory exam: PRESENT: clear to auscultation hui, tachypnea, unlabored. ABSENT: rales, rhonchi, wheezes Cardiovascular exam: PRESENT: RRR, +S1, +S2, tachycardia. ABSENT: diastolic murmur, rubs, systolic murmur Pulses: PRESENT: normal dorsalis pedis pul Vascular exam: PRESENT: normal capillary refill GI/Abdominal exam: PRESENT: normal bowel sounds, soft. ABSENT: distended, guarding, mass, organolmegaly, rebound, tenderness Rectal exam: PRESENT: deferred Extremities exam: PRESENT: full ROM. ABSENT: calf tenderness, clubbing, pedal edema Neurological exam: PRESENT: alert, awake, oriented to person, oriented to place , oriented to time, oriented to situation, CN II-XII grossly intact. ABSENT: motor sensory deficit Psychiatric exam: PRESENT: other - Blue animated, histrionic. ABSENT: homicidal ideation, suicidal ideation Skin exam: PRESENT: dry, intact, warm. ABSENT: cyanosis, rash Results Laboratory Results: 09/09/17 07:33 09/09/17 09/09/17 03:20 07:33 Sodium 145.1 H 139.1 Potassium 4.9 3.5 L D Chloride 111 H 114 H Carbon Dioxide < 5 L* 14 L Anion Gap Not Reportable 11 BUN 11 8 Creatinine 0.65 0.55 Est GFR ( Amer) > 60 > 60 Est GFR (Non-Af Amer) > 60 > 60 Glucose 369 H 129 H Calcium 9.0 8.0 L Assessment & Plan - Diagnosis (1) Diabetic ketoacidosis associated with type 1 diabetes mellitus Qualifiers: Diabetes mellitus complication detail: without coma Qualified Code(s): E10.10 - Type 1 diabetes mellitus with ketoacidosis without coma Is this a current diagnosis for this admission?: Yes Plan: Place patient on insulin drip Total of 5 L normal saline bolus Run normal saline at 200 mL/h Every hour Accu-Cheks Every 4 hours BMP I would like this patient to be n.p.o. but due to her extreme noncompliance and inability to cooperate with her treatment regimen we will permit her to eat (2) Bipolar 1 disorder Is this a current diagnosis for this admission?: Yes Plan: Continue Abilify (3) Hypercholesterolemia Is this a current diagnosis for this admission?: Yes (4) Noncompliance of patient with dietary regimen Is this a current diagnosis for this admission?: Yes (5) Noncompliance by refusing intervention or support Is this a current diagnosis for this admission?: Yes (6) Noncompliance Is this a current diagnosis for this admission?: Yes - Time Time Spent: 30 to 50 Minutes Medications reviewed and adjusted accordingly: Yes
[2017-09-09] MEDS ORDERED: ENOXAPARIN SODIUM INJ 30 MG/0.3 ML DISP.SYRIN SUBCUT SCH (10:00)
[2017-09-09] MEDS ORDERED: TOPIRAMATE 100 MG TABLET PO SCH ×2 (10:00→22:00)
[2017-09-09] MEDS ORDERED: ARIPIPRAZOLE 5 MG TABLET PO SCH ×2 (10:00→18:00)
[2017-09-09] MEDS ORDERED: FAMOTIDINE INJ/PF 20 MG/2 ML SDV IV SCH (10:00)
[2017-09-09] MEDS ORDERED: (PENDING PHARMACY ID) (Topiramate [Topamax] 200 MG) PO SCH (12:00)
[2017-09-09 12:29] LABS: ANION GAP 13 (5-19); BLOOD UREA NITROGEN 8 mg/dL (7-20); CALCIUM 8.5 mg/dL (8.4-10.2); CARBON DIOXIDE 14 mmol/L (22-30); CHLORIDE 110 mmol/L (98-107); GLUCOSE 366 mg/dL (75-110); POTASSIUM 4.4 mmol/L (3.6-5.0); SODIUM 137.1 mmol/L (137-145)
[2017-09-09] MEDS ORDERED: INSULIN GLARGINE,HUM.REC.ANLOG 1,000 UNIT/10 ML UNIT SUBCUT ONE (13:45)
[2017-09-09 15:28] LABS: ANION GAP 12 (5-19); BLOOD UREA NITROGEN 7 mg/dL (7-20); CALCIUM 8.9 mg/dL (8.4-10.2); CARBON DIOXIDE 17 mmol/L (22-30); CHLORIDE 109 mmol/L (98-107); GLUCOSE 282 mg/dL (75-110); POTASSIUM 4.4 mmol/L (3.6-5.0); SODIUM 137.7 mmol/L (137-145)
[2017-09-09] MEDS ORDERED: INSULIN LISPRO 100 UNIT/ML 3 ML VIAL SUBCUT PRN (15:34)
[2017-09-09 16:53] VITALS: BP 95/63
[2017-09-09] MEDS ORDERED: (PENDING PHARMACY ID) (Aripiprazole [Abilify 15 Mg Tablet] 15 MG) PO SCH (18:00)
--- NOTE | 2017-09-09 19:03 | DISCHARGE SUMMARY E ---
Discharge Summary NAME: RONIT FELIPE : 1995 AGE: 21Y ADMITTED: 09/08/2017 DISCHARGED: 09/09/2017 CODE STATUS: FULL CODE. PRIMARY CARE PROVIDER: [facility]. DISCHARGE DIAGNOSES: Include: 1. Diabetic ketoacidosis secondary to medication noncompliance. 2. Borderline personality disorder. 3. Hyperlipidemia. DISCHARGE MEDICATIONS: Include: 1. I attempted to discharge the patient on a regimen of 70/30 insulin. However, the patient refuses to utilize this, although this is the most cost effective given her lack of medical insurance. The patient states that a formulation of 70/30 does not work with her body. Therefore, the patient is being discharged on Lantus 20 units subcutaneously every evening. The patient is going to be given the Lantus Pen that was used in the hospital. Additionally, a Novolog FlexPen as her sliding scale coverage has been sent to her pharmacy. 4. Topamax 200 mg p.o. q.12 h. 5. Multivitamin 1 tablet p.o. daily. 6. Benadryl 50 mg p.o. q. hour of sleep. 7. Abilify 15 mg p.o. every evening. DIET: Diabetic. ACTIVITY: As tolerated. DIAGNOSTICS: Lab values are as followed: Hematology obtained on 09/08/2017; WBCs are 9.5, hemoglobin is 14.5, hematocrit is 44.6, platelet count is 180,000. Venous blood gas obtained on 09/08/2017: pH of 7.14, pCO2 of 33, bicarbonate is 10. Chemistry obtained on 09/09/2017: Sodium is 137, potassium 4.4, chloride is 109, carbon dioxide is 17, BUN 7, creatinine is 0.71, glucose is 237, calcium is 8.9, bilirubin 0.8, AST 47, ALT is 47, alkaline phosphatase 139, total protein 8.6, albumin 5.5. A urinalysis obtained on 09/08/2017: Color straw, appearance clear, pH is 5.0, specific gravity is 1.027, protein negative, glucose greater than 500, ketones 80, occult blood negative, nitrite negative, bilirubin negative, urobilinogen is negative, leukocyte esterase is trace, WBCs 4, RBCs 2, bacteria trace, epithelial squamous cells less than 1, mucus rare, ascorbic acid is negative, hCG is negative. Microbiology: Urine culture obtained on 09/08/2017 reveals no growth. PHYSICAL EXAMINATION: GENERAL: On examination the patient is well developed, thin, 21-year-old female who is awake, alert and oriented to person, place, time, and situation. She is verbal, conversational, quite confrontational and has tantrums and does not appear to be in acute physiological distress. She does have tantrums. VITAL SIGNS: Temperature is 98.8. Pulse 86. Respirations 19. Blood pressure is 111/62. O2 saturation 100% on room air. SKIN: Warm and dry. No rash. She is not diaphoretic. HEENT: Pupils equal, round, reactive to light and accommodation. Conjunctiva is pink. NECK: No JVP. CARDIOVASCULAR SYSTEM: Heart is regular. There is no murmur or rub. CHEST: Clear, symmetrical, unlabored. ABDOMEN: Soft, nontender, nondistended. BACK: No CVA tenderness, sacral edema. EXTREMITIES: No clubbing, cyanosis, edema. PSYCHIATRIC: The patient is very easily agitated. HISTORY OF PRESENT ILLNESS: The patient is a 21-year-old female with a past medical history of diabetes mellitus type 1 that is well known to the hospitalist service. The patient presents to the emergency department with a chief complaint of blood sugar problems. The patient was found to be in DKA. After much cajoling, the patient permitted nursing staff to start an IV and give fluids. The patient refused multiple times to have labs and initially threatened to leave against medical advice if she was not permitted to eat during her hospitalization. The patient has had 4 hospitalizations for DKA since June. The patient is uninsured and has been discharged with 70/30 in the past, for which she has been covered in the hospital in the past and has done well with it. However, she says in the outpatient setting 70/30 "does not work" with her body. The patient has had weekly ER encounters for blood sugar difficulties. The patient was found to have a gap of 33 and was referred to the hospitalist for admission and management. HOSPITAL COURSE: The patient was admitted to [facility]. The patient was aggressively hydrated, and the patient's CO2 improved from an initial presenting of less than 5 to 17. The patient's blood glucose improved substantially from greater than 550 to 154. The patient's drip was stopped. She was transitioned over to D5-1/2 with 20 of potassium and with continued improvement of her blood sugars. The patient was able to tolerate her meals without issue. The patient's blood pressure remained in acceptable range. She was not noted to be significantly tachypneic nor febrile. The patient refused multiple medical treatments during her stay. Upon my encounter with the patient, she stated that she was going to leave against medical advice as she was ready to go. I explained to the patient the importance of continued monitoring. However, the patient was insistent for discharge. The patient does accept the risks associated with this stating that "you people aren't doing anything for me." I did discuss budgetary options for insulin management given her uninsured state including NPH and 70/30. However, the patient refused these options stating "these insulins don't work with my body." The patient demanded that she be given Lantus and Novolog. The patient was allowed to have her Lantus Pen from the facility; however, we were unable to dispense her any Novolog. The patient stated "I guess my boyfriend will have to pay $600 for my insulin since you will not help me." The patient has been seen by case management. She has been enrolled in [facility] as well as drug programs through the [facility]. However, the patient has missed her appointments at the clinic. The patient does have a re-scheduled appointment with the [facility] and will be discharged. Time spent on this discharge including assessment, plan, physical examination, patient education, and review of records is 45 minutes. DICTATING PHYSICIAN: ZHENG MIR NP [id number] PHY#: [id number] ID: [id number] JOB#: [id number] ACCT: [id number] cc:Radha MATA NP >
[2017-09-09] MEDS ORDERED: INSULIN GLARGINE,HUM.REC.ANLOG 300 UNIT/3 ML INSULN.PEN SUBCUT SCH (22:00)
[2017-09-09] MEDS ORDERED: ATORVASTATIN CALCIUM 20 MG TABLET PO SCH (22:00)
== END 2017-09-09 17:15 | disposition home or self-care (01) | DRG 639 ==
LOC: ER 18:11 → EH 23:51
PROVIDERS: ADMIT Family Medicine; ATTEND Family Medicine
DX: E10.10 Type 1 diabetes mellitus with ketoacidosis without coma (principal); Z79.4 Long term (current) use of insulin; F43.10 Post-traumatic stress disorder, unspecified; F31.9 Bipolar disorder, unspecified; E78.5 Hyperlipidemia, unspecified; F60.3 Borderline personality disorder; Z87.891 Personal history of nicotine dependence; Z91.040 Latex allergy status; Z88.2 Allergy status to sulfonamides; Z91.19 Patient's noncompliance with other medical treatment and regimen; Z59.7 Insufficient social insurance and welfare support; Z53.29 Procedure and treatment not carried out because of patient's decision for other reasons
CPT/HCPCS: 36415; 80048; 80053; 81001; 81025; 82803; 82962; 83735; 85025; 87086; 96360; 99291; J1815; J1885; J2405; J3490; J7030; S0028

== ENCOUNTER 2017-10-29 19:41 | Emergency (ER) | payer OTHER ==
--- NOTE | 2017-10-29 20:14 | ER Document Report ---
HPI - HPI Patient complains to provider of: pain with sex since august Onset: Other - august Pain Level: 3 Context: 22 yo with painful sex since august. No discharge. Denies . Thinks she might have STD. Associated Symptoms: None Exacerbated by: Denies Relieved by: Denies Similar symptoms previously: No Recently seen / treated by doctor: No - ROS ROS below otherwise negative: Yes Systems Reviewed and Negative: Yes All other systems reviewed and negative - REPRODUCTIVE Reproductive: DENIES: : Past Medical History - General Information source: Patient - Social History Smoking Status: Unknown if Ever Smoked Frequency of alcohol use: None Drug Abuse: None Lives with: Spouse/Significant other Family 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, Other - CHICKEN TENDER malignancy - Past Medical History Cardiac Medical History: Reports: Hx Hypercholesterolemia Endocrine Medical History: Reports: Hx Diabetes Mellitus Type 1 Renal/ Medical History: Denies: Hx Peritoneal Dialysis Psychiatric Medical History: Reports: Hx Anxiety, Hx Bipolar Disorder, Hx Depression, Hx Post Traumatic Stress Disorder Past Surgical History: Reports: Hx Abdominal Surgery - double hernia repair, Hx Herniorrhaphy, Hx Inguinal Hernia - Immunizations Immunizations up to date: Yes Hx Diphtheria, Pertussis, Tetanus Vaccination: Yes Vertical Provider Document - CONSTITUTIONAL Agree With Documented VS: Yes Exam Limitations: No Limitations General Appearance: No Apparent Distress - INFECTION CONTROL TRAVEL OUTSIDE OF THE [place] IN LAST 30 DAYS: No - HEENT HEENT: Normal ENT Exam - NECK Neck: Supple - RESPIRATORY Respiratory: Breath Sounds Normal, No Respiratory Distress O2 Sat by Pulse Oximetry: 98 - CARDIOVASCULAR Cardiovascular: Regular Rate, Regular Rhythm - GI/ABDOMEN Gastrointestinal: Abdomen Soft, Abdomen Non-Tender, No Organomegaly - MUSCULOSKELETAL/EXTREMETIES Musculoskeletal/Extremeties: MAEW - NEURO Level of Consciousness: Awake, Alert - DERM Integumentary: Warm, Dry, No Rash Course - Vital Signs Vital signs: Temp Pulse Resp BP Pulse Ox 98.6 F 115 H 12 115/77 98 10/29/17 19:50 10/29/17 19:50 10/29/17 19:50 10/29/17 19:50 10/29/17 19:50 Discharge - Discharge Clinical Impression: Dyspareunia Condition: Good Disposition: HOME, SELF-CARE Instructions: Azithromycin ([facility]), [employer] [facility], Pelvic Pain ([facility]), Rocephin ( [facility]) Additional Instructions: Return to the emergency room for increased pain fever vaginal discharge Call me in several hours for the STD culture result [phone] You have been treated with Rocephin for possible gonorrhea, you have been treated for possible chlamydia with azithromycin 1000 mg. You are given Zofran 8 mg for nausea. Forms: Return to Work
[2017-10-29 21:04] LABS: APPEARANCE,URINE CLEAR; BILIRUBIN,URINE NEGATIVE (NEGATIVE); COLOR,URINE COLORLESS; GLUCOSE, URINE >=500 mg/dL (NEGATIVE); KETONES,URINE 20 mg/dL (NEGATIVE); LEUKOCYTE ESTERASE,URINE NEGATIVE (NEGATIVE); NITRITE,URINE NEGATIVE (NEGATIVE); PROTEIN,URINE NEGATIVE (NEGATIVE); URINE SPECIFIC GRAVITY 1.023; UROBILINOGEN,URINE NEGATIVE mg/dL (<2.0)
[2017-10-29 21:36] LABS: EPITHELIALS (WET MOUNT) 3+ EPITHELIALS SEEN; RBCS (WET MOUNT) FEW RBCS SEEN; T.VAGINALIS (WET MOUNT) NO TRICHOMONAS SEEN; WBCS (WET MOUNT) FEW WBCS SEEN; YEAST (WET MOUNT) NO YEAST SEEN
[2017-10-29] MEDS ORDERED: LIDOCAINE 1% INJ-PF (10 MG/ML) 30 ML SDV INFIL ONE (21:45)
[2017-10-29] MEDS ORDERED: AZITHROMYCIN 250 MG TABLET PO ONE (21:45)
[2017-10-29] MEDS ORDERED: ONDANSETRON 4 MG TAB.RAPDIS PO ONE (21:45)
[2017-10-29] MEDS ORDERED: CEFTRIAXONE INJ 250 MG VIAL IM ONE (21:45)
[2017-10-29 22:31] VITALS: BP 131/77
[2017-10-29 22:57] LABS: CHLAM PCR NOT DETECTED (NOT DETECT); GON PCR NOT DETECTED (NOT DETECT)
== END 2017-10-29 22:30 | disposition home or self-care (01) ==
LOC: ER 19:41
DX: N94.10 Unspecified dyspareunia (principal); R10.2 Pelvic and perineal pain
CPT/HCPCS: 99283; 96372; 87086; 87210; 81025; 87088; 81001; 87491; 87591; S0119; J3490; J0696

== ENCOUNTER 2017-11-09 17:11 | Emergency (ER) | payer OTHER ==
[2017-11-09 17:19] VITALS: BP 117/78
[2017-11-09] MEDS ORDERED: ACETAMINOPHEN 325 MG TABLET PO ONE (17:51)
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
[2017-11-09 18:14] LABS: ABSOLUTE BASOPHILS # (AUTO) 0.1 10^3/uL (0.0-0.2); ABSOLUTE EOSINOPHILS # (AUTO) 0.2 10^3/uL (0.0-0.6); ABSOLUTE LYMPHOCYTES (AUTO) 2.3 10^3/uL (0.5-4.7); ABSOLUTE MONOCYTES (AUTO) 0.4 10^3/uL (0.1-1.4); ABSOLUTE NEUT (AUTO) 3.4 10^3/uL (1.7-8.2); BASOPHILS % (AUTO) 0.9 % (0-2); EOSINOPHILS % (AUTO) 3.5 % (0-6); HEMATOCRIT 43.5 % (36.0-47.0); HEMOGLOBIN 14.8 g/dL (12.0-15.5); LYMPHOCYTES % (AUTO) 35.5 % (13-45); MEAN CORPUSCULAR HEMOGLOBIN 32.4 pg (27.0-33.4); MEAN CORPUSCULAR VOLUME 95 fl (80-97); PLATELET COUNT 173 10^3/uL (150-450); RED BLOOD COUNT 4.56 10^6/uL (3.72-5.28); RED CELL DISTRIBUTION WIDTH 12.5 % (11.5-14.0); SEGMENTED NEUTROPHILS % (AUTO) 53.1 % (42-78); TOTAL CELLS COUNTED % (AUTO) 100 %; WHITE BLOOD COUNT 6.3 10^3/uL (4.0-10.5)
[2017-11-09 18:36] LABS: ALANINE AMINOTRANSFERASE 50 U/L (9-52); ALBUMIN 4.6 g/dL (3.5-5.0); ALKALINE PHOSPHATASE 96 U/L (38-126); ANION GAP 12 (5-19); ASPARTATE AMINO TRANSFERASE 42 U/L (14-36); BILIRUBIN,DIRECT 0.5 mg/dL (0.0-0.4); BILIRUBIN,TOTAL 0.5 mg/dL (0.2-1.3); BLOOD UREA NITROGEN 11 mg/dL (7-20); CALCIUM 10.7 mg/dL (8.4-10.2); CARBON DIOXIDE 24 mmol/L (22-30); CHLORIDE 108 mmol/L (98-107); GLUCOSE 60 mg/dL (75-110); SODIUM 143.5 mmol/L (137-145); TOTAL PROTEIN 8.3 g/dL (6.3-8.2)
--- NOTE | 2017-11-09 18:47 | RADIOLOGY REPORT (SQ) ---
EXAM DESCRIPTION: WRIST RIGHT 3 VIEWS COMPLETED DATE/TIME: 11/09/2017 6:26 pm REASON FOR STUDY: pain wrist COMPARISON: None. NUMBER OF VIEWS: Three views. TECHNIQUE: AP, lateral, and oblique radiographic images acquired of the right wrist. LIMITATIONS: None. FINDINGS: MINERALIZATION: Normal. BONES: No acute fracture or dislocation. No worrisome bone lesions. Normal alignment. SOFT TISSUES: No soft tissue swelling. No foreign body. OTHER: No other significant finding. IMPRESSION: NEGATIVE STUDY OF THE RIGHT WRIST. NO RADIOGRAPHIC EVIDENCE OF ACUTE INJURY. TECHNICAL DOCUMENTATION: JOB ID: [id number] [employer]- All Rights Reserved Reading location - IP/workstation name: [email or web address]
== END 2017-11-09 18:48 | disposition left against medical advice (07) ==
LOC: ER 17:11
DX: R51 Headache (principal); R42 Dizziness and giddiness; M79.1 Myalgia; M25.531 Pain in right wrist; E10.649 Type 1 diabetes mellitus with hypoglycemia without coma; E78.00 Pure hypercholesterolemia, unspecified; Z79.4 Long term (current) use of insulin; Z91.040 Latex allergy status; Z88.2 Allergy status to sulfonamides
CPT/HCPCS: 36415; 80053; 84703; 85025; 99281

== ENCOUNTER 2018-05-26 19:46 | Emergency (ER) | payer OTHER ==
--- NOTE | 2018-05-26 21:03 | ER Document Report ---
ED Medical Screen (RME) - General Chief Complaint: Pain With Urination Stated Complaint: BURNING WHEN URINATING/DISCOLORED URINE Time Seen by Provider: 05/26/18 20:59 Notes: 22 year old Type 1 DM presents with dysuria. Stated she also has some vaginal d/ c. Stated it is white in nature and itching. States h/o yeast and took Diflucan 2 weeks ago. Stated also h/o BV. Denies fever, abd pain, vomiting, or nausea. Stated she does have minor lower back pain. EXAM: ABD SNT all 4 quadrants, no CVA tenderness. I have greeted and performed a rapid initial assessment of this patient. A comprehensive ED assessment and evaluation of the patient, analysis of test results and completion of the medical decision making process will be conducted by additional ED providers. TRAVEL OUTSIDE OF THE [place] IN LAST 30 DAYS: No - Related Data Allergies/Adverse Reactions: latex Allergy (Verified 11/09/17 17:14) Sulfa (Sulfonamide Antibiotics) Allergy (Verified 11/09/17 17:14) Past Medical History - Past Medical History Cardiac Medical History: Reports: Hx Hypercholesterolemia Endocrine Medical History: Reports: Hx Diabetes Mellitus Type 1 Renal/ Medical History: Denies: Hx Peritoneal Dialysis Psychiatric Medical History: Reports: Hx Anxiety, Hx Bipolar Disorder, Hx Depression, Hx Post Traumatic Stress Disorder Past Surgical History: Reports: Hx Abdominal Surgery - double hernia repair, Hx Herniorrhaphy, Hx Inguinal Hernia - Immunizations Immunizations up to date: Yes Hx Diphtheria, Pertussis, Tetanus Vaccination: Yes History of Influenza Vaccine for 05/2017 - 10/2017 Season: Refused Physical Exam - Vital signs Vitals: Temp Pulse Resp BP Pulse Ox 98.5 F 95 15 111/69 100 05/26/18 19:50 05/26/18 19:50 05/26/18 19:50 05/26/18 19:50 05/26/18 19:50 Course - Vital Signs Vital signs: Temp Pulse Resp BP Pulse Ox 98.5 F 95 15 111/69 100 05/26/18 19:50 05/26/18 19:50 05/26/18 19:50 05/26/18 19:50 05/26/18 19:50
[2018-05-26 22:03] LABS: APPEARANCE,URINE SLIGHTLY-CLOUDY; BILIRUBIN,URINE NEGATIVE (NEGATIVE); COLOR,URINE YELLOW; GLUCOSE, URINE NEGATIVE (NEGATIVE); KETONES,URINE NEGATIVE (NEGATIVE); LEUKOCYTE ESTERASE,URINE MODERATE (NEGATIVE); NITRITE,URINE NEGATIVE (NEGATIVE); PROTEIN,URINE NEGATIVE (NEGATIVE); URINE SPECIFIC GRAVITY 1.016
--- NOTE | 2018-05-26 22:17 | ER Document Report ---
ED GI/ - General Chief Complaint: Pain With Urination Stated Complaint: BURNING WHEN URINATING/DISCOLORED URINE Time Seen by Provider: 05/26/18 20:59 Mode of Arrival: Ambulatory Information source: Patient Notes: Patient is a 22-year-old female who presents with chief complaint of dysuria and abnormal vaginal discharge. Patient reports that this is been ongoing for several weeks. Patient denies any fever, nausea, vomiting or chills. Patient reports she is a type I diabetic and that she has frequent yeast infections. TRAVEL OUTSIDE OF THE [place] IN LAST 30 DAYS: No - Related Data Allergies/Adverse Reactions: latex Allergy (Verified 11/09/17 17:14) Sulfa (Sulfonamide Antibiotics) Allergy (Verified 11/09/17 17:14) Past Medical History - General Information source: Patient - Social History Smoking Status: Never Smoker Chew tobacco use (# tins/day): No Frequency of alcohol use: None Drug Abuse: None Family 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, Other - CARGOMAN malignancy Patient has suicidal ideation: No Patient has homicidal ideation: No - Past Medical History Cardiac Medical History: Reports: Hx Hypercholesterolemia Endocrine Medical History: Reports: Hx Diabetes Mellitus Type 1 Renal/ Medical History: Denies: Hx Peritoneal Dialysis Psychiatric Medical History: Reports: Hx Anxiety, Hx Bipolar Disorder, Hx Depression, Hx Post Traumatic Stress Disorder Past Surgical History: Reports: Hx Abdominal Surgery - double hernia repair, Hx Herniorrhaphy, Hx Inguinal Hernia - Immunizations Immunizations up to date: Yes Hx Diphtheria, Pertussis, Tetanus Vaccination: Yes Review of Systems - Review of Systems Genitourinary: Dysuria Female Genitourinary: Vaginal discharge -: Yes All other systems reviewed and negative Physical Exam - Vital signs Vitals: Temp Pulse Resp BP Pulse Ox 98.5 F 95 15 111/69 100 05/26/18 19:50 05/26/18 19:50 05/26/18 19:50 05/26/18 19:50 05/26/18 19:50 - Notes Notes: PHYSICAL EXAMINATION: GENERAL: Well-appearing, well-nourished and in no acute distress. HEAD: Atraumatic, normocephalic. EYES: Pupils equal round and reactive to light, extraocular movements intact, conjunctiva are normal. ENT: Nares patent, oropharynx clear without exudates. Moist mucous membranes. NECK: Normal range of motion, supple without lymphadenopathy LUNGS: Breath sounds clear to auscultation bilaterally and equal. No wheezes rales or rhonchi. HEART: Regular rate and rhythm without murmurs ABDOMEN: Soft, nontender, nondistended abdomen. No guarding, no rebound. No masses appreciated. Female : No CVA tenderness. Speculum exam reveals large amount of white discharge. Musculoskeletal: Normal range of motion, no pitting or edema. No cyanosis. NEUROLOGICAL: Cranial nerves grossly intact. Normal speech, normal gait. Normal sensory, motor exams PSYCH: Normal mood, normal affect. SKIN: Warm, Dry, normal turgor, no rashes or lesions noted. Course - Re-evaluation Re-evalutation: 05/26/18 22:17 Yecenia Gonzalez PCT stand-by for pelvic exam. Patient initially had a low glucose out front. Patient reports she took her insulin and did not eat enough dinner. Patient is completely asymptomatic. Patient was given p.o. intake and blood glucose improved. Patient with 3+ bacteria on her wet mount. Patient also has moderate leukocyte esterase on her urinalysis. Patient is diagnosed with both urinary tract infection as well as bacterial vaginosis. Urine will be sent for culture. - Vital Signs Vital signs: Temp Pulse Resp BP Pulse Ox 98.5 F 95 15 111/69 100 05/26/18 19:50 05/26/18 19:50 05/26/18 19:50 05/26/18 19:50 05/26/18 19:50 - Laboratory Laboratory results interpreted by me: 05/26/18 05/26/18 21:10 21:45 POC Glucose 68 L Urine Urobilinogen 2.0 H Ur Leukocyte Esterase MODERATE H Discharge - Discharge Clinical Impression: Bacterial vaginosis, Urinary tract bacterial infections, Hypoglycemia Condition: Stable Disposition: HOME, SELF-CARE Additional Instructions: Vaginosis, Bacterial Your exam shows you have bacterial vaginosis. This condition is due to an overgrowth of bacteria in the vagina. Symptoms may include vaginal itching or pain, a smelly discharge, and sometimes burning with urination. Normally this is not transmitted by sexual contact. Vaginosis can be treated with oral or topical antibiotics. Metronidazole ( Flagyl) pills are usually effective. Topical vaginal creams include Cleocin and Metro-Gel. You should avoid sexual contact until your symptoms are all better. Call the doctor if you develop pelvic pain, fever, or problems with urination, or if you don't improve as expected. URINARY TRACT INFECTION: Your evaluation indicates that you have a urinary tract infection. This is due to germs growing in the bladder. This is a common problem. This infection usually responds quickly to antibiotics. Your antibiotic should be taken exactly as prescribed. Drink plenty of fluids -- three to four quarts a day. Occasionally, a bladder anesthetic will be prescribed to help stop the feeling of urgency until the antibiotic has a chance to clear the infection. This may cause your urine to be dark orange. Certain urine infections require a culture. If the doctor obtained a culture, the results will be back in two days. You should call to see if a change in treatment is needed. A repeat urinalysis after you finish treatment is often recommended. The physician will let you know if further testing is required. Call the doctor if you develop fever, chills, flank pain, inability to urinate, or blood in the urine. Hypoglycemia You have suffered an episode of hypoglycemia (low blood sugar). Typical symptoms of hypoglycemia are shaking, sweating, headache, and confusion. When severe, unconsciousness or seizure may occur. Hypoglycemia occurs when a person taking insulin or diabetes pills has a change in the amount of blood sugar available -- due to exercise, decreased food intake, or alcohol. Should you feel symptoms of hypoglycemia again, immediately take some form of sugar such as sweetened juice. As the reaction subsides, eat a complex carbohydrate such as bread. If possible, check your blood sugar using a chemical strip. If episodes are occurring without obvious explanation, contact your physician for further evaluation. ANTIBIOTIC THERAPY: You have been given an antibiotic prescription. It's important that you take all the medication, unless instructed otherwise by your physician. Failure to complete the entire course can result in relapse of your condition. Common side effects of antibiotics include nausea, intestinal cramping, or diarrhea. Women may develop vaginal yeast infections, and babies can get yeast (thrush) in the mouth following the use of antibiotics. Contact your physician if you develop significant side effects from this medication. Allergy to this antibiotic can result in hives, wheezing, faintness, or itching. If symptoms of allergy occur, stop the medication and call the doctor. Metronidazole Metronidazole (Flagyl) has been prescribed. This medication is used to kill a type of bacteria called anaerobes, and protozoan parasites such as trichomonas and Giardia. Flagyl often causes a metallic taste in the mouth and mild nausea. Do not use alcohol in any form with Flagyl (including alcohol in medication elixirs). Flagyl interacts with alcohol to cause flushing, palpitations, headache, stomach cramps, and vomiting. Do not use Flagyl if you are taking Antabuse (disulfiram). Call the doctor at once if you develop rash, shortness of breath, itching, or lightheadedness. CEPHALEXIN: The antibiotic you've been prescribed is a member of the cephalosporin class. This type of antibiotic covers a wide variety of infections, including those of the skin, lungs, and urinary tract. It's useful for staph infections. This antibiotic is slightly similar to the penicillin family. In rare cases , a person who is allergic to penicillin will also be allergic to this medication. If you have had a severe allergic reaction to penicillin, and have not taken this antibiotic since that time, notify your doctor. Antibiotics which cover many germs ("broad spectrum" antibiotics) are more likely to cause diarrhea or "yeast" infections. Women prone to vaginal yeast problems may suffer an attack after taking this antibiotic. In infants, oral thrush (white spots "stuck" on the cheek) or yeast diaper rash may result. See your doctor if these problems occur. Call at once if you develop itching, hives , shortness of breath, or lightheadedness. FOLLOW-UP CARE: If you have been referred to a physician for follow-up care, call the physician s office for an appointment as you were instructed or within the next two days. If you experience worsening or a significant change in your symptoms, notify the physician immediately or return to the Emergency Department at any time for re-evaluation. Please take medications as prescribed. Absolutely no alcohol intake while taking the Flagyl. Your urine was sent for a culture, we will call you if there are any abnormal results. Please be sure to have adequate oral intake while you are taking insulin so that you do not have episodes of hypoglycemia. Prescriptions: Cephalexin Monohydrate [Keflex 500 mg Capsule] 500 mg PO Q6H 5 Days #20 capsule Metronidazole [Flagyl 500 mg Tablet] 500 mg PO BID #14 tablet Forms: Return to Work Referrals: EZRA ANGUIANO PA-C [Primary Care Provider] - Follow up as needed
[2018-05-26 22:32] LABS: BACTERIA (WET MOUNT) 3+ BACTERIA SEEN; EPITHELIALS (WET MOUNT) 3+ EPITHELIALS SEEN; RBCS (WET MOUNT) FEW RBCS SEEN; T.VAGINALIS (WET MOUNT) NO TRICHOMONAS SEEN; WBCS (WET MOUNT) 4+ WBCS SEEN; YEAST (WET MOUNT) YEAST SEEN
[2018-05-26] MEDS ORDERED: CEPHALEXIN 500 MG CAPSULE PO ONE (23:37)
[2018-05-26] MEDS ORDERED: METRONIDAZOLE 500 MG TABLET PO ONE (23:37)
[2018-05-26 23:38] VITALS: BP 105/66
[2018-05-26 23:56] LABS: CHLAM PCR NOT DETECTED (NOT DETECT); GON PCR NOT DETECTED (NOT DETECT)
== END 2018-05-27 00:05 | disposition home or self-care (01) ==
LOC: ER 19:46
DX: N76.0 Acute vaginitis (principal); N39.0 Urinary tract infection, site not specified; B96.89 Other specified bacterial agents as the cause of diseases classified elsewhere; E10.649 Type 1 diabetes mellitus with hypoglycemia without coma; Z91.040 Latex allergy status; Z88.2 Allergy status to sulfonamides
CPT/HCPCS: 81001; 81025; 82962; 87086; 87210; 87491; 87591; 99283

== ENCOUNTER 2018-06-07 20:04 | Emergency (ER) | payer OTHER ==
[2018-06-07 20:13] VITALS: BP 110/58
[2018-06-07 22:21] LABS: APPEARANCE,URINE HAZY; BILIRUBIN,URINE NEGATIVE (NEGATIVE); COLOR,URINE STRAW; KETONES,URINE 25 mg/dL (NEGATIVE); LEUKOCYTE ESTERASE,URINE LARGE (NEGATIVE); NITRITE,URINE NEGATIVE (NEGATIVE); PROTEIN,URINE NEGATIVE (NEGATIVE); UROBILINOGEN,URINE NEGATIVE mg/dL (<2.0)
[2018-06-07 22:24] LABS: GLUCOSE, URINE >=1000 mg/dL (NEGATIVE)
[2018-06-07] MEDS ORDERED: CEPHALEXIN 500 MG CAPSULE PO ONE (22:41)
--- NOTE | 2018-06-07 22:42 | ER Document Report ---
HPI - HPI Patient complains to provider of: confirmation Onset: This afternoon Pain Level: Denies Context: Patient states she is here because she is requesting a confirmation. Patient reports having 3+ urine test at home. Patient does complain of some urinary frequency. Patient reports her last menstrual period was 2017. Patient denies any abdominal pain or back pain. Associated Symptoms: Other - Her Calos frequency. denies: Fever, Vomiting Exacerbated by: Denies Relieved by: Denies Similar symptoms previously: No Recently seen / treated by doctor: No - ROS ROS below otherwise negative: Yes Systems Reviewed and Negative: Yes All other systems reviewed and negative - CONSTITUTIONAL Constitutional: DENIES: Fever - RESPIRATORY Respiratory: DENIES: Trouble Breathing - GASTROINTESTINAL Gastrointestinal: DENIES: Abdominal Pain - URINARY Urinary: REPORTS: Frequency. DENIES: Dysuria - REPRODUCTIVE Reproductive: REPORTS: : - MUSCULOSKELETAL Musculoskeletal: DENIES: Back Pain - DERM Skin Color: Normal Skin Problems: None Past Medical History - General Information source: Patient - Social History Smoking Status: Never Smoker Frequency of alcohol use: None Drug Abuse: None Occupation: None Lives with: Spouse/Significant other Family 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, Other - ANODE REBUILDER malignancy - Past Medical History Cardiac Medical History: Reports: Hx Hypercholesterolemia Endocrine Medical History: Reports: Hx Diabetes Mellitus Type 1 Renal/ Medical History: Denies: Hx Peritoneal Dialysis Psychiatric Medical History: Reports: Hx Anxiety, Hx Bipolar Disorder, Hx Depression, Hx Post Traumatic Stress Disorder Past Surgical History: Reports: Hx Abdominal Surgery - double hernia repair, Hx Herniorrhaphy, Hx Inguinal Hernia - Immunizations Immunizations up to date: Yes Hx Diphtheria, Pertussis, Tetanus Vaccination: Yes Vertical Provider Document - CONSTITUTIONAL Agree With Documented VS: Yes Exam Limitations: No Limitations General Appearance: WD/WN, No Apparent Distress - INFECTION CONTROL TRAVEL OUTSIDE OF THE [place] IN LAST 30 DAYS: No - HEENT HEENT: Atraumatic, Normocephalic - NECK Neck: Normal Inspection - RESPIRATORY Respiratory: Breath Sounds Normal, No Respiratory Distress - CARDIOVASCULAR Cardiovascular: Regular Rate, Regular Rhythm - GI/ABDOMEN Gastrointestinal: Abdomen Soft, Abdomen Non-Tender, No Organomegaly - BACK Back: Normal Inspection. negative: CVA Tenderness-Right, CVA Tenderness-Left - MUSCULOSKELETAL/EXTREMETIES Musculoskeletal/Extremeties: MAEW - NEURO Level of Consciousness: Awake, Alert, Appropriate Motor/Sensory: No Motor Deficit - DERM Integumentary: Warm, Dry, No Rash Course - Vital Signs Vital signs: Temp Pulse Resp BP Pulse Ox 99.0 F 93 16 110/58 L 100 06/07/18 20:12 06/07/18 20:12 06/07/18 20:12 06/07/18 20:12 06/07/18 20:12 - Laboratory Laboratory results interpreted by me: 06/07/18 21:18 Urine Glucose (UA) >=1000 H Urine Ketones 25 H Ur Leukocyte Esterase LARGE H Urine Ascorbic Acid 20 H Urine HCG, Qual POSITIVE H Discharge - Discharge Clinical Impression: test positive UTI (urinary tract infection) Qualifiers: Urinary tract infection type: site unspecified Hematuria presence: without hematuria Qualified Code(s): N39.0 - Urinary tract infection, site not specified Condition: Stable Disposition: HOME, SELF-CARE Instructions: Cephalexin ([facility]), ([facility]), Urinary Tract Infection ([facility]) Additional Instructions: Return immediately for any new or worsening symptoms Followup with your primary care provider, call tomorrow to make a followup appointment Prescriptions: Cephalexin Monohydrate [Keflex 500 mg Capsule] 500 mg PO Q6H 5 Days capsule Referrals: EZRA ANGUIANO PA-C [Primary Care Provider] - Follow up as needed [facility] [Provider Group] - Follow up as needed
== END 2018-06-07 22:48 | disposition home or self-care (01) ==
LOC: ER 20:04
DX: Z32.01 Encounter for pregnancy test, result positive (principal); N39.0 Urinary tract infection, site not specified; E10.9 Type 1 diabetes mellitus without complications
CPT/HCPCS: 81001; 81025; 87086; 99283

== ENCOUNTER 2018-06-08 22:38 | Emergency (ER) | payer OTHER ==
[2018-06-08 22:45] VITALS: BP 113/73
--- NOTE | 2018-06-08 23:17 | ER Document Report ---
HPI - HPI Patient complains to provider of: check Pain Level: 5 Context: Patient is a 22-year-old female presenting to the emergency department requesting a blood test. Patient states she was to enable 2 days ago with a positive test, states she was here yesterday also with a positive test and diagnosed with a urinary tract infection. States that she was placed on Keflex yesterday for the urinary tract infection and is taking as prescribed. Patient states about a month ago she was here for vaginal discharge treated for bacterial vaginosis. Patient currently states she does not have any vaginal discharge to include blood at this time. Patient is currently denying any abdominal or back pain states she would like a blood test to tell her how far along she is because she is thinking about getting an . 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 - Past Medical History Cardiac Medical History: Reports: Hx Hypercholesterolemia Endocrine Medical History: Reports: Hx Diabetes Mellitus Type 1 Renal/ Medical History: Denies: Hx Peritoneal Dialysis Psychiatric Medical History: Reports: Hx Anxiety, Hx Bipolar Disorder, Hx Depression, Hx Post Traumatic Stress Disorder Past Surgical History: Reports: Hx Abdominal Surgery - double hernia repair, Hx Herniorrhaphy, Hx Inguinal Hernia - Immunizations Immunizations up to date: Yes Hx Diphtheria, Pertussis, Tetanus Vaccination: Yes Vertical Provider Document - CONSTITUTIONAL Notes: GENERAL: Alert, interacts well. No acute distress. HEAD: Normocephalic, atraumatic. EYES: Pupils equal, round, and reactive to light. Extraocular movements intact. ENT: Oral mucosa moist, tongue midline. NECK: Full range of motion. Supple. Trachea midline. LUNGS: Clear to auscultation bilaterally, no wheezes, rales, or rhonchi. No respiratory distress. HEART: Regular rate and rhythm. No murmur ABDOMEN: Soft, non-tender. Non-distended. Bowel sounds present in all 4 quadrants. EXTREMITIES: Moves all 4 extremities spontaneously. No edema, normal radial and dorsalis pedis pulses bilaterally. No cyanosis. BACK: no cervical, thoracic, lumbar midline tenderness. No saddle anesthesia, normal distal neurovascular exam. NEUROLOGICAL: Alert and oriented x3. Normal speech. PSYCH: Normal affect, normal mood. SKIN: Warm, dry, normal turgor. No rashes or lesions noted. - INFECTION CONTROL TRAVEL OUTSIDE OF THE [place] IN LAST 30 DAYS: No Course - Re-evaluation Re-evalutation: Discussed with patient at length that the emergency room is not a place for quantitative hCGs at this point. Without any abdominal pain, vaginal bleeding there is no indication for an ultrasound. Stated she needs to follow-[place] ultrasound. Patient then starts crying stating this is the first time she is and she is unsure what to do. States her friend told her to come to the emergency room. At length conversation with patient about need for follow- up either on these or at [facility]. Patient then voices concerns that the Keflex is not strong enough of an antibiotic for her urinary tract infection. Reviewed micro on urine culture sent yesterday, currently no growth. Discussed with patient she should continue Keflex as prescribed. Return precautions discussed - Vital Signs Vital signs: Temp Pulse Resp BP Pulse Ox 98.0 F 102 H 16 113/73 100 06/08/18 22:42 06/08/18 22:42 06/08/18 22:42 06/08/18 22:42 06/08/18 22:42 Discharge - Discharge Clinical Impression: Urinary tract infection Qualifiers: Urinary tract infection type: acute cystitis Hematuria presence: without hematuria Qualified Code(s): N30.00 - Acute cystitis without hematuria Condition: Stable Disposition: HOME, SELF-CARE Instructions: Urinary Tract Infection ([facility]) Additional Instructions: As we discussed [place] or with [facility] for repeat testing. Also as we discussed you should continue to take the Keflex as prescribed for urinary tract infection. Please return to the emergency room should you have any vaginal bleeding or for any other concerning symptoms. Referrals: EZRA ANGUIANO PA-C [Primary Care Provider] - Follow up as needed
== END 2018-06-08 23:15 | disposition home or self-care (01) ==
LOC: ER 22:38
DX: N30.00 Acute cystitis without hematuria (principal); E10.9 Type 1 diabetes mellitus without complications; Z79.4 Long term (current) use of insulin; E78.00 Pure hypercholesterolemia, unspecified
CPT/HCPCS: 82962; 99283

== ENCOUNTER 2019-09-28 18:28 | Emergency (ER) | payer OTHER ==
[2019-09-28 18:34] VITALS: BP 131/76
[2019-09-28] MEDS ORDERED: LORATADINE 10 MG TABLET PO ONE (20:41)
[2019-09-28] MEDS ORDERED: PSEUDOEPHEDRINE HCL 30 MG TABLET PO ONE (20:41)
[2019-09-28] MEDS ORDERED: IBUPROFEN 600 MG TABLET PO ONE (20:41)
--- NOTE | 2019-09-28 20:42 | ER Document Report ---
ED Respiratory Problem - General Chief Complaint: Cough Stated Complaint: COUGH Time Seen by Provider: 09/28/19 20:38 Primary Care Provider: JOSELITO ARDON DO [Primary Care Provider] - Follow up as needed Mode of Arrival: Ambulatory Information source: Patient Notes: 23-year-old female presented to ED for cough cold congestion sore throat for 2 weeks. She went to the [facility] and they did tell her she had an upper respiratory infection. They did do a strep test which was negative. Her assessment is not consistent with a strep throat. It is consistent with upper respiratory infection with postnasal drip. Patient has been given instructions for Claritin Tylenol salt and soda gargles Flonase and if her throat continues to hurt Chloraseptic spray. Patient has verbalized understanding and agreement with treatment plan and patient was discharged home. TRAVEL OUTSIDE OF THE [place] IN LAST 30 DAYS: No - HPI Patient complains to provider of: Cough Onset: Other - 2 weeks Duration: Intermittent episodes Initiating Event: URI Quality of pain: No pain Severity: None Pain Level: Denies Context: Hx asthma - As a child Cough: Nonproductive Associated symptoms: Congestion, Cough, PND, Runny nose, Sinus pain/pressure, Sore Throat Similar symptoms previously: Yes Recently seen / treated by doctor: No - Related Data Allergies/Adverse Reactions: latex Allergy (Verified 11/09/17 17:14) Sulfa (Sulfonamide Antibiotics) Allergy (Verified 11/09/17 17:14) Past Medical History - General Information source: Patient - Social History Smoking Status: Never Smoker Frequency of alcohol use: None Drug Abuse: None Lives with: Family Family 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, 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 Patient has suicidal ideation: No Patient has homicidal ideation: No - Past Medical History Cardiac Medical History: Reports: Hx Hypercholesterolemia Pulmonary Medical History: Reports: None EENT Medical History: Reports: None Neurological Medical History: Reports: None Endocrine Medical History: Reports: Hx Diabetes Mellitus Type 1 Renal/ Medical History: Reports: None Malignancy Medical History: Reports: None GI Medical History: Reports: None Musculoskeletal Medical History: Reports None Skin Medical History: Reports None Psychiatric Medical History: Reports: Hx Anxiety, Hx Bipolar Disorder, Hx Depression, Hx Post Traumatic Stress Disorder Traumatic Medical History: Reports: None Infectious Medical History: Reports: None Past Surgical History: Reports: Hx Inguinal Hernia - Immunizations Immunizations up to date: Yes Hx Diphtheria, Pertussis, Tetanus Vaccination: Yes Review of Systems - Review of Systems Constitutional: Recent illness EENT: Nose discharge, Sinus pressure Cardiovascular: No symptoms reported Respiratory: Cough Gastrointestinal: No symptoms reported Genitourinary: No symptoms reported Female Genitourinary: No symptoms reported Musculoskeletal: No symptoms reported Skin: No symptoms reported Hematologic/Lymphatic: No symptoms reported Neurological/Psychological: No symptoms reported -: Yes All other systems reviewed and negative Physical Exam - Vital signs Vitals: Temp Pulse Resp BP Pulse Ox 98.0 F 91 16 131/76 H 98 09/28/19 18:33 09/28/19 18:33 09/28/19 18:33 09/28/19 18:33 09/28/19 18:33 Interpretation: Normal - General General appearance: Appears well, Alert - HEENT Head: Normocephalic, Atraumatic Eyes: Normal Pupils: PERRL Ears: Normal External canal: Normal Tympanic membrane: Normal Sinus: Normal Nasal: Purulent discharge, Swelling Mouth/Lips: Normal Mucous membranes: Normal Pharynx: Post nasal drainage Neck: Normal - Respiratory Respiratory status: No respiratory distress Chest status: Nontender Breath sounds: Nonproductive cough Chest palpation: Normal - Cardiovascular Rhythm: Regular Heart sounds: Normal auscultation Murmur: No - Abdominal Inspection: Normal Distension: No distension Bowel sounds: Normal Tenderness: Nontender Organomegaly: No organomegaly - Back Back: Normal, Nontender - Extremities General upper extremity: Normal inspection, Nontender, Normal color, Normal ROM, Normal temperature General lower extremity: Normal inspection, Nontender, Normal color, Normal ROM, Normal temperature, Normal weight bearing. No: Stuart's sign - Neurological Neuro grossly intact: Yes Cognition: Normal Orientation: AAOx4 Shira Coma Scale Eye Opening: Spontaneous Shira Coma Scale Verbal: Oriented Shira Coma Scale Motor: Obeys Commands Trinidad Coma Scale Total: 15 Speech: Normal Motor strength normal: LUE, RUE, LLE, RLE Sensory: Normal - Psychological Associated symptoms: Normal affect, Normal mood - Skin Skin Temperature: Warm Skin Moisture: Dry Skin Color: Normal Course - Re-evaluation Re-evalutation: 09/28/19 20:51 After performing a Medical Screening Examination, I estimate there is LOW risk for ACUTE CORONARY SYNDROME, RESPIRATORY FAILURE, SEPSIS OR MENINGITIS, thus I consider the discharge disposition reasonable. I have reevaluated this patient multiple times and no significant life threatening changes are noted. The patient and I have discussed the diagnosis and risks, and we agree with discharging home with close follow-up. We also discussed returning to the Emergency Department immediately if new or worsening symptoms occur. We have discussed the symptoms which are most concerning (e.g., changing or worsening pain, trouble swallowing or breathing, neck stiffness, fever) that necessitate immediate return. - Vital Signs Vital signs: Temp Pulse Resp BP Pulse Ox 98.0 F 91 16 131/76 H 98 09/28/19 18:33 09/28/19 18:33 09/28/19 18:33 09/28/19 18:33 09/28/19 18:33 Discharge - Discharge Clinical Impression: URI (upper respiratory infection) Qualifiers: URI type: unspecified viral URI Qualified Code(s): J06.9 - Acute upper respiratory infection, unspecified Condition: Stable Disposition: HOME, SELF-CARE Additional Instructions: UPPER RESPIRATORY ILLNESS: You have a viral infection of the respiratory passages -- a "cold." This common infection causes nasal congestion, drainage, and often sore throat and cough. It is highly contagious. The disease usually lasts about 10 to 14 days. There is no "cure" for the viral infection -- it must run its course. If there is a complication, such as bacterial infection in the nose, sinuses, middle ear, or bronchial tubes, antibiotics may be required. The antibiotics won't affect the virus. Drink plenty of fluids. A humidifier may help. An expectorant medication or decongestant may make you more comfortable. Use acetaminophen or ibuprofen for fever or aches. See the doctor if fever persists over two days, if there is any significant worsening of your symptoms, or if you simply fail to improve as expected. You have been recommended treatment with Claritin 10 mg and Mucinex 600 mg. These are all [id number] medications for cough cold congestion. You could also use Flonase which is [id number] 1 spray each nostril twice a day. You could also use salt soda solution gargles. These will help to remove the drainage from the back your throat. Chloraseptic spray was [id number] that will also help with your sore throat. Salt and soda solution gargle 1 quart of water 1 tablespoon of salt 1 teaspoon of baking soda Mixed 3 ingredients together and boil for 1 minute Placed in a covered quart jar Use 1/2 ounce of cold solution to gargle 3 times a day COUGH-SUPPRESSANT & EXPECTORANT MEDICATION: You are to use a cough medication as needed for relief of symptoms. This medicine is a combination of an expectorant (to make the mucous thinner and more easily "coughed up") and a cough suppressant (to reduce the frequency of coughing). The cough-suppressant medicine is related to narcotics. You may experience mild nausea and sleepiness. Some patients who are very sensitive to narcotics may have stomach pain from this medicine. Taking the medicine with food reduces these side effects. Do not drive or work with machinery until you know how this medicine affects you. The expectorant should have no side effects. Iodine-containing expectorants (such as organidin) should not be taken by persons with active thyroid disease unless approved by your doctor. Call the doctor if you develop shortness of breath, hives, rash, itching, lightheadedness, or severe nausea and vomiting. Ibuprofen Ibuprofen is an excellent, safe drug for pain control. In addition, it has potent antiinflammatory effects which are beneficial, especially in the treatment of injuries, arthritis, or tendonitis. It's best to take ibuprofen with food. Persons with ulcer disease or allergy to aspirin should notify their physician of this before taking ibuprofen. Take the medication exactly as prescribed. Don't take additional doses unless instructed to do so by your doctor. If you develop wheezing, shortness of breath, hives, faintness, stomach pain, vomiting, or dark black stools, re turn for re-evaluation at once. FOLLOW-UP CARE: If you have been referred to a physician for follow-up care, call the physicians office for an appointment as you were instructed or within the next two days. If you experience worsening or a significant change in your symptoms, notify the physician immediately or return to the Emergency Department at any time for re-evaluation. Forms: Elevated Blood Pressure Referrals: JOSELITO ARDON DO [Primary Care Provider] - Follow up in 3-5 days
== END 2019-09-28 20:49 | disposition home or self-care (01) ==
LOC: ER 18:28
DX: J06.9 Acute upper respiratory infection, unspecified (principal); R09.81 Nasal congestion; E78.00 Pure hypercholesterolemia, unspecified; E10.9 Type 1 diabetes mellitus without complications; Z88.2 Allergy status to sulfonamides; Z91.040 Latex allergy status
CPT/HCPCS: 99282

== ENCOUNTER 2019-12-14 01:58 | Emergency (ER) | payer OTHER ==
--- NOTE | 2019-12-14 03:41 | ER Document Report ---
ED General - General Chief Complaint: Swollen Glands Stated Complaint: POSSIBLE SWOLLEN LYMPH NODES Time Seen by Provider: 12/14/19 03:27 Primary Care Provider: JOSELITO ARDON DO [Primary Care Provider] - Follow up as needed Notes: Patient is a 24-year-old female with a history of type 1 diabetes that comes emergency department for chief complaint of intermittent swollen lymph nodes. She states currently the lymph nodes in the back of her neck have been swelling, worse on the right side, she also has intermittent ear pain. She states she gets frequent ear infections. 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 She denies any medical history otherwise. She denies recreational drugs, smoking, alcohol. She denies sore throat, headache, vomiting, chest pain, abdominal pain, shortness of breath, cough, recent sick exposures or travel. TRAVEL OUTSIDE OF THE [place] 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 Patient has suicidal ideation: No Patient has homicidal ideation: No - Past Medical History Cardiac Medical History: Reports: Hx Hypercholesterolemia Endocrine Medical History: Reports: Hx Diabetes Mellitus Type 1 Renal/ Medical History: Denies: Hx Peritoneal Dialysis Psychiatric Medical History: Reports: Hx Anxiety, Hx Bipolar Disorder, Hx Depression, Hx Post Traumatic Stress Disorder Past Surgical History: Reports: Hx Abdominal Surgery - double hernia repair, Hx Herniorrhaphy, Hx Inguinal Hernia - Immunizations Immunizations up to date: Yes Hx Diphtheria, Pertussis, Tetanus Vaccination: Yes Review of Systems - Review of Systems Constitutional: See HPI EENT: See HPI Cardiovascular: No symptoms reported Respiratory: No symptoms reported Gastrointestinal: No symptoms reported Genitourinary: No symptoms reported Female Genitourinary: No symptoms reported Musculoskeletal: No symptoms reported Skin: No symptoms reported Hematologic/Lymphatic: See HPI Neurological/Psychological: No symptoms reported Physical Exam - Vital signs Vitals: Temp Pulse Resp BP Pulse Ox 97.8 F 116 H 16 144/85 H 98 12/14/19 02:03 12/14/19 02:03 12/14/19 02:03 12/14/19 02:03 12/14/19 02:03 - Notes Notes: GENERAL: Alert, interacts well. No acute distress. HEAD: Normocephalic, atraumatic. EYES: Pupils equal, round, and reactive to light. Extraocular movements intact. ENT: Oral mucosa moist, tongue midline. Oropharynx unremarkable. Airway patent. Nares patent, sinuses non-tender, ear canals unremarkable. Both tympanic membranes have loss of landmarks and erythema, this is much more significant on the left with noted effusion and some bulging. There is posterior auricular adenopathy, however this is slightly worse on the right, tender. There is no severe adenopathy or nontender adenopathy. Mastoids are normal. Unremarkable otherwise. NECK: Full range of motion. Supple. Trachea midline. No anterior cervical adenopathy. LUNGS: Clear to auscultation bilaterally, no wheezes, rales, or rhonchi. No respiratory distress. Non-tender chest wall. HEART: Borderline tachycardia, normal rhythm, no murmur ABDOMEN: Soft, non-tender. Non-distended. EXTREMITIES: Moves all 4 extremities spontaneously. No edema, normal radial and dorsalis pedis pulses bilaterally. No cyanosis. BACK: no cervical, thoracic, lumbar midline tenderness. No saddle anesthesia, normal distal neurovascular exam. Moves all extremities in full range of motion. NEUROLOGICAL: Alert and oriented x3. Normal speech. Cranial nerves II through XII grossly intact. Strength 5/5 in all extremities. PSYCH: Normal affect, normal mood. SKIN: Warm, dry, normal turgor. No rashes or lesions noted. Course - Re-evaluation Re-evalutation: Patient does appear to have otitis media on exam, this is borderline on the right, she has posterior cervical adenopathy which has been coming and going reportedly. This appears to be the cause. She has no headache, nuchal rigidity, fever, oropharyngeal concerns, neck concerns otherwise. She was initially tachycardic, with her history of diabetes we did perform work-up, this was very unremarkable including CBC, chemistry, test. Patient persisted in asking for HIV screen, this was performed, I recommended she follow-up and have additional testing with primary care and health department if she is concerned. She will be started on antibiotics, antiallergy because of he r recurrent symptoms with her ears, discussed follow-up and return precautions. Patient states appreciation and agreement. Stable and well-appearing at time of discharge. Vital signs normalized on repeat. - Vital Signs Vital signs: Temp Pulse Resp BP Pulse Ox 98.1 F 85 18 116/76 100 12/14/19 05:22 12/14/19 05:22 12/14/19 05:22 12/14/19 05:22 12/14/19 05:22 - Laboratory Result Diagrams: 12/14/19 03:49 12/14/19 03:49 Laboratory results interpreted by me: 12/14/19 03:49 Plt Count 120 L Discharge - Discharge Clinical Impression: Posterior cervical lymphadenopathy Otitis media Qualifiers: Otitis media type: suppurative Chronicity: acute Laterality: left Recurrence: non-recurrent Spontaneous tympanic membrane rupture: without spontaneous rupture Qualified Code(s): H66.002 - Acute suppurative otitis media without spontaneous rupture of ear drum, left ear Condition: Stable Disposition: HOME, SELF-CARE Additional Instructions: Your evaluation is consistent with a ear infection, take antibiotics as prescribed. Take Tylenol or ibuprofen as needed for pain. Because of your recurrent symptoms I do recommend the antiallergy medication as prescribed, take this daily for best effect. Consider rqlw-bwa-smgwydl nasal sprays as well such as fluticasone. Your lymph node swelling should resolve as this problem resolves. Follow-up care for additional management. Return if you worsen including severe headache, vomiting, developing fever, swelling or redness at the ear, or any other concerning or worsening symptoms. Prescriptions: Fexofenadine HCl [Martha Allergy] 180 mg PO DAILY #30 tablet Amoxicillin Trihydrate [Amoxil 500 mg Capsule] 1,000 mg PO BID 7 Days #28 capsule Referrals: JOSELITO ARDON DO [Primary Care Provider] - Follow up as needed
[2019-12-14 04:02] LABS: ABSOLUTE BASOPHILS # (AUTO) 0.1 10^3/uL (0.0-0.2); ABSOLUTE EOSINOPHILS # (AUTO) 0.2 10^3/uL (0.0-0.6); ABSOLUTE MONOCYTES (AUTO) 0.6 10^3/uL (0.1-1.4); ABSOLUTE NEUT (AUTO) 4.1 10^3/uL (1.7-8.2); BASOPHILS % (AUTO) 0.8 % (0-2); EOSINOPHILS % (AUTO) 2.4 % (0-6); HEMATOCRIT 42.7 % (36.0-47.0); HEMOGLOBIN 14.7 g/dL (12.0-15.5); MEAN CORPUSCULAR HEMOGLOBIN 31.8 pg (27.0-33.4); MEAN CORPUSCULAR HGB CONC 34.5 g/dL (32.0-36.0); MEAN CORPUSCULAR VOLUME 92 fl (80-97); MONOCYTES % (AUTO) 9.2 % (3-13); PLATELET COUNT 120 10^3/uL (150-450); RED BLOOD COUNT 4.64 10^6/uL (3.72-5.28); RED CELL DISTRIBUTION WIDTH 13.2 % (11.5-14.0); SEGMENTED NEUTROPHILS % (AUTO) 58.6 % (42-78); TOTAL CELLS COUNTED % (AUTO) 100 %; WHITE BLOOD COUNT 6.9 10^3/uL (4.0-10.5)
[2019-12-14 04:35] LABS: ANION GAP 8 (5-19); BLOOD UREA NITROGEN 11 mg/dL (7-20); CALCIUM 9.4 mg/dL (8.4-10.2); CARBON DIOXIDE 25 mmol/L (22-30); CHLORIDE 105 mmol/L (98-107); GLUCOSE 105 mg/dL (75-110); POTASSIUM 3.8 mmol/L (3.6-5.0)
[2019-12-14 05:24] VITALS: BP 116/76
== END 2019-12-14 05:29 | disposition home or self-care (01) ==
LOC: ER 01:58
DX: H66.002 Acute suppurative otitis media without spontaneous rupture of ear drum, left ear (principal); R59.0 Localized enlarged lymph nodes; E10.9 Type 1 diabetes mellitus without complications; F31.9 Bipolar disorder, unspecified; Z79.899 Other long term (current) drug therapy; Z79.4 Long term (current) use of insulin; Z91.040 Latex allergy status; Z88.2 Allergy status to sulfonamides
CPT/HCPCS: 36415; 80048; 84703; 85025; 86701; 99283

== ENCOUNTER 2020-05-13 21:15 | Observation (INO) | payer OTHER ==
[2020-05-13 22:33] LABS: ABSOLUTE EOSINOPHILS # (AUTO) 0.1 10^3/uL (0.0-0.6); ABSOLUTE LYMPHOCYTES (AUTO) 1.6 10^3/uL (0.5-4.7); ABSOLUTE MONOCYTES (AUTO) 0.3 10^3/uL (0.1-1.4); ABSOLUTE NEUT (AUTO) 3.7 10^3/uL (1.7-8.2); BASOPHILS % (AUTO) 0.7 % (0-2); EOSINOPHILS % (AUTO) 1.8 % (0-6); RED CELL DISTRIBUTION WIDTH 12.6 % (11.5-14.0); TOTAL CELLS COUNTED % (AUTO) 100 %
[2020-05-13 22:38] LABS: HEMATOCRIT 44.3 % (36.0-47.0); HEMOGLOBIN 14.6 g/dL (12.0-15.5); LYMPHOCYTES % (AUTO) 28.2 % (13-45); MEAN CORPUSCULAR HEMOGLOBIN 31.5 pg (27.0-33.4); MEAN CORPUSCULAR HGB CONC 32.9 g/dL (32.0-36.0); MEAN CORPUSCULAR VOLUME 96 fl (80-97); MONOCYTES % (AUTO) 5.3 % (3-13); PLATELET COUNT 110 10^3/uL (150-450); RED BLOOD COUNT 4.63 10^6/uL (3.72-5.28); WHITE BLOOD COUNT 5.8 10^3/uL (4.0-10.5)
[2020-05-13 22:41] LABS: APPEARANCE,URINE SLIGHTLY-CLOUDY; BILIRUBIN,URINE NEGATIVE (NEGATIVE); COLOR,URINE STRAW; GLUCOSE, URINE >=500 mg/dL (NEGATIVE); KETONES,URINE 20 mg/dL (NEGATIVE); LEUKOCYTE ESTERASE,URINE MODERATE (NEGATIVE); NITRITE,URINE NEGATIVE (NEGATIVE); PROTEIN,URINE NEGATIVE (NEGATIVE); URINE SPECIFIC GRAVITY 1.022; UROBILINOGEN,URINE NEGATIVE mg/dL (<2.0)
[2020-05-13 22:50] LABS: ALBUMIN 4.8 g/dL (3.5-5.0); ALKALINE PHOSPHATASE 86 U/L (38-126); ANION GAP 16 (5-19); ASPARTATE AMINO TRANSFERASE 25 U/L (14-36); BILIRUBIN,DIRECT 0.4 mg/dL (0.0-0.4); BILIRUBIN,TOTAL 1.9 mg/dL (0.2-1.3); BLOOD UREA NITROGEN 16 mg/dL (7-20); CALCIUM 9.5 mg/dL (8.4-10.2); CARBON DIOXIDE 19 mmol/L (22-30); CHLORIDE 89 mmol/L (98-107); POTASSIUM 5.6 mmol/L (3.6-5.0); TOTAL PROTEIN 7.9 g/dL (6.3-8.2)
[2020-05-13 23:05] LABS: GLUCOSE 950 mg/dL (75-110)
--- NOTE | 2020-05-13 23:42 | ER Document Report ---
ED General - General Chief Complaint: Chest Tightness Stated Complaint: NAUSEA CHEST TIGHTNESS Cannot obtain history due to: Unstable vital signs Notes: 24-year-old female history of type 1 diabetes, psychiatric history presents with approximately 1week polyuria, polydipsia, nausea high measurements on home glucose checks, and shortness of breath. Patient says that she turned off her insulin pump approximately 1 month ago and has been using NovoLog and Lantus but had not recently gone to brain picker to have doses optimized for these drugs. Patient has been getting "high "measurements on her glucometer for the past few days. Patient feels generally weak and has some lightheadedness when she changes position, also the next been having sensation that her chest is "tight "and feeling like she needs to breathe more rapidly. Patient denies any chest pain, recent illness, fever, urinary symptoms, vomiting, abdominal pain, diarrhea constipation, myalgia, cough/cold symptoms, DVT/PE/hypercoagulability history in self or family, recent travel/trauma/surgery/immobilization, lower extremity edema, cough/hemoptysis, cancer history, exogenous estrogen (takes depo provera), cardiac history TRAVEL OUTSIDE OF THE [place] 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 Patient has homicidal ideation: No - Past Medical History Cardiac Medical History: Reports: Hx Hypercholesterolemia Endocrine Medical History: Reports: Hx Diabetes Mellitus Type 1 Renal/ Medical History: Denies: Hx Peritoneal Dialysis Psychiatric Medical History: Reports: Hx Anxiety, Hx Bipolar Disorder, Hx Depression, Hx Post Traumatic Stress Disorder Past Surgical History: Reports: Hx Abdominal Surgery - double hernia repair, Hx Herniorrhaphy, Hx Inguinal Hernia - Immunizations Immunizations up to date: Yes Hx Diphtheria, Pertussis, Tetanus Vaccination: Yes Review of Systems - Review of Systems Notes: REVIEW OF SYSTEMS: CONSTITUTIONAL : Denies fever, chills, or sweats. EENT: Denies recent cold/sinus symptoms, denies throat pain CARDIOVASCULAR: + chest pain, -CATRINA RESPIRATORY: Denies cough, +shortness of breath. GASTROINTESTINAL: Denies abdominal pain, vomiting. GENITOURINARY: Denies difficulty urinating, painful urination. FEMALE GENITOURINARY: Denies abnormal vaginal bleeding, vaginal discharge. MUSCULOSKELETAL: Denies neck pain, back pain. SKIN: Denies rash or skin lesions. HEMATOLOGIC : Denies easy bruising or bleeding. LYMPHATIC: Denies swollen, enlarged glands. NEUROLOGICAL: Denies headache, denies change in gait. PSYCHIATRIC: Denies anxiety or stress or depression. Physical Exam - Vital signs Vitals: Temp Pulse Resp BP Pulse Ox 98.5 F 98 16 116/66 98 05/13/20 21:55 05/13/20 21:55 05/13/20 21:55 05/13/20 21:55 05/13/20 21:55 - Notes Notes: PHYSICAL EXAMINATION: GENERAL: Well-appearing, well-nourished, alert, talkative, cheerful appearing young adult woman sitting up in stretcher with no signs of discomfort and in no acute distress. HEAD: Atraumatic, normocephalic. EYES: Pupils equal round and appropriate constriction, sclera anicteric, conjunctiva are normal. ENT: nares patent, dry mucous membranes. NECK: Normal range of motion, supple without lymphadenopathy LUNGS: Breath sounds clear to auscultation bilaterally and equal. No wheezes rales or rhonchi. Very mildly tachypneic, normal respiratory effort, speaking in full sentences, no accessory muscle use HEART: Borderline tachycardic, regular rhythm, no murmurs rubs or gallops ABDOMEN: Soft, nontender, no guarding, no masses, no CVAT EXTREMITIES: Normal range of motion, no pitting or edema. No cyanosis. NEUROLOGICAL: Awake, alert, conversing appropriately, moves all extremities spontaneously. PSYCH: Normal mood, normal affect. SKIN: Warm, Dry, normal turgor, no rashes or lesions noted. Course - Re-evaluation Re-evalutation: 05/14/20 01:50 Patient presentation concerning for DKA, not consistent with given presence of ketosis and lack of any mental status symptoms. Patient has had similar chest tightness and shortness of breath with previous DKA episodes but given that patient significantly dehydrated and also on progestin which gives mildly increased risk of PE and presence of mildly worsened tachycardia after administration of fluids will rule out with dimer plus minus CTA as per results of dimer as patient has low Wells criteria. Patient started on insulin drip, patient had recently restarted her insulin pump which I requested that she stop now, patient given insulin bolus, discussed case with Dr. Tariq who has accepted patient to observation IMCU. Lack of other cardiac risk factors, and no signs of ischemia on EKG, 1 troponin is sufficient for ACS ruleout given low pretest probability. - Vital Signs Vital signs: Temp Pulse Resp BP Pulse Ox 97.9 F 79 19 116/58 L 97 05/14/20 05:07 05/14/20 05:07 05/14/20 05:07 05/14/20 05:07 05/14/20 05:07 - Laboratory Result Diagrams: 05/13/20 22:18 05/13/20 22:18 Laboratory results interpreted by me: 05/13/20 05/13/20 05/13/20 21:52 22:18 22:18 Plt Count 110 L VBG pCO2 VBG HCO3 Sodium 124.1 L Potassium 5.6 H Chloride 89 L Carbon Dioxide 19 L Glucose 950 H* Total Bilirubin 1.9 H Urine Glucose (UA) >=500 H Urine Ketones 20 H Urine Blood MODERATE H Ur Leukocyte Esterase MODERATE H 05/13/20 23:58 Plt Count VBG pCO2 32.4 L VBG HCO3 16.6 L Sodium Potassium Chloride Carbon Dioxide Glucose Total Bilirubin Urine Glucose (UA) Urine Ketones Urine Blood Ur Leukocyte Esterase - Diagnostic Test Radiology results interpreted by me: 05/13/20 23:42 Normal sinus rhythm, no significant ST elevations or depressions, no significant T wave abnormalities, normal QTC Discharge - Discharge Clinical Impression: DKA (diabetic ketoacidoses) Qualifiers: Diabetes mellitus type: type 1 Diabetes mellitus complication detail: without coma Qualified Code(s): E10.10 - Type 1 diabetes mellitus with ketoacidosis without coma Chest pain Qualifiers: Chest pain type: unspecified Qualified Code(s): R07.9 - Chest pain, unspecified Disposition: ADMITTED OBSERVATION Admitting Provider: Chandni (Hospitalist) Unit Admitted: IMCU
[2020-05-13] MEDS ORDERED: RINGERS SOLUTION,LACTATED 1,000 ML IV PRN (23:50)
[2020-05-14 00:20] LABS: VENOUS BLOOD BASE EXCESS -8.2 mmol/L; VENOUS BLOOD HCO3 16.6 mmol/L (20-32); VENOUS BLOOD PCO2 32.4 mmHg (35-63); VENOUS BLOOD PH 7.33 (7.30-7.42)
[2020-05-14] MEDS ORDERED: NORMAL SALINE 100 ML with INSULIN REGULAR, HUMAN 100 UNIT IV PRN ×4 (00:55→04:29)
[2020-05-14] MEDS ORDERED: METHYLPREDNISOLONE INJ 125 MG/2 ML SDV IV ONE (00:57)
[2020-05-14] MEDS ORDERED: DIPHENHYDRAMINE HCL 50 MG/ML VIAL IV ONE (00:57)
[2020-05-14] MEDS ORDERED: INSULIN REG, HUMAN 100 UNIT/ML 3 ML VIAL (PYX) IV ONE (01:06)
--- NOTE | 2020-05-14 02:17 | RADIOLOGY REPORT (SQ) ---
EXAM DESCRIPTION: XR CHEST 1 VIEW COMPLETED DATE/TME: 05/14/2020 00:56 CLINICAL HISTORY: 24 years, Female, sob COMPARISON: None. NUMBER OF VIEWS: 1 TECHNIQUE: Portable LIMITATIONS: None. FINDINGS: Heart size normal. Lungs clear. No pneumothorax IMPRESSION: Negative chest copyright 2011 [employer]- All Rights Reserved
[2020-05-14] MEDS ORDERED: RINGERS SOLUTION,LACTATED 1,000 ML IV PRN (04:25)
[2020-05-14] MEDS ORDERED: PROMETHAZINE HCL INJ 25 MG/1 ML VIAL IV PRN (04:25)
[2020-05-14] MEDS ORDERED: MAGNESIUM HYDROXIDE SUSP 30 ML UDCUP PO PRN (04:25)
[2020-05-14] MEDS ORDERED: MAG HYDROX/AL HYDROX/SIMETH SUSP 30 ML UDCUP PO PRN (04:25)
[2020-05-14] MEDS ORDERED: DEXTROSE 50%-WATER 25 GM/50 ML DISP.SYRIN IV PRN ×2 (04:29)
[2020-05-14] MEDS ORDERED: DEXTROSE 40% GEL 15 GM TUBE PO PRN ×2 (04:29)
[2020-05-14] MEDS ORDERED: GLUCAGON,HUMAN RECOMB 1 MG INJ IM PRN (04:29)
[2020-05-14] MEDS ORDERED: MORPHINE SULFATE 10 MG/ML INJ IV PRN ×4 (04:30→05:18)
[2020-05-14] MEDS ORDERED: LORAZEPAM INJ 2 MG/1 ML VIAL IV PRN (04:30)
[2020-05-14] MEDS ORDERED: DIPHENHYDRAMINE HCL 50 MG/ML VIAL IV PRN (04:30)
[2020-05-14] MEDS ORDERED: ACETAMINOPHEN 325 MG TABLET PO PRN (04:30)
[2020-05-14 04:45] LABS: VENOUS BLOOD HCO3 22.5 mmol/L (20-32); VENOUS BLOOD PCO2 37.9 mmHg (35-63); VENOUS BLOOD PH 7.39 (7.30-7.42)
[2020-05-14 05:23] VITALS: BP 116/58
[2020-05-14] MEDS ORDERED: HEPARIN SOD (PORCINE) 5,000 UNIT/ML 1 ML VIAL SUBCUT SCH (06:00)
--- NOTE | 2020-05-14 06:08 | PDOC H&P ---
History of Present Illness Admission Date/PCP: 05/14/20 02:01 JOSELITO ARDON DO Patient complains of: Nausea History of Present Illness: RONIT MARQUEZ is a 24 year old female who presented to the emergency room with a one-week history of nausea. She admits constant nausea over the course of the last week accompanied by malaise, polyuria, polydipsia, generalized weakness and orthostatic lightheadedness. Her nausea has been associated with dyspnea, a vague chest tightness and high blood sugars. She recently changed her insulin usage from an insulin pump to NovoLog and Lantus subcutaneously. 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 She has been having high glucometer readings for the last week or so. She denies other associated or accompanying signs and symptoms. She admits prior similar episodes with DKA. She has not identified any additional aggravating or ameliorating factors for her nausea. In the emergency room she was found to have a blood sugar of 950 with positive ketones but was not noted to be acidotic. She was treated with IV insulin and an insulin infusion by the emergency room physician. She was subsequently admitted observation status for further evaluation and treatment. Past Medical History Cardiac Medical History: Reports: Hyperlipidema Denies: Atrial Fibrillation, Congestive Heart Failure, Coronary Artery Disease, Myocardial Infarction, Hypertension Pulmonary Medical History: Denies: Asthma, Chronic Obstructive Pulmonary Disease (COPD) EENT Medical History: Denies: Cataracts, Ears - Hearing aids Neurological Medical History: Denies: Migraine, Multiple Sclerosis, Seizures Endocrine Medical History: Reports: Diabetes Mellitus Type 1 Denies: Hyperthyroidism, Hypothyroidism, Obesity Renal/ Medical History: Denies: Chronic Kidney Disease, Nephrolithiasis Malignancy Medical History: Reports: None GI Medical History: Denies: Cirrhosis, Hepatitis, Peptic Ulcer Disease Musculoskeltal Medical History: Denies: Arthritis, Fibromyalgia Skin Medical History: Denies: Eczema, Psoriasis Psychiatric Medical History: Reports: Bipolar Disorder, Depression, Post Traumatic Stress Disorder Denies: Alcohol Dependency, Substance Abuse, Tobacco Dependency Traumatic Medical History: Reports: None Hematology: Denies: Anemia, Bleeding Tendencies Infectious Medical History: Reports: None Past Surgical History Past Surgical History: Reports: Herniorrhaphy Social History Information Source: Patient Lives with: Family Smoking Status: Former Smoker Electronic Cigarette use?: No Frequency of Alcohol Use: Occasional Hx Recreational Drug Use: No Drugs: None Hx Prescription Drug Abuse: No - Advance Directive Resuscitation Status: Full Code Surrogate healthcare decision maker:: King Marquez Family History Family 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, 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 denies: CAD, DM, H ypertension Parental Family History Reviewed: Yes Children Family History Reviewed: No Sibling(s) Family History Reviewed.: Yes Medication/Allergy Home Medications: Aripiprazole [Abilify 15 mg Tablet] 15 mg PO QPM 09/09/17 Diphenhydramine HCl [Benadryl] 50 mg PO HSP PRN 09/09/17 Insulin Aspart [Novolog Flexpen] 0 units SQ .PERSLIDINGSCALE #1 insuln.pen 09/09/17 Insulin Glargine,Hum.rec.anlog [Lantus Solostar] 20 units SQ QPM #1 insuln.pen 09/09/17 Pnv No.95/Ferrous Fum/Folic AC [ Formula Tablet] 1 tab PO DAILY 09/09/17 Topiramate [Topamax] 200 mg PO Q12 09/09/17 Cephalexin Monohydrate [Keflex 500 mg Capsule] 500 mg PO Q6H 5 Days #20 capsule 05/26/18 Metronidazole [Flagyl 500 mg Tablet] 500 mg PO BID #14 tablet 05/26/18 Cephalexin Monohydrate [Keflex 500 mg Capsule] 500 mg PO Q6H 5 Days capsule 06/07/18 Amoxicillin Trihydrate [Amoxil 500 mg Capsule] 1,000 mg PO BID 7 Days #28 capsule 12/14/19 Fexofenadine HCl [Martha Allergy] 180 mg PO DAILY #30 tablet 12/14/19 Allergies/Adverse Reactions: latex Allergy (Verified 11/09/17 17:14) Sulfa (Sulfonamide Antibiotics) Allergy (Verified 11/09/17 17:14) Review of Systems ROS unobtainable: Due to endotracheal tube Constitutional: PRESENT: as per HPI, weakness - Generalized, other - Malaise. ABSENT: chills, fever(s) Eyes: ABSENT: visual disturbances, other - Eye pain Ears: ABSENT: hearing changes, other - Ear pain Nose, Mouth, and Throat: ABSENT: headache(s), sore throat Cardiovascular: PRESENT: other - Chest tightness, orthostatic lightheadedness. ABSENT: chest pain, palpitations Respiratory: PRESENT: as per HPI, dyspnea. ABSENT: cough Gastrointestinal: PRESENT: nausea. ABSENT: abdominal pain, constipation, diarrhea, vomiting Genitourinary: ABSENT: dysuria, hematuria Musculoskeletal: ABSENT: back pain, joint swelling Integumentary: ABSENT: pruritus, rash Neurological: ABSENT: confusion, convulsions, focal weakness, memory loss, syncope Psychiatric: ABSENT: anxiety, depression Endocrine: PRESENT: polydipsia, polyuria. ABSENT: cold intolerance, heat intolerance Hematologic/Lymphatic: ABSENT: easy bleeding, easy bruising Allergic/Immunologic: ABSENT: seasonal rhinorrhea Physical Exam Vital Signs: Temp Pulse Resp BP Pulse Ox 98.5 F 98 18 106/58 L 100 05/14/20 02:00 05/13/20 21:55 05/14/20 02:00 05/13/20 23:24 05/14/20 02:00 Intake & Output 05/12/20 05/13/20 05/14/20 23:59 23:59 23:59 Intake Total 1007 Balance 1007 Weight 53.524 kg General appearance: PRESENT: no acute distress, cooperative Head exam: PRESENT: atraumatic, normocephalic Eye exam: PRESENT: conjunctiva pink. ABSENT: conjunctival injection, scleral icterus Ear exam: PRESENT: normal external ear exam. ABSENT: bleeding, drainage Mouth exam: PRESENT: dry mucosa, neck supple Neck exam: ABSENT: thyromegaly, tracheal deviation Respiratory exam: PRESENT: clear to auscultation hui, symmetrical, unlabored Cardiovascular exam: PRESENT: RRR. ABSENT: clicks, gallop, rubs Pulses: PRESENT: normal radial pulses, normal dorsalis pedis pul Vascular exam: PRESENT: normal capillary refill. ABSENT: pallor GI/Abdominal exam: PRESENT: normal bowel sounds, soft Rectal exam: PRESENT: deferred Extremities exam: ABSENT: joint swelling, pedal edema Musculoskeletal exam: ABSENT: deformity, dislocation Neurological exam: PRESENT: alert, oriented to person, oriented to place, oriented to time, oriented to situation, CN II-XII grossly intact. ABSENT: motor sensory deficit Psychiatric exam: PRESENT: appropriate affect, normal mood Skin exam: PRESENT: dry, intact, warm. ABSENT: jaundice, rash, urticaria Results Laboratory Results: 05/13/20 22:18 05/13/20 22:18 05/13/20 05/13/20 05/13/20 21:52 22:18 22:18 WBC 5.8 RBC 4.63 Hgb 14.6 Hct 44.3 MCV 96 MCH 31.5 MCHC 32.9 RDW 12.6 Plt Count 110 L Seg Neutrophils % 64.0 VBG pH VBG pCO2 VBG HCO3 VBG Base Excess Sodium 124.1 L Potassium 5.6 H Chloride 89 L Carbon Dioxide 19 L Anion Gap 16 BUN 16 Creatinine 0.92 Est GFR ( Amer) > 60 Glucose 950 H* Calcium 9.5 Total Bilirubin 1.9 H AST 25 Alkaline Phosphatase 86 Total Protein 7.9 Albumin 4.8 Urine Color STRAW Urine Appearance SLIGHTLY-CLOUDY Urine pH 5.0 Ur Specific [place] 1.022 Urine Protein NEGATIVE Urine Glucose (UA) >=500 H Urine Ketones 20 H Urine Blood MODERATE H Urine Nitrite NEGATIVE Ur Leukocyte Esterase MODERATE H Urine WBC (Auto) 12 Urine RBC (Auto) 3 05/13/20 23:58 WBC RBC Hgb Hct MCV MCH MCHC RDW Plt Count Seg Neutrophils % VBG pH 7.33 VBG pCO2 32.4 L VBG HCO3 16.6 L VBG Base Excess -8.2 Sodium Potassium Chloride Carbon Dioxide Anion Gap BUN Creatinine Est GFR ( Amer) Glucose Calcium Total Bilirubin AST Alkaline Phosphatase Total Protein Albumin Urine Color Urine Appearance Urine pH Ur Specific [place] Urine Protein Urine Glucose (UA) Urine Ketones Urine Blood Urine Nitrite Ur Leukocyte Esterase Urine WBC (Auto) Urine RBC (Auto) 05/13/20 22:18 Troponin I < 0.012 Impressions: Chest X-Ray 05/14/20 00:56 IMPRESSION: Negative chest copyright 2010 [employer]- All Rights Reserved Assessment and Plan - Diagnosis (1) Type 1 diabetes mellitus with hyperglycemia, with long-term current use of insulin Is this a current diagnosis for this admission?: Yes (2) 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 She will be treated with IV fluids utilizing lactated Ringer's solution at 250 mL/h. She will use Ativan 1 mg IV every 4 hours as needed for anxiety or restlessness. She will use morphine sulfate 2 to 4 mg IV every 2 hours as needed pain. She will receive Phenergan 12.5 mg IV every 4 hours as needed for nausea or vomiting. She is currently on an insulin infusion per protocol which will be followed until her blood sugars have normalized and her electrolyte status has returned to normal. She will be treated with a diabetic diet. Additional laboratory and/or radiographic evaluations will be obtained as needed. - Time Time Spent with patient: 15-24 minutes Medications reviewed and adjusted accordingly: Yes Anticipated Discharge Disposition: Home, Self Care Anticipated Discharge Timeframe: within 36 hours - Inpatient Certification Based on my medical assessment, after consideration of the patient's bao rbidities, presenting symptoms, or acuity I expect that the services needed warrant INPATIENT care.: No I certify that my determination is in accordance with my understanding of Medicare's requirements for reasonable and necessary INPATIENT services [42 CFR 412.3e].: No
--- NOTE | 2020-05-14 06:09 | Left Against Medical Advice ---
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 RONIT MARQUEZ is a 24 F, who LEFT AGAINST MEDICAL ADVICE. The Patient was admitted on 05/14/20 02:01.
--- NOTE | 2020-05-14 09:09 | EKG REPORT ---
SEVERITY:- NORMAL ECG - SINUS RHYTHM : Confirmed by: Radha Ceron 14-May-2020 09:08:55
[2020-05-14] MEDS ORDERED: DOCUSATE SODIUM 100 MG CAPSULE PO SCH (10:00)
== END 2020-05-14 06:05 | disposition left against medical advice (07) ==
LOC: ER 21:15 → EH 05-14 02:01 → 3S 05-14 05:05
PROVIDERS: ADMIT Emergency Medicine; ATTEND Emergency Medicine
DX: E10.10 Type 1 diabetes mellitus with ketoacidosis without coma (principal); E87.1 Hypo-osmolality and hyponatremia; R11.0 Nausea; R07.89 Other chest pain; E86.0 Dehydration; R00.0 Tachycardia, unspecified; Z87.891 Personal history of nicotine dependence; Z79.899 Other long term (current) drug therapy; Z98.890 Other specified postprocedural states
CPT/HCPCS: 93005; 99285; 96361; 96375; 96365; 96366; 36415 ×2; 87086; 82962; 85025; 81025; 80053; 81001; 84484; 85379; 82803; 71045; 93010; G0378 ×2; J1200; J2930; J1815; J7120